=== PATIENT | male | born 1945 | race Caucasian/White ===

== ENCOUNTER → 2016-10-07 | Outpatient (CLI) | payer MEDICARE, BC ==
[~2016-10-07] MED LIST: ALDACTONE25 M1 PO; ASPI-COR81 M1 PO; LISINOPRIL10 MG PO; MEDROL DOSEPAK4 MG PO; OMEPRAZOLE D/R20 MG PO; PRAVASTATIN SOD10 MG PO; TOPROL XL100 MG PO; VIBRAMYCIN100 MG PO; WARFARIN SOD5 MG PO
[2016-10-07 11:05] LABS: POTASSIUM 4.4 mmol/L (3.5-5.1)
== END | disposition home or self-care (01) ==
LOC: LAB 09:48
PROVIDERS: Internal Medicine Cardiovascular Disease
DX: I42.9 Cardiomyopathy, unspecified (principal); I48.92 Unspecified atrial flutter; I51.9 Heart disease, unspecified; I27.2 Other secondary pulmonary hypertension

== ENCOUNTER → 2016-11-16 | Outpatient (CLI) | payer MEDICARE, BC ==
[2016-11-16 15:09] LABS: BUN 29 mg/dl (7-24); CARBON DIOXIDE 31 mmol/L (21-32); CHLORIDE 105 mmol/L (98-107); EST GLOM FILT AFRICAN AMERICAN > 60 ml/min; GLUCOSE 100 mg/dL (65-99); POTASSIUM 4.7 mmol/L (3.5-5.1); SODIUM 143 mmol/L (136-145)
== END | disposition home or self-care (01) ==
LOC: LAB 13:49
PROVIDERS: Internal Medicine Cardiovascular Disease
DX: I42.9 Cardiomyopathy, unspecified (principal)

== ENCOUNTER → 2017-01-13 | Outpatient (CLI) | payer MEDICARE, BC ==
[2017-01-13 09:18] LABS: BASO # 0.1 10*3/uL (0.0-0.1); BASO % 1.1 % (0.0-1.0); EOS # 0.4 10*3/uL (0.0-0.4); EOS % 4.7 % (1.0-4.0); HEMATOCRIT 52.3 % (42.0-52.0); HEMOGLOBIN 16.7 g/dl (14.0-18.0); LYMPH # 2.2 10*3/uL (1.3-4.4); LYMPH % 23.6 % (27.0-41.0); MEAN CELL VOLUME 93.7 fl (80.0-94.0); MEAN CORPUSCULAR HGB 29.9 pg (27.0-31.0); MEAN CORPUSCULAR HGB CONC 31.9 g/dl (33.0-37.0); MEAN PLATELET VOLUME 12.2 fl (9.6-12.3); MONO % 10.7 % (3.0-9.0); NEUT # 5.5 10*3/uL (2.3-7.9); NEUT % 59.5 % (47.0-73.0); PLATELET COUNT AUTOMATED 173 10*3/uL (130-400); RED BLOOD COUNT 5.58 10*6/uL (4.50-5.90); RED CELL DISTRI WIDTH 14.3 % (0-14.5); WHITE BLOOD COUNT 9.2 10*3/uL (4.8-10.8)
[2017-01-13 10:00] LABS: ALBUMIN 3.9 gm/dl (3.1-4.5); ALKALINE PHOSPHATASE 86 U/L (45-117); BILIRUBIN, DIRECT 0.3 mg/dL (0.0-0.2); BUN 31 mg/dl (7-24); CHLORIDE 102 mmol/L (98-107); CHOLESTEROL 163 mg/dL (<200); CREATININE 1.28 mg/dL (0.70-1.30); HDL CHOLESTEROL 44 mg/dl (40-60); LDL CHOLESTEROL 105 mg/dL (9-159); POTASSIUM 4.5 mmol/L (3.5-5.1); SGOT/AST 19 IU/L (3-35); SGPT/ALT 28 U/L (12-78); SODIUM 138 mmol/L (136-145); THYROXINE (T4) TOTAL 10.5 ug/dl (4.5-12.1); TOTAL PROTEIN 8.3 gm/dL (6.4-8.2); TRIGLYCERIDES 72 mg/dl (<150); VLDL CHOLESTEROL 14 mg/dL (6-40)
== END | disposition home or self-care (01) ==
LOC: LAB 08:19
PROVIDERS: Family Medicine
DX: Z12.5 Encounter for screening for malignant neoplasm of prostate (principal); I50.9 Heart failure, unspecified; R35.1 Nocturia; R60.0 Localized edema; R06.02 Shortness of breath; F17.200 Nicotine dependence, unspecified, uncomplicated; Z95.0 Presence of cardiac pacemaker

== ENCOUNTER → 2017-05-14 | Outpatient (CLI) | payer MEDICARE | END | disposition home or self-care (01) | LOC: RAD 13:52 | DX: M25.511 Pain in right shoulder (principal) ==

== ENCOUNTER 2017-07-05 19:56 | Inpatient (IN) | payer MEDICARE ==
[~2017-07-05] VITALS: Ht 175.2 cm; Wt 72.6 kg
[~2017-07-05 19:56] MED LIST changes: -BACTRIM 400-801 EACH PO; -DIGOXIN250 MCG PO; -ENTRESTO 97 MG1 EACH PO; -LASIX20 MG PO; -METOPROLOL SUC100 M1 PO; -VITAMIN D31000 UNIT PO; -XARE15TA PO
[2017-07-05 20:00] VITALS: BP 95/62
[2017-07-05 20:02] VITALS: BP 97/64
[2017-07-05 20:17] LABS: HEMATOCRIT 50.1 % (42.0-52.0); HEMOGLOBIN 15.9 g/dl (14.0-18.0); MEAN CELL VOLUME 91.8 fl (80.0-94.0); MEAN CORPUSCULAR HGB 29.1 pg (27.0-31.0); MEAN CORPUSCULAR HGB CONC 31.7 g/dl (33.0-37.0); MEAN PLATELET VOLUME 10.8 fl (9.6-12.3); PLATELET COUNT AUTOMATED 339 10*3/uL (130-400); RED BLOOD COUNT 5.46 10*6/uL (4.50-5.90); RED CELL DISTRI WIDTH 14.4 % (0-14.5); WHITE BLOOD COUNT 18.1 10*3/uL (4.8-10.8)
[2017-07-05 20:26] LABS: ACT PARTIAL THROMBO TIME 28.9 SECONDS (20.8-31.5); INTERNATIONAL NORM RATIO 1.2 (2.0-3.5)
[2017-07-05 20:29] VITALS: BP 90/58; BP 93/58
[2017-07-05 20:33] LABS: ALBUMIN 3.3 gm/dl (3.1-4.5); ALKALINE PHOSPHATASE 83 U/L (45-117); BUN 48 mg/dl (7-24); CHLORIDE 106 mmol/L (98-107); CREATININE 1.98 mg/dL (0.70-1.30); SGOT/AST 16 IU/L (3-35); SGPT/ALT 31 U/L (12-78); SODIUM 137 mmol/L (136-145); TOTAL PROTEIN 7.5 gm/dL (6.4-8.2)
[2017-07-05 20:39] LABS: POTASSIUM 6.5 mmol/L (3.5-5.1); TROPONIN I < 0.015 ng/ml (<0.045)
[2017-07-05 20:47] LABS: VACUOLATION OF NEUTROPHILS SLIGHT
[2017-07-05 20:51] LABS: TOTAL CELLS COUNTED 100 #CELLS
[2017-07-05 20:53] LABS: BASOPHILS 1 % (0-1)
[2017-07-05 20:54] LABS: PLATELET SUFFICIENCY NORMAL (NORMAL); TOXIC GRANULATION SLIGHT
[2017-07-05] MEDS ORDERED: ENTRESTO 97 MG1 EACH PO (21:46)
[2017-07-05] MEDS ORDERED: XARE15TA PO (21:47)
[2017-07-05] MEDS ORDERED: DIGOXIN250 MCG PO (21:49)
[2017-07-05] MEDS ORDERED: LASIX20 MG PO (21:50)
[2017-07-05 22:25] LABS: CREATININE 1.9 mg/dL (0.70-1.30)
[2017-07-05 22:26] LABS: POTASSIUM 6.5 mmol/L (3.5-5.1)
[2017-07-05] MEDS ORDERED: BACTRIM 400-801 EACH PO (22:31)
[2017-07-06] VITALS: BP 95/60
[2017-07-06 05:54] LABS: HEMATOCRIT 45.3 % (42.0-52.0); HEMOGLOBIN 14.2 g/dl (14.0-18.0); MEAN CELL VOLUME 91.5 fl (80.0-94.0); MEAN CORPUSCULAR HGB 28.7 pg (27.0-31.0); MEAN CORPUSCULAR HGB CONC 31.3 g/dl (33.0-37.0); MEAN PLATELET VOLUME 10.9 fl (9.6-12.3); PLATELET COUNT AUTOMATED 280 10*3/uL (130-400); RED BLOOD COUNT 4.95 10*6/uL (4.50-5.90); RED CELL DISTRI WIDTH 14.4 % (0-14.5); WHITE BLOOD COUNT 14.5 10*3/uL (4.8-10.8)
[2017-07-06 05:56] LABS: CREATININE 1.45 mg/dL (0.70-1.30); POTASSIUM 5.7 mmol/L (3.5-5.1)
[2017-07-06 06:00] LABS: ALBUMIN 2.9 gm/dl (3.1-4.5); CREATININE 1.44 mg/dL (0.70-1.30); PHOSPHOROUS 3.2 mg/dL (2.5-4.9); POTASSIUM 5.7 mmol/L (3.5-5.1); TOTAL PROTEIN 6.5 gm/dL (6.4-8.2)
[2017-07-06 06:06] LABS: THYROID STIM HORMONE (HS) 0.925 uIU/ml (0.358-4.75)
[2017-07-06 07:00] LABS: BASOPHILS 1 % (0-1); PLATELET SUFFICIENCY NORMAL (NORMAL); TOTAL CELLS COUNTED 100 #CELLS
[2017-07-06 07:25] LABS: VITAMIN D, 25-HYDROXY 20.7 ng/mL (30-100)
[2017-07-06 08:00] VITALS: BP 116/62
[2017-07-06 12:00] VITALS: BP 124/58
[2017-07-06 15:35] LABS: BUN 37 mg/dl (7-24); CHLORIDE 106 mmol/L (98-107); CREATININE 1.24 mg/dL (0.70-1.30); POTASSIUM 5.9 mmol/L (3.5-5.1); SODIUM 136 mmol/L (136-145)
[2017-07-06 16:00] VITALS: BP 118/62
[2017-07-06 20:00] VITALS: BP 104/47
[2017-07-07] VITALS: BP 103/51
[2017-07-07 07:23] LABS: HEMATOCRIT 49.4 % (42.0-52.0); HEMOGLOBIN 15.8 g/dl (14.0-18.0); MEAN CORPUSCULAR HGB 29.8 pg (27.0-31.0); MEAN PLATELET VOLUME 10.4 fl (9.6-12.3); PLATELET COUNT AUTOMATED 279 10*3/uL (130-400); RED BLOOD COUNT 5.31 10*6/uL (4.50-5.90); RED CELL DISTRI WIDTH 14.2 % (0-14.5); WHITE BLOOD COUNT 14.7 10*3/uL (4.8-10.8)
[2017-07-07 07:30] LABS: CHLORIDE 107 mmol/L (98-107); CREATININE 1.16 mg/dL (0.70-1.30); POTASSIUM 5.7 mmol/L (3.5-5.1); SODIUM 138 mmol/L (136-145)
[2017-07-07 07:32] LABS: BUN 25 mg/dl (7-24)
[2017-07-07 07:48] LABS: TOTAL CELLS COUNTED 100 #CELLS
[2017-07-07 07:49] LABS: PLATELET SUFFICIENCY NORMAL (NORMAL)
[2017-07-07 08:00] VITALS: BP 110/69
[2017-07-07 12:00] VITALS: BP 116/63
[2017-07-07 15:06] LABS: BUN 25 mg/dl (7-24); CHLORIDE 104 mmol/L (98-107); CREATININE 1.25 mg/dL (0.70-1.30); POTASSIUM 4.9 mmol/L (3.5-5.1); SODIUM 138 mmol/L (136-145)
[2017-07-07] MEDS ORDERED: VITAMIN D31000 UNIT PO (15:13)
[2017-07-07] MEDS ORDERED: METOPROLOL SUC100 M1 PO (15:13)
[2017-07-07 16:00] VITALS: BP 131/72
== END 2017-07-07 16:36 | disposition home or self-care (01) | DRG 683 ==
LOC: ED 19:56 → EDHOLD 20:21 → 4E 20:21
PROVIDERS: Internal Medicine; Internal Medicine Hospice and Palliative Medicine; Student in an Organized Health Care Education/Training Program
DX: N17.0 Acute kidney failure with tubular necrosis (principal); E44.0 Moderate protein-calorie malnutrition; E11.65 Type 2 diabetes mellitus with hyperglycemia; E83.41 Hypermagnesemia; E87.5 Hyperkalemia; I48.0 Paroxysmal atrial fibrillation; I50.32 Chronic diastolic (congestive) heart failure; E87.8 Other disorders of electrolyte and fluid balance, not elsewhere classified; E86.0 Dehydration; E78.5 Hyperlipidemia, unspecified; Z80.0 Family history of malignant neoplasm of digestive organs; J06.9 Acute upper respiratory infection, unspecified; I25.10 Atherosclerotic heart disease of native coronary artery without angina pectoris; J44.9 Chronic obstructive pulmonary disease, unspecified; F17.210 Nicotine dependence, cigarettes, uncomplicated; Z95.0 Presence of cardiac pacemaker; Z79.82 Long term (current) use of aspirin; Z79.899 Other long term (current) drug therapy; Z80.3 Family history of malignant neoplasm of breast; I25.2 Old myocardial infarction

== ENCOUNTER → 2017-07-05 | Outpatient (CLI) | payer MEDICARE ==
[~2017-07-05] MED LIST changes: +BACTRIM 400-801 EACH PO; +DIGOXIN250 MCG PO; +ENTRESTO 97 MG1 EACH PO; +LASIX20 MG PO; +METOPROLOL SUC100 M1 PO; +VITAMIN D31000 UNIT PO; +XARE15TA PO
[2017-07-05 15:13] LABS: HEMATOCRIT 53.3 % (42.0-52.0); HEMOGLOBIN 17.2 g/dl (14.0-18.0); MEAN CELL VOLUME 91.3 fl (80.0-94.0); MEAN CORPUSCULAR HGB 29.5 pg (27.0-31.0); MEAN CORPUSCULAR HGB CONC 32.3 g/dl (33.0-37.0); MEAN PLATELET VOLUME 10.6 fl (9.6-12.3); PLATELET COUNT AUTOMATED 302 10*3/uL (130-400); RED BLOOD COUNT 5.84 10*6/uL (4.50-5.90); RED CELL DISTRI WIDTH 14.4 % (0-14.5); WHITE BLOOD COUNT 17.7 10*3/uL (4.8-10.8)
[2017-07-05 15:31] LABS: ALBUMIN 3.6 gm/dl (3.1-4.5); BILIRUBIN, DIRECT 0.2 mg/dL (0.0-0.2); CREATININE 1.56 mg/dL (0.70-1.30); TOTAL PROTEIN 8.5 gm/dL (6.4-8.2)
[2017-07-05 15:50] LABS: BASOPHILS 1 % (0-1); PLATELET SUFFICIENCY NORMAL (NORMAL); TOTAL CELLS COUNTED 100 #CELLS
[2017-07-05 15:51] LABS: BURR CELLS FEW; TOXIC GRANULATION SLIGHT
[2017-07-05 16:04] LABS: POTASSIUM 6.5 mmol/L (3.5-5.1)
== END | disposition home or self-care (01) ==
LOC: LAB 14:37
PROVIDERS: Family Medicine
DX: M47.896 Other spondylosis, lumbar region (principal); M47.892 Other spondylosis, cervical region; M25.551 Pain in right hip; R20.0 Anesthesia of skin; M25.511 Pain in right shoulder; Z79.899 Other long term (current) drug therapy

== ENCOUNTER → 2017-07-09 | Outpatient (CLI) | payer MEDICARE ==
[~2017-07-09] MED LIST changes: +BACTRIM 400-801 EACH PO; +DIGOXIN250 MCG PO; +ENTRESTO 97 MG1 EACH PO; +LASIX20 MG PO; +METOPROLOL SUC100 M1 PO; +VITAMIN D31000 UNIT PO; +XARE15TA PO
[2017-07-09 11:15] LABS: CHLORIDE 105 mmol/L (98-107); CREATININE 1.31 mg/dL (0.70-1.30); POTASSIUM 4.3 mmol/L (3.5-5.1); SODIUM 140 mmol/L (136-145)
[2017-07-09 11:19] LABS: BUN 36 mg/dl (7-24)
== END | disposition home or self-care (01) ==
LOC: LAB 10:15
PROVIDERS: Internal Medicine Hospice and Palliative Medicine
DX: E87.5 Hyperkalemia (principal)

== ENCOUNTER → 2018-01-11 | Outpatient (CLI) | payer MEDICARE ==
[2018-01-11 09:30] LABS: ALBUMIN 3.7 gm/dl (3.1-4.5); ALKALINE PHOSPHATASE 132 U/L (45-117); BILIRUBIN, DIRECT 0.2 mg/dL (0.0-0.2); BUN 30 mg/dl (7-24); CHLORIDE 108 mmol/L (98-107); CHOLESTEROL 157 mg/dL (<200); CREATININE 1.18 mg/dL (0.70-1.30); HDL CHOLESTEROL 43 mg/dl (40-60); LDL CHOLESTEROL 100 mg/dL (9-159); POTASSIUM 4.9 mmol/L (3.5-5.1); SGOT/AST 20 IU/L (3-35); SGPT/ALT 44 U/L (12-78); SODIUM 142 mmol/L (136-145); TOTAL PROTEIN 8.2 gm/dL (6.4-8.2); TRIGLYCERIDES 72 mg/dl (<150); VLDL CHOLESTEROL 14 mg/dL (6-40)
[2018-01-11 09:37] LABS: BASO # 0.1 10*3/uL (0.0-0.1); EOS # 0.5 10*3/uL (0.0-0.4); EOS % 4.8 % (1.0-4.0); HEMATOCRIT 53.5 % (42.0-52.0); HEMOGLOBIN 16.4 g/dl (14.0-18.0); LYMPH # 2.4 10*3/uL (1.3-4.4); LYMPH % 24.7 % (27.0-41.0); MEAN CELL VOLUME 92.4 fl (80.0-94.0); MEAN CORPUSCULAR HGB 28.3 pg (27.0-31.0); MEAN CORPUSCULAR HGB CONC 30.7 g/dl (33.0-37.0); MEAN PLATELET VOLUME 12.4 fl (9.6-12.3); MONO # 1.2 10*3/uL (0.1-1.0); MONO % 12.4 % (3.0-9.0); NEUT # 5.5 10*3/uL (2.3-7.9); NEUT % 56.6 % (47.0-73.0); PLATELET COUNT AUTOMATED 166 10*3/uL (130-400); RED BLOOD COUNT 5.79 10*6/uL (4.50-5.90); WHITE BLOOD COUNT 9.7 10*3/uL (4.8-10.8)
== END | disposition home or self-care (01) ==
LOC: LAB 08:52
PROVIDERS: Family Medicine
DX: Z12.5 Encounter for screening for malignant neoplasm of prostate (principal); I48.91 Unspecified atrial fibrillation; N28.9 Disorder of kidney and ureter, unspecified; E78.5 Hyperlipidemia, unspecified

== ENCOUNTER → 2018-02-14 | Outpatient (CLI) | payer MEDICARE | END | disposition home or self-care (01) | LOC: LAB 09:37 | DX: R73.9 Hyperglycemia, unspecified (principal) ==

== ENCOUNTER 2018-05-24 10:08 | Inpatient (IN) | payer MEDICARE ==
[2018-05-24] VITALS (46 sets, daily range): BP systolic 71–155; BP diastolic 2–78
[~2018-05-24] VITALS: Ht 172.7 cm; Wt 74.6 kg
--- NOTE | ~2018-05-24 | PR ---
[place], [place] PROGRESS NOTE NAME: ASHA PALENCIA [facility] #: [id number] UNIT #: [id number] ROOM: 528 DOCTOR: BRENTON HUDSON MD BIRTHDATE: [birth year] DOS: 05/29/2018 CARDIOLOGY PROGRESS NOTE SUBJECTIVE: The patient was seen at his bedside in the Intensive Care Unit today with family in attendance. He is sitting up and remains on BiPAP. He says he is breathing more easily. He still has a cough. He denies fevers or chills. He denies any chest discomfort. PHYSICAL EXAMINATION: VITAL SIGNS: Today, his pulse is 68 and irregularly irregular, blood pressure is 115/61. He is afebrile. NECK: Supple. He has no jugular distention. Carotids are full. There are no bruits. He has no neck or supraclavicular masses and no thyromegaly. LUNGS: Respirations are unlabored. His chest has decreased breath sounds at the bases, but no wheezes. HEART: Has an irregularly irregular rhythm. There was no murmur or gallop. ABDOMEN: Benign. EXTREMITIES: Showed no edema. LABORATORY DATA: White count is 17,400, hemoglobin 13.9, platelet count 234,000. Sodium 146, potassium 4.8, chloride 110, CO2 of 31, BUN 45, creatinine 0.93. IMPRESSION: 1. History of dilated nonischemic cardiomyopathy, which improved dramatically with guideline-directed medical therapies. 2. Hospitalization with acute respiratory failure and shock due to influenza A infection. 3. Permanent atrial fibrillation. 4. Implantable cardioverter-defibrillator in place. 5. Type 2 diabetes mellitus. PLAN: We are continuing supportive care. Yesterday, he was placed back on oral metoprolol and Entresto and does seem to be tolerating this well. We will continue to follow him with his primary physicians and development editor. I thank the hospitalist for asking our advice regarding his care. [place], [place] PROGRESS NOTE NAME: ASHA PALENCIA [facility] #: [id number] UNIT #: [id number] ROOM: 528 DOCTOR: BRENTON HUDSON MD BIRTHDATE: [birth year] BRENTON HUDSON MD CM:PNTRANS [id number] BRENTON HUDSON MD 05/30/18 1319 interface
--- NOTE | ~2018-05-24 | PR ---
[place], [place] PROGRESS NOTE NAME: ASHA PALENCIA [facility] #: [id number] UNIT #: [id number] ROOM: [facility] DOCTOR: BRENTON HUDSON MD BIRTHDATE: [birth year] DOS: 05/26/2018 CARDIOLOGY PROGRESS NOTE SUBJECTIVE: The patient was seen at his bedside in the intensive care unit today, 05/26/2018, for followup of his history of nonischemic cardiomyopathy, permanent atrial fibrillation, and septic shock. He is a 72-year-old man who presented to the hospital on this occasion with respiratory failure and hypotension. He was found to have influenza A. We were asked to follow him, because of his atrial fibrillation and history of severe left ventricular dysfunction. Happily, his left ventricular function has improved over the years and currently his ejection fraction is about 45-50%. He shows no signs of heart failure. He remains on pressors, but these are being weaned. He remains intubated and on a ventilator. PHYSICAL EXAMINATION: VITAL SIGNS: Today, his pulse is 90 and irregularly irregular. Blood pressure is 102/58. He is afebrile. NECK: Supple. He has no jugular distention. Carotids are full. LUNGS: Respirations are per ventilator. He has decreased breath sounds at the bases. I did not hear wheezes. HEART: Has an irregularly irregular rhythm. There are no murmurs or gallops. ABDOMEN: Soft. EXTREMITIES: Showed no edema. Monitor shows continued atrial fibrillation. LABORATORY DATA: Hemoglobin is 13.3, white count 16,900, platelet count 186,000. Blood gas this morning, pH 7.351, pCO2 of 47.4, pO2 of 81.1, bicarbonate 25.6. Sodium today is 144, potassium 4.6, chloride 111, CO2 of 28, BUN 31, creatinine 0.9. IMPRESSION: 1. Influenza A with shock and acute respiratory failure. 2. Exacerbation of chronic obstructive pulmonary disease. 3. History of dilated nonischemic cardiomyopathy, recovered. 4. Atrial fibrillation with a controlled ventricular response. 5. History of ICD in place. 6. History of type 2 diabetes mellitus. PLAN: We will continue supportive care and observation with his other physicians; however, his main problems now are infectious and these are being treated by his other physicians with apparent good result. We thank the hospitalist physicians for asking our advice regarding his care. [place], [place] PROGRESS NOTE NAME: ASHA PALENCIA UNIT #: [id number] ROOM: [facility] DOCTOR: BECCA TORO,BRENTON BIRTHDATE: [birth year] BRENTON HUDSON MD CM:PNTRANS 8 BRENTON HUDSON MD 05/26/18 0849 interface
--- NOTE | ~2018-05-24 | CON ---
[place], [place] REPORT OF CONSULTATION NAME: ASHA PALENCIA [facility] #: [id number] UNIT #: [id number] ROOM: [facility] DOCTOR: REJI ALANIZ MD,KANDY BIRTHDATE: [birth year] DOS: 05/25/2018 PULMONARY CRITICAL CARE EVALUATION AND MANAGEMENT REASON FOR CONSULTATION: Assess the patient for acute respiratory failure management. HISTORY OF PRESENT ILLNESS: In this document, review of the medical record was done by the other physicians since the patient is noted at this time sedated on the mechanical ventilator and unable to provide any history. The history for the patient was recorded as a 72-year-old male who has been brought to the hospital by the EMS as the patient has been noted with symptoms of progressive shortness breath, which appeared to be quite severe. The symptoms started after the patient developed sore throat, cough for about a week. The patient had been prescribed some cough medication by the primary care physician. The symptoms were noted progressively worsening. The patient's pulse oxygen saturation checked at home by the spouse, noted pulse ox saturation as 85%. The patient was brought to the hospital, noted with progressive severe acute hypercapnic respiratory failure with hypoxia requiring intubation and mechanical ventilation. The patient was also noted with symptoms of lethargy and decreased responsiveness as well. He has been admitted to the hospital and the patient was intubated and started on mechanical ventilation as well. REVIEW OF SYSTEMS: Could not be completed since the patient is currently intubated, noted on mechanical ventilation. PAST MEDICAL HISTORY: 1. Atrial fibrillation. 2. Coronary artery disease. 3. Congestive heart failure with systolic dysfunction. 4. COPD. 5. Gastroesophageal reflux. 6. Pulmonary hypertension, details unknown. 7. Vitamin D deficiency. PAST SURGICAL HISTORY: 1. Coronary artery bypass grafting. 2. Right inguinal hernia repair. SOCIAL HISTORY: The patient is , was living at home prior to admission to the hospital. Noted with a history of alcohol use in the past, discontinued in 2008. Tobacco use was noted from younger age, a pack of cigarettes per day or more, and currently noted intermittent tobacco use. FAMILY HISTORY: Father at age 8484 years old with colon cancer. Mother at age 62 with complications of breast cancer. HOME MEDICATIONS: Listed on admission as ProAir HFA, aspirin, digoxin, Entresto, Advair 250/50, Lasix, metoprolol tartrate, pravastatin, and Xarelto. [place], [place] REPORT OF CONSULTATION [facility] [id number] UNIT #: [id number] ROOM: [facility] DOCTOR: REJI ALANIZ MD,KANDY BIRTHDATE: [birth year] DRUG ALLERGIES: No known drug allergies. MEDICATIONS: Which have been currently administered on this hospitalization noted use of Protonix, Lipitor, Solu-Medrol 60 mg q. eight hours, norepinephrine, vasopressin, IV vancomycin, cefepime, Zithromax, and Tamiflu. The patient is also receiving propofol for sedation. PHYSICAL EXAMINATION: GENERAL: The patient is a 72-year-old male who has been currently intubated on mechanical ventilator, noted partially with reduction in sedation. Height was recorded as 5 feet 8 inches, weight of 164 pounds, BMI 25. VITAL SIGNS: Which have been recorded showed the temperature was recorded as 100 degrees Fahrenheit, the highest temperature, rectal temperature, otherwise noted normal temperature. Respiratory rate recorded as 15-16 at this time on mechanical ventilator. Blood pressure noted yesterday as 71/34-100/50. Intake recorded as intake of 5133 mL, the output 1250 mL, positive 3.83 liters. Pulse oxygen saturation on 35% oxygen on mechanical ventilator is 95% saturation; previously on 10 liters high-flow nasal cannula, it was 88% saturation on admission. HEENT: The patient is currently intubated. Orogastric tube is in place. Head is atraumatic. NECK: Supple. CARDIOVASCULAR: S1 and S2 audible. LUNGS: Noted with decreased breath sounds in the lungs bilaterally. Expiratory wheezing. ABDOMEN: Flat, soft, nontender. Bowel sounds present. EXTREMITIES: Noted without any acute edema. MUSCULOSKELETAL: Without any acute deformities. CENTRAL NERVOUS SYSTEM: Cranial nerves 2 through 12 intact. LABORATORY DATA: Lactic acid on admission 2.2, follow-up 2.1 and then 1.9. CBC that was done on 05/24/2018 on admission with WBC count 21.2, hemoglobin and hematocrit normal, platelet count normal. CMP of 05/24/2018: BUN 54, creatinine 1.71, glucose 141, potassium 5.2, magnesium 2.5. PT, PTT on 05/24/2018 was noted as normal. BMP that was repeated as the patient was in Intensive Care Unit, BUN 55, creatinine 1.50, glucose of 213. CBC that was done this morning: WBC count is still elevated at 22.9, hemoglobin and hematocrit normal, platelet count normal. CMP this morning: BUN of 43, creatinine 1.20, glucose 210. Phosphorus was 1.7. Albumin 2.7. Endotracheal aspirate Gram stain: Many white blood cells, moderate epithelial cells, moderate Gram-positive cocci in pairs, chains and clusters, normal kane. Review of the arterial blood gas: First arterial blood gas on admission yesterday, pH was 7.10, pCO2 of 86, pO2 of 91. Arterial blood gas repeated on mechanical ventilation, pH was 7.12, pCO2 of 80, pO2 of 118 on assist control, volume control mechanical ventilation. Another arterial blood gas repeated after changes were made in the mechanical ventilator with pH of 7.26, pCO2 of 49, pO2 93, at that time the oxygen was decreased to 35% of oxygen. Arterial blood gas this morning, pH is 7.31, pCO2 of 46, pO2 of 69 on 35% oxygen, assist control mode, tidal volume 650 mL, rate of 14, PEEP of 7. The influenza A and B nasal washing was completed on this admission and was noted with positive influenza A [place], [place] REPORT OF CONSULTATION NAME: ASHA PALENCIA UNIT #: [id number] ROOM: [facility] DOCTOR: REJI ALANIZ MD,[facility] BIRTHDATE: [birth year] infection. REVIEW OF RADIOLOGY DATA: Which was done from the PACS images, chest x-ray that was completed this morning shows endotracheal tube noted in appropriate position, NG tube in the stomach. The patient was noted with infiltration in the right lung as well. The chest x-ray done on admission, the first chest x-ray, was noted without any acute pulmonary infiltration. IMPRESSION: 1. The patient who has initially started with influenza infection later on developed progressive severe acute hypercapnic hypoxemic respiratory failure. 2. Possibility of pneumonia versus edema of the lung noted on the right side as well. 3. Acute kidney injury secondary to current acute sepsis as well. 4. Hypotension secondary to sepsis, which would be considered as septic shock because of end-organ injury with acute kidney injury, changes in mental status. 5. Acute exacerbation of chronic obstructive pulmonary disease as well. 6. Steroid-induced hyperglycemia. 7. Hypophosphatemia. Possibility of refeeding syndrome should remain in consideration. 8. History of known atrial fibrillation. 9. History of congestive heart failure previously known with systolic dysfunction. There was no evidence of acute congestive heart failure at the present time. PLAN OF MANAGEMENT: Decrease Solu-Medrol dose to 40 mg every eight hours. Monitor culture results of sputum. Coverage for Staph aures infection with current influenza infection for the management of pneumonia. Bronchoscopy planned to be done in the next couple of days. Bronchodilators to be continued as previously. Nutrition support will be provided. Aggressive supplementation of the phosphorus. DVT prophylaxis in the form of Xarelto will be continued. Other additional treatment changes will be monitored and manage the patient accordingly. Medical management for hyperglycemia as well. Vasopressors yesterday were needed, Levophed and vasopressin. The vasopressin has been titrated off and the dose of the Levophed has been gradually decreased as well. Other supportive therapy plan of management. Ventilator bundle management. Additional change in treatment will be made for the patient based on progression of the illness. Total time in pulmonary critical care evaluation and management was 40 minutes. [place], [place] REPORT OF CONSULTATION NAME: ASHA PALENCIA [facility] UNIT #: [id number] ROOM: [facility] DOCTOR: KANDY FORD MD BIRTHDATE: [birth year] KANDY MENDOZA MD CM:CONSTR:REPORT OF CONSULTATION 1119 05/25/18 1400 interface
--- NOTE | ~2018-05-24 | PR ---
[place], [place] PROGRESS NOTE [facility]IA [facility] [id number] UN[facility] #: [id number] ROOM: [facility] DOCTOR: BRENTON HUDSON MD BIRTHDATE: [birth year] DOS: 05/28/2018 CARDIOLOGY PROGRESS NOTE SUBJECTIVE: The patient was seen today 05/28/2018 at his bedside in the Intensive Care Unit. Since I saw him a day ago, he has been extubated and is currently on BiPAP. He is very comfortable and is maintaining an adequate oxygenation, heart rate and blood pressure. We are resuming his previous medications that were only available by mouth and he does seem to be doing well with that. As of yet, he has not received his Entresto. He is breathing much more easily and is awake and alert. PHYSICAL EXAMINATION: VITAL SIGNS: His pulse is 100 and irregularly irregular, blood pressure is 137/70. He is afebrile. NECK: Supple. He has no jugular distention. Carotids are full. LUNGS: Respirations are unlabored. Chest has decreased breath sounds at the bases. HEART: Has an irregularly irregular rhythm without murmurs or gallops. ABDOMEN: Soft and normally active. EXTREMITIES: Showed no edema. LABORATORY DATA: Sodium is 146, potassium 4.7, chloride 112, CO2 30, BUN 36, creatinine 0.89. Hemoglobin is 13.2, white count 13,800, platelet count 230,000. IMPRESSION: 1. History of dilated nonischemic cardiomyopathy, which has improved dramatically with guideline directed medical therapies. 2. Hospitalization with acute respiratory failure and shock due to influenza A infection. 3. Permanent atrial fibrillation. 4. History of ICD in place. 5. Type 2 diabetes mellitus. PLAN: We will continue his supportive care and reintroduce his home medications. No other cardiac workup is planned at this time and we will follow him with his primary physicians. We thank the hospitalist physicians for asking our advice regarding his management. [place], [place] PROGRESS NOTE [facility]: [facility]SHA PALENCIA [facility]: [id number] UNIT #: [id number] ROOM: [facility] DOCTOR: BRENTON HUDSON MD BIRTHDATE: [birth year] BRENTON HUDSON MD CM:PNTRANS 1526 BRENTON HUDSON MD 05/29/1811 interface
--- NOTE | ~2018-05-24 | PR ---
[place], [place] PROGRESS NOTE NAME: ASHA PALENCIA [facility] #: [id number] UNIT #: [id number] ROOM: 528 DOCTOR: REJI ALANIZ MD,KANDY BIRTHDATE: [birth year] DOS: 06/01/2018 SUBJECTIVE: The patient was noted comfortable at this time without any acute distress. He has been sitting on the chair this morning. The oxygen supplementation continue with the nasal cannula. No symptoms of fever or chills or hemoptysis. OBJECTIVE: VITAL SIGNS: Normal temperature, respiratory rate 18, heart rate 72, blood pressure 119/56. Pulse oxygen saturation recorded on 2 liters of the patient as 99% saturation. HEENT: Examination shows head was atraumatic. Eyes nonicterus. NECK: Supple. CARDIOVASCULAR: S1, S2 is audible. LUNGS: The patient without any crackle, rhonchi or wheezing. Breaths are noted mildly diminished bilaterally. ABDOMEN: Soft, nontender. Bowel sounds present. EXTREMITIES: The patient was noted without any acute edema. IMPRESSION: 1. The patient with progressive and gradual resolution noted severe acute hypercapnic hypoxemic respiratory failure. 2. Improving acute exacerbation of chronic obstructive pulmonary disease as well. 3. Mild azotemia as well. PLAN OF MANAGEMENT: Discharge planning could be started for potential discharge in the morning. Oxygen assessment for the home need as well. Continue other therapy, plan of management, care plan of treatment. Usual therapies. Other additional treatment changes will be ordered based on the progression of his illness. KANDY MENDOZA MD CM:PNTRANS 1141 [id number] KANDY ALANIZ MD 06/01/18 1518 interface
--- NOTE | ~2018-05-24 | PR ---
[place], [place] PROGRESS NOTE NAME: ASHA PALENCIA [facility] #: [id number] UNIT #: [id number] ROOM: [facility] DOCTOR: REJI ALANIZ MD,KANDY BIRTHDATE: [birth year] DOS: 05/28/2018 PULMONARY PROGRESS NOTE SUBJECTIVE: The patient remains comfortable at this time without any acute distress. He has been successfully liberated from mechanical ventilator. The patient yesterday started on oral nutrition without any difficulty and not been noted any dysphagia. The patient has not been reported any symptoms of chest pain. Cough has been noted at times without any sputum expectoration. He denies symptoms of fever or chills. He denies symptoms of hemoptysis as well. The patient has not been noted with any symptoms of pain of the lower extremity. There was no edema of the lower extremities. He denies headache, diplopia, nausea, or vomiting. PAST MEDICAL, FAMILY, SOCIAL, AND SURGICAL HISTORY: Reviewed for recent assessment, remains unchanged. PHYSICAL EXAMINATION: GENERAL: The patient currently is lying in the bed, using the BiPAP at the present time with settings of 16/10, post liberation mechanical ventilator intermittently except meals. He does speak and able to communicate verbally. VITAL SIGNS: The vital signs of the patient showed normal temperature, respiratory rate of 19-22, heart of 108-91, and blood pressure of 107/63-137/70. HEENT: Examination shows head was atraumatic. Eyes: Nonicterus. NECK: Supple. CARDIOVASCULAR SYSTEM: S1, S2 audible. LUNGS: Kpob-nz-[id number] decreased breath sounds, scattered expiratory wheezing. No crackles. ABDOMEN: Soft. Bowel sounds are present. EXTREMITIES: The patient was noted without any clubbing or cyanosis. Mild peripheral edema. CENTRAL NERVOUS SYSTEM: No focal deficit. VISIBLE SKIN: Without any lesions. LABORATORY DATA: CBC of the patient today: WBC count is 13.8, hemoglobin is 13.2, hematocrit is normal, and platelet count is normal. BMP of the patient on this morning, BUN is 36, creatinine is normal, glucose is 133, and sodium is 146. DIAGNOSTIC DATA: Ultrasound of the abdomen was done for assessment of previous finding of cholelithiasis, possibility of acute cholecystitis noted, there is sludge and stones in the gallbladder with mild gallbladder wall thickening may reflect early cholecystitis. If the clinical suspicion of cholecystitis would be considered, additional testing was recommended such as HIDA scan. The bronchial washing was noted normal kane from yesterday. The Gram stain of the bronchial washing was noted with many white blood cells, few epithelial cells, and few gram-positive change in clusters. IMAGING DATA: The CT scan of the chest was also obtained yesterday for assessment of abnormal chest x-ray was personally reviewed as well prior to [place], [place] PROGRESS NOTE [facility]: [facility] #[facility] [id number] UNIT #: [id number] ROOM: [facility] DOCTOR: REJI ALANIZ MD,KANDY BIRTHDATE: [birth year] weaning from the mechanical ventilator. There was no evidence of any abnormal nodular patchy infiltration noted which is small in the lungs bilaterally and sttdl-xq-sahhdqfq infiltration noted in the right lower lobe and a small area of atelectasis in the left lower lobe. Changes of centrilobular emphysema was also noted. Mediastinal structures review was noted without any significant lymphadenopathy. IMPRESSION: 1. The patient has been currently admitted to the hospital, status post liberation from mechanical ventilator, acute on chronic hypercapnic and hypoxemic respiratory failure. 2. Acute exacerbation of chronic obstructive pulmonary disease. 3. Bilateral pneumonia as well. 4. Overall debility. 5. Cholelithiasis, rule out acute cholecystitis as well. Need further assessment. 6. Past history of nicotine use. PLAN OF MANAGEMENT: Monitor culture results. No change in antibiotic. Continue steroids. Continuation of the BiPAP, after completion of BiPAP couple of hours which was just started again, arterial blood gases will be done for this patient. Adjustment of the BiPAP setting will be done accordingly. De-escalate the antibiotics after the review of the culture results. Continue to complete the course of treatment for the influenza A infection as well for this patient. Other supportive therapy, plan of management, and care plan. Gradual reduction of steroids will be started, most likely from tomorrow. Continue nutritional support. Discontinue Barnett catheter. Discontinuation of the chlorhexidine as well. Supplementation of the phosphorus. Other additional treatment changes will be made based on the progression of the illness. KANDY MENDOZA MD CM:PNTRANS 1819 KANDY ALANIZ MD 05/29/18 0725 interface
--- NOTE | ~2018-05-24 | EKG ---
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
--- NOTE | ~2018-05-24 | PR ---
[place], [place] PROGRESS NOTE NAME: ASHA PALENCIA UNIT #: [id number] ROOM: 528 DOCTOR: KANDY FORD MD BIRTHDATE: [birth year] DOS: 05/31/2018 PULMONARY PROGRESS NOTE SUBJECTIVE: The patient is noted comfortable at this time, resting on the bed this morning, transferred from the ICU to a telemetry floor. He has not received any physical therapy in the last 24 hours. There were no symptoms of fever or chills or coughing. Using BiPAP as ordered, intermittent with use of oxygen. OBJECTIVE: VITAL SIGNS: Which were recorded this morning as the patient was sitting on the chair, normal temperature, respiratory rate 18, heart rate 67, blood pressure 132/72. The pulse oxygen saturation on 4 liters nasal cannula was 99% saturation. HEENT: No acute change. NECK: Supple. CARDIOVASCULAR: S1 and S2 audible. LUNGS: The patient was noted without any wheeze or crackles at the present time. Breaths are noted ughe-tb-epngibrxxj diminished bilaterally. ABDOMEN: Soft, nontender. Bowel sounds present. EXTREMITIES: No acute edema. IMPRESSION: 1. The patient with gradual but progressive resolution and improvement noted in acute hypercapnic and hypoxic respiratory failure and exacerbation of chronic obstructive pulmonary disease. 2. Resolving acute pneumonia and acute bronchitis. 3. Overall debility with muscle deconditioning secondary to acute severe exacerbation of chronic obstructive pulmonary disease and acute respiratory failure. PLAN OF TREATMENT: Continue to titrate oxygen supplementation to 92% or greater. The steroids will be continued. Possible consideration of discharge in the next couple of days. Assessment for home O2 tomorrow morning, but depends on the need of physical therapy. Other therapy and plan of management. Obtain another arterial blood gas to assess the continued improvement in the ventilatory status. [place], [place] PROGRESS NOTE NAME: ASHA PALENCIA UNIT #: [id number] ROOM: 528 DOCTOR: KANDY FORD MD BIRTHDATE: [birth year] KANDY MENDOZA MD CM:PNTRANS [phone] KANDY ALANIZ MD 05/31/18 8937 interface
--- NOTE | ~2018-05-24 | PR ---
[place], [place] PROGRESS NOTE NAME: ASHA PALENCIA [facility] #: [id number] UNIT #: [id number] ROOM: [facility] DOCTOR: REJI ALANIZ MD,KANDY BIRTHDATE: [birth year] DOS: 05/29/2018 INFECTIOUS PROGRESS NOTE SUBJECTIVE: The patient was noted comfortable at this time, resting on the bed, using the BiPAP intermittent break for at bedtime and in the daytime. He has been noted with a stable respiratory status. Denies symptoms of chest pain. Coughing has been noted intermittently at times without sputum expectoration or symptoms of fever or chills. Denies symptoms of nausea, vomiting or diarrhea. Denies symptoms of abdominal pain. Denies any edema or pain of the lower extremity. The operative noted to be fair. This afternoon as the patient was seen, he has been using the BiPAP, appeared to be comfortable on that. The pulse oxygen saturation recorded about 94%-95% saturation at the bedside. OBJECTIVE: VITAL SIGNS: Normal temperature, respiratory rate of 13-24, heart rate of 68-90, blood pressure 156-1111 61. Pulse oxygen saturation on 5 liters 92% BiPAP 40% as 95% saturation. HEENT: No acute change. NECK: Supple. CARDIOVASCULAR: S1, S2 is audible. LUNGS: The patient was noted without any crackles. Moderate decreased breath sounds with scattered expiratory wheezing. There were no crackles. ABDOMEN: Soft, nontender. Bowel sounds present. EXTREMITIES: Without any acute edema. VISIBLE SKIN: No lesions or rashes. MUSCULOSKELETAL: Without acute deformities. CENTRAL NERVOUS SYSTEM: Cranial nerves 2-12 intact. LABORATORY DATA: Arterial blood gas that was done this morning on 5 liter nasal cannula, pH of 7.31, pCO2 58.9, pO2 61.9. CBC of this morning, WBC count of 17.4, hemoglobin 13.9, platelet count normal. CMP of the patient this morning, glucose 148, BUN 45, creatinine was 0.33. Sodium 146. CO2 31. IMPRESSION: 1. The patient slow but gradual resolution and improvement in the acute hypercapnic hypoxemic respiratory failure. 2. Acute exacerbation of chronic obstructive pulmonary disease. 3. Metabolic alkalosis remained stable. 4. The patient with resolving hypercarbia gradually. 5. Atrial fibrillation as well with chronic anticoagulation. PLAN OF MANAGEMENT: The dose of Solu-Medrol has been changed to 40 mg b.i.d. Continuation of the BiPAP plan as previously. Bronchodilator will be continued. Additional treatment changes will be ordered based on the progression of the illness. Other therapy, plan and management. The patient will be done based on progression of the illness. [place], [place] PROGRESS NOTE [id number] UNIT #: [id number] ROOM: [facility] DOCTOR: REJI ALANIZ MD,KANDY BIRTHDATE: [birth year] KANDY MENDOZA MD CM:PNINA [id number] KANDY ALANIZ MD 05/29/18 1703 interface
--- NOTE | ~2018-05-24 | PROC NOTE ---
[place], [place] PROCEDURE NOTE NAME: [id number] UNIT #: [id number] ROOM: [facility] DOCTOR: REJI ALANIZ MD,KANDY BIRTHDATE: [birth year] DOS: 05/27/2018 PREOPERATIVE DIAGNOSES: Excessive secretion production with respiratory failure and chronic obstructive pulmonary disease exacerbation. POSTOPERATIVE DIAGNOSES: Removal of moderate to copious amount of thick mucus impaction of the severe tracheobronchitis finding. There were no endobronchial obstructive lesions. PROCEDURE DESCRIPTION: Informed consent obtained for the patient. The patient brought to the OR and placed in supine position. The patient had a general anesthesia administered for the procedure. The bronchoscope advanced to the endotracheal tube to the lower part of the trachea. The low body trachea noted significant damage change. The patient moderate amount of mucopurulent secretion mixture, which was suctioned at anahi level. Anahi noted sharp. Right upper, right middle, right lower, left upper, lingula, lower lobe bronchi were all noted. Moderate amount of mucopurulent secretion mixture with severe inflammatory finding for the patient or redness submucosal edema. Secretions suctioned out with the help of normal saline wash, sent for culture. No endobronchial obstructive. The finding was discussed with the patient and family members in detail. The patient will be started weaning. CT scan chest will be done prior to transfer to the Intensive Care Unit. KANDY MENDOZA MD CM:PROCNOTE:PROCEDURE NOTE [id number] KANDY ALANIZ MD
--- NOTE | ~2018-05-24 | PR ---
[place], [place] PROGRESS NOTE NAME: ASHA PALENCIA UNIT #: [id number] ROOM: [facility] DOCTOR: BRENTON HUDSON MD BIRTHDATE: [birth year] DOS: 05/27/2018 CARDIOLOGY PROGRESS NOTE SUBJECTIVE: The patient was seen at his bedside in the intensive care unit today, 05/27/2018, for followup of his atrial fibrillation and history of dilated cardiomyopathy. He is a 72-year-old man who had severe nonischemic cardiomyopathy, which was treated by heart failure specialists at the [facility] with an LVAD in 06/2008. With guideline directed medical therapies, his left ventricular function improved and the left ventricular assist device was removed in 02/2009. The patient has been doing reasonably well until the current admission when he developed acute respiratory failure. He was found to be positive for influenza A. He is being treated with broad-spectrum antibiotics as well as Tamiflu and is receiving supportive care. He does seem to be responding to therapies. At the time of his admission, he was septic and shocky. He is no longer on pressor agents and is maintaining a good blood pressure. PHYSICAL EXAMINATION: VITAL SIGNS: He is sedated and on a ventilator. Pulse is 100 and irregularly irregular. Blood pressure is 128/56. He is afebrile. NECK: Supple. He has no jugular distention. Carotids are full. LUNGS: Respirations are unlabored, but he is on a ventilator. He has decreased breath sounds bilaterally. HEART: Has an irregularly irregular rhythm without murmurs or gallops. ABDOMEN: Soft. EXTREMITIES: Showed no edema. IMPRESSIONS: 1. History of dilated, nonischemic cardiomyopathy. This has improved with guideline directed medical therapy. 2. Influenza A infection. 3. Respiratory failure secondary to influenza A. 4. Permanent atrial fibrillation. 5. History of ICD in situ. 6. History of type 2 diabetes mellitus. 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 At this point, he does appear to be hemodynamically stable. We thank the hospitalist physicians for asking our advice regarding the patient's care. [place], [place] PROGRESS NOTE NAME: ASHA PALENCIA UNIT #: [id number] ROOM: [facility] DOCTOR: BRENTON HUDSON MD BIRTHDATE: [birth year] BRENTON HUDSON MD CM:PNTRANS [phone] BRENTON HUDSON MD 05/28/18 0443 interface
--- NOTE | ~2018-05-24 | PR ---
[place], [place] PROGRESS NOTE NAME: ASHA PALENCIA [facility] #: [id number] UNIT #: [id number] ROOM: [facility] DOCTOR: KANDY FORD MD BIRTHDATE: [birth year] DOS: 05/27/2018 PULMONARY CRITICAL CARE EVALUATION AND MANAGEMENT SUBJECTIVE: The patient was seen on 05/27/2018. He remains on the mechanical ventilator. He has been made n.p.o. Bronchoscopy is planned to be done today in the OR settings. The patient has not been noted with any acute hemodynamic instability. Mental status of the patient has been reported normal with sedation vacation per nursing staff. The patient is following vocal commands appropriately. He has not been noted with any respiratory problems, continues on the same mechanical ventilator settings of yesterday without any changes in assist control, volume control mechanical ventilation. OBJECTIVE: VITAL SIGNS: Which were recorded showed the temperature noted as normal, respiratory rate recorded 16, heart rate 100, blood pressure 120/56 to 135/58. The pulse oxygen saturation was recorded as 96% saturation on 35% oxygen. HEENT: Shows head was atraumatic, eyes nonicterus. NECK: Supple. CARDIOVASCULAR: S1 and S2 were audible. LUNGS: The patient was noted with moderate decreased breath sounds with scattered wheezing. There were no crackles. ABDOMEN: Soft. Bowel sounds were present. EXTREMITIES: Without any acute edema. VISIBLE SKIN: No lesions or rashes. MUSCULOSKELETAL: The patient was without any acute major deformities. CENTRAL NERVOUS SYSTEM: Normal mental status noted with sedation vacation. LABORATORY AND DIAGNOSTIC DATA: Chest x-ray was noted with endotracheal tube about 6 cm above the courtney level. The basilar area of atelectasis, suspicion of subtle infiltration and/or mass lesions to be excluded in the right upper lobe. NG tube was noted in place. BMP this morning, BUN of 35, creatinine normal, glucose 152. Vancomycin level was 7.1. CBC: WBC 14.5, hemoglobin 12.8, hematocrit 41.8, and platelet count 197,000. IMPRESSION: 1. The patient with ongoing acute respiratory failure, still noted excessive secretion production. 2. Influenza A infection. 3. Rule out any mass lesion or infiltration in the right upper lobe. 4. Overall debility. 5. Past history of tobacco use. PLAN OF MANAGEMENT: Continue current mechanical ventilator setting. Proceed with fiberoptic bronchoscopy, feeding will be resumed after that. Weaning will be started after bronchoscopy, depends on the assessment of the bronchoscopy. Oxygen supplementation. Continue steroids. Continue antiviral treatment as well. CT scan of the chest will be obtained with IV contrast as well. Any additional treatment changes will be made based on the progression of the illness. [place], [place] PROGRESS NOTE NAME: ASHA PALENCIA UNIT #: [id number] ROOM: [facility] DOCTOR: REJI ALANIZ MD,KANDY BIRTHDATE: [birth year] Total time in pulmonary critical care evaluation and management for the patient was 35 minutes. KANDY MENDOZA MD CM:PNTRANS [phone] KANDY ALANIZ MD 05/28/18 0455 interface
--- NOTE | ~2018-05-24 | PR ---
[place], [place] PROGRESS NOTE NAME: ASHA PALENCIA [facility] #: [id number] UNIT #: [id number] ROOM: [facility] DOCTOR: REJI ALANIZ MD,KANDY BIRTHDATE: [birth year] DOS: 05/26/2018 SUBJECTIVE: The patient remains on mechanical ventilator, sedated, intravenous Diprivan has not been noted with any major hemodynamic instability. Vasopressors have been gradually weaned off for this patient as well. He has been continuing the feeding, which has been tolerated. The intermittent thick secretion, which has been suctioned out from the endotracheal tube was still noted. He was continued on bronchodilators. The patient remains on the ventilator bundle management. Mental status has been noted. The patient with sedation vacation. He was also noted afebrile. OBJECTIVE: GENERAL: The patient is currently intubated. The patient resting on the mechanical ventilated. Orogastric tube and endotracheal tube were both noted in place. NECK: Supple. Head was atraumatic. Eyes nonicterus. CARDIOVASCULAR: S1, S2 is audible. LUNGS: Noted with decreased breath sounds with mild to moderate expiratory wheezing, no crackles. ABDOMEN: Soft, nontender. Bowel sounds present. EXTREMITIES: No acute edema. MUSCULOSKELETAL: Without any acute deformity. VISIBLE SKIN: No lesions or rashes. CENTRAL NERVOUS SYSTEM: Appeared to be intact. The exam is limited. LABORATORY AND DIAGNOSTIC DATA: CMP this morning, glucose 165, BUN 31, creatinine was normal. Phosphorus was 2.1. Albumin 2.5. CBC this morning, WBC count 16.9, hemoglobin 13.3, platelet count was normal. Endotracheal aspirate culture was noted normal. Normal kane at the present time. The arterial blood gas this morning with 35% oxygen is control, volume control, mechanical ventilation, pH of 7.35, pCO2 of 47.4, pO2 of 81. There was no chest x-ray done this morning. IMPRESSION: 1. The patient who has been currently noted with acute severe hypoxic and hypercapnic respiratory failure. 2. Acute exacerbation of chronic obstructive pulmonary disease. 3. Acute pneumonia. 4. Mild azotemia secondary to Solu-Medrol. 5. The patient with a past history of nicotine use as well. 6. Hypophosphatemia still noted. PLAN OF MANAGEMENT: Supplementation ____ with the NG tube will be continued. Continue current dose of feeding. Continuation of DVT prophylaxis. Bronchoscopy was planned for the patient to be done tomorrow morning for this patient as well. The sedation to be continued to keep the patient comfortable for the patient as well. Titrate oxygen supplementation to maintain pulse ox saturation 92% or greater. Other plan of management. The patient care therapy and treatments. Usual treatment, all other plan of management as well. Additional treatment changes will be done based on the progression of the [place], [place] PROGRESS NOTE [id number] #: [id number] ROOM: [facility] DOCTOR: REJI ALANIZ MD,KANDY BIRTHDATE: [birth year] illness. The rest of mechanical ventilation, remains the same. Usual care. All other therapies. Other therapy, plan of management. Further change in medical management, continue to be done based on progression of the illness. Intravenous fluid has been ordered to be discontinued as not needed with current stable hemodynamic stability and good urinary output. Total time spent in pulmonary critical management for patient is 34 minutes. KANDY MENDOZA MD CM:PNTRANS [phone] KANDY ALANIZ MD 05/26/18 1504 interface
--- NOTE | ~2018-05-24 | PR ---
[place], [place] PROGRESS NOTE NAME: ASHA PALENCIA [facility] #: [id number] UNIT #: [id number] ROOM: 528 DOCTOR: KANDY FORD MD BIRTHDATE: [birth year] DOS: 06/02/2018 SUBJECTIVE: The patient was noted comfortable at this time, resting comfortably on the bed. Denies symptoms of chest pain, fever or chills. Denies symptoms of nausea or vomiting. He has been showing progressive resolution and improvement in the respiratory complaints. He has been assessed for the need of oxygen supplementation yesterday. He would be needing oxygen supplementation of 3 liters nasal cannula for the medical management of current respiratory failure prior to discharge. OBJECTIVE: VITAL SIGNS: For the patient recorded normal temperature, respiratory rate of 20, heart rate 60, blood pressure 160/50, pulse oxygen saturation recorded as 96% saturation on 2 liters nasal cannula. HEENT: Examination shows head was atraumatic. Eyes nonicterus. NECK: Supple. CARDIOVASCULAR: S1, S2 audible. LUNGS: The patient was noted without any wheeze or crackles at present time. ABDOMEN: Soft, nontender, bowel sounds present. EXTREMITIES: Without any acute edema. LABORATORY DATA: CBC: WBC count was elevated at 22.5 with normal hemoglobin, hematocrit and platelet count. IMPRESSION: 1. Leukocytosis, most likely steroid effect. There were no clinical signs of acute infection at this time. 2. Resolving severe acute hypercapnic hypoxic respiratory failure with exacerbation of chronic obstructive pulmonary disease. PLAN OF TREATMENT: Discharge the patient on oral antibiotic, ____, bronchodilators. The patient has been also assessed and recommended noninvasive ventilator to prevent acute exacerbation of chronic obstructive pulmonary disease with severe hypercarbia, which was noted on this admission and to reduce the hospitalization and improve the quality of life. [place], [place] PROGRESS NOTE NAME: ASHA PALENCIA UNIT #: [id number] ROOM: 528 DOCTOR: KANDY FORD MD BIRTHDATE: [birth year] KANDY MENDOZA MD CM:PNTRANS [phone] KANDY ALANIZ MD 06/02/18 1333 interface
--- NOTE | ~2018-05-24 | PR ---
[place], [place] PROGRESS NOTE NAME: ASHA PALENCIA [facility] #: [id number] UNIT #: [id number] ROOM: 528 DOCTOR: REJI ALANIZ MD,KANDY BIRTHDATE: [birth year] DOS: 05/30/2018 PULMONARY PROGRESS NOTE SUBJECTIVE: The patient was noted comfortable at this time, sitting on the chair without acute distress, using oxygen supplementation nasal cannula. BiPAP has been used by the patient intermittently during the day with 1 hour break after every 2 hours and continuous use at nighttime. He was still reporting symptoms of grwh-ac-tupaorwm cough without any sputum expectoration, shortness of breath still noted. Denies any symptoms of fever or chills or hemoptysis. Denies any pain of the lower extremity. Generalized weakness and fatigue was noted. OBJECTIVE: VITAL SIGNS: Normal temperature at this time, respiratory rate of 18-20, heart rate of 64-68, blood pressure 120/73-109/55. Intake of 990 mL, output 1125 mL. Negative for about 135 mL. The pulse oxygen saturation on the BiPAP is 93% saturation on nasal cannula and has 92% saturation on 4.5 L nasal cannula. HEENT: Examination shows head was atraumatic. Eyes nonicterus. NECK: Supple. CARDIOVASCULAR: S1, S2 audible. LUNGS: Noted moderate decrease in the lungs noted bilaterally. There were no wheeze or crackles. ABDOMEN: Soft, nontender. EXTREMITIES: With minimal edema. MUSCULOSKELETAL: Without acute deformities. Cranial nerves 2-12 intact. LABORATORY DATA: The culture of the acid fast specimen was pending. The staining for the patient noted as no isolation. Acid fast with arterial blood gas this morning, the patient BiPAP, pH of 7.34, pCO2 of 59, pO2 of 68. This is on 35% oxygen. The CBC this morning, WBC count 18.2, hemoglobin 13.4, platelet count was normal. The CMP this morning, BUN 45, creatinine normal, glucose 134, pCO2 of 34. Albumin of 2.4. IMPRESSION: 1. The patient who has been currently noted with severe piwex-jm-yvgmpqm hypercapnia, hypoxic respiratory failure. 2. Acute exacerbation of chronic obstructive pulmonary disease. 3. Leukocytosis. 4. Basilar area of pneumonia with atelectasis. 5. Severe debility ____ condition secondary to current acute illness. PLAN OF MANAGEMENT: Continuation of the Solu-Medrol the same dose 40 mg b.i.d., the dose will be decreased to 40 mg daily from tomorrow. Continue use of the BiPAP as ordered. Continuation of the oxygen supplementation, bronchodilators administration. Other additional treatment changes will be made based on progression of the illness. No new changes in the management needs to be done today. Physical therapy at the bedside. [place], [place] PROGRESS NOTE NAME: ASHA PALENCIA UNIT #: [id number] ROOM: 528 DOCTOR: KANDY FORD MD BIRTHDATE: [birth year] KANDY MENDOZA MD CM:VICKIE [id number] KANDY ALANIZ MD 05/31/18 0226 interface
[2018-05-24 10:39] LABS: HEMATOCRIT 57.5 % (42.0-52.0); HEMOGLOBIN 17.5 g/dl (14.0-18.0); MEAN CELL VOLUME 94.9 fl (80.0-94.0); MEAN CORPUSCULAR HGB 28.9 pg (27.0-31.0); MEAN CORPUSCULAR HGB CONC 30.4 g/dl (33.0-37.0); MEAN PLATELET VOLUME 12.3 fl (9.6-12.3); PLATELET COUNT AUTOMATED 217 10*3/uL (130-400); RED BLOOD COUNT 6.06 10*6/uL (4.50-5.90); RED CELL DISTRI WIDTH 14.2 % (0-14.5); WHITE BLOOD COUNT 21.3 10*3/uL (4.8-10.8)
[2018-05-24 10:54] LABS: ALBUMIN 3.8 gm/dl (3.1-4.5); ALKALINE PHOSPHATASE 115 U/L (45-117); BUN 54 mg/dl (7-24); CHLORIDE 105 mmol/L (98-107); CREATININE 1.71 mg/dL (0.70-1.30); LIPASE 30 U/L (73-393); POTASSIUM 5.2 mmol/L (3.5-5.1); SGOT/AST 19 IU/L (3-35); SGPT/ALT 20 U/L (12-78); SODIUM 140 mmol/L (136-145)
[2018-05-24 10:57] LABS: PLATELET SUFFICIENCY NORMAL (NORMAL); POLYCHROMASIA SLIGHT; TOTAL CELLS COUNTED 100 #CELLS
[2018-05-24 11:01] LABS: TROPONIN I < 0.015 ng/ml (<0.045)
[2018-05-24 11:26] LABS: ACT PARTIAL THROMBO TIME 24.6 SECONDS (20.8-31.5); INTERNATIONAL NORM RATIO 1.1 (2.0-3.5)
[2018-05-24 11:33] LABS: ABG HCO3 26.4 mmol/l (22-26); ABG O2 SATURATION 94.9 % (95-97); ARTERIAL BLOOD GAS PO2 91.2 mmHg (80-90)
[2018-05-24 11:44] LABS: ABG BASE EXCESS -6.7 mmol/L (-2.0-2.0); ARTERIAL BLOOD GAS PCO2 86.6 mmHg (35-45); ARTERIAL BLOOD GAS PH 7.107 (7.35-7.45)
[2018-05-24] MEDS ORDERED: TOPROL XL100 MG PO (12:56)
[2018-05-24] MEDS ORDERED: ADV 500/50 INH (12:57)
[2018-05-24] MEDS ORDERED: PROAIR HFA8.5 GM INH (12:57)
[2018-05-24] MEDS ORDERED: VIRTUSSIN AC L118 ML PO (13:00)
[2018-05-24 13:07] LABS: ABG HCO3 25.2 mmol/l (22-26); ABG O2 SATURATION 96.9 % (95-97)
[2018-05-24 13:14] LABS: ABG BASE EXCESS -5.8 mmol/L (-2.0-2.0)
[2018-05-24 13:15] LABS: ARTERIAL BLOOD GAS PCO2 80.2 mmHg (35-45); ARTERIAL BLOOD GAS PH 7.13 (7.35-7.45)
[2018-05-24 14:51] LABS: BILIRUBIN 2+ (NEGATIVE); BLOOD 2+ (NEGATIVE); CLARITY SL CLOUDY (CLEAR); COLOR YELLOW (YELLOW); GLUCOSE NEGATIVE (NEGATIVE); KETONE NEGATIVE (NEGATIVE); LEUKO ESTERASE NEGATIVE (NEGATIVE); NITRITE NEGATIVE (NEGATIVE); PH 5.5 (5.0-9.0); SPECIFIC GRAVITY >= 1.030 (1.005-1.030)
[2018-05-24 15:02] LABS: BACTERIA 2+; EPITHELIAL CELLS TNTC; MUCOUS TRACE; WBC 0-2 wbc/hpf (0-5)
[2018-05-24 16:16] LABS: CREATININE 1.5 mg/dL (0.70-1.30); POTASSIUM 4.8 mmol/L (3.5-5.1)
[2018-05-24 16:31] LABS: ABG HCO3 21.7 mmol/l (22-26); ABG O2 SATURATION 97.3 % (95-97); ARTERIAL BLOOD GAS PCO2 49.3 mmHg (35-45); ARTERIAL BLOOD GAS PH 7.268 (7.35-7.45); ARTERIAL BLOOD GAS PO2 93.6 mmHg (80-90)
[2018-05-25] VITALS (61 sets, daily range): BP systolic 86–134; BP diastolic 48–76
[2018-05-25 06:00] LABS: MEAN CELL VOLUME 92.4 fl (80.0-94.0); MEAN CORPUSCULAR HGB 28.4 pg (27.0-31.0); MEAN CORPUSCULAR HGB CONC 30.8 g/dl (33.0-37.0); MEAN PLATELET VOLUME 11.9 fl (9.6-12.3); PLATELET COUNT AUTOMATED 216 10*3/uL (130-400); RED BLOOD COUNT 5.03 10*6/uL (4.50-5.90); RED CELL DISTRI WIDTH 14.3 % (0-14.5); WHITE BLOOD COUNT 22.9 10*3/uL (4.8-10.8)
[2018-05-25 06:15] LABS: INTERNATIONAL NORM RATIO 1.1 (2.0-3.5)
[2018-05-25 06:16] LABS: HEMATOCRIT 46.5 % (42.0-52.0); HEMOGLOBIN 14.3 g/dl (14.0-18.0)
[2018-05-25 06:17] LABS: CHLORIDE 109 mmol/L (98-107); POTASSIUM 4.2 mmol/L (3.5-5.1); SODIUM 140 mmol/L (136-145)
[2018-05-25 06:26] LABS: ALBUMIN 2.7 gm/dl (3.1-4.5); ALKALINE PHOSPHATASE 86 U/L (45-117); CHOLESTEROL 105 mg/dL (<200); FREE T4 1.34 ng/dl (0.76-1.46); HDL CHOLESTEROL 33 mg/dl (40-60); LDL CHOLESTEROL 57 mg/dL (9-159); PHOSPHOROUS 1.7 mg/dL (2.5-4.9); SGOT/AST 16 IU/L (3-35); SGPT/ALT 12 U/L (12-78); THYROID STIM HORMONE (HS) 0.541 uIU/ml (0.358-4.75); TOTAL PROTEIN 6.8 gm/dL (6.4-8.2); TRIGLYCERIDES 76 mg/dl (<150); VLDL CHOLESTEROL 15 mg/dL (6-40)
[2018-05-25 06:34] LABS: BUN 43 mg/dl (7-24)
[2018-05-25 07:14] LABS: ABG BASE EXCESS -3.2 mmol/L (-2.0-2.0); ABG HCO3 22.6 mmol/l (22-26); ABG O2 SATURATION 93.3 % (95-97); ARTERIAL BLOOD GAS PCO2 46.1 mmHg (35-45); ARTERIAL BLOOD GAS PH 7.313 (7.35-7.45); ARTERIAL BLOOD GAS PO2 69.5 mmHg (80-90)
[2018-05-25 07:55] LABS: PLATELET SUFFICIENCY NORMAL (NORMAL); TOTAL CELLS COUNTED 100 #CELLS
[2018-05-25 08:04] LABS: VITAMIN D, 25-HYDROXY 17.2 ng/mL (30-100)
[2018-05-26] VITALS (20 sets, daily range): BP systolic 94–139; BP diastolic 48–69
[2018-05-26 04:51] LABS: BASO % 0.1 % (0.0-1.0); HEMATOCRIT 42.8 % (42.0-52.0); HEMOGLOBIN 13.3 g/dl (14.0-18.0); LYMPH # 0.5 10*3/uL (1.3-4.4); LYMPH % 2.9 % (27.0-41.0); MEAN CELL VOLUME 92.4 fl (80.0-94.0); MEAN CORPUSCULAR HGB 28.7 pg (27.0-31.0); MEAN CORPUSCULAR HGB CONC 31.1 g/dl (33.0-37.0); MEAN PLATELET VOLUME 11.8 fl (9.6-12.3); MONO # 1.4 10*3/uL (0.1-1.0); MONO % 8.5 % (3.0-9.0); NEUT # 14.8 10*3/uL (2.3-7.9); NEUT % 87.6 % (47.0-73.0); NUCLEATED RED BLOOD CELL 0.1 % (0.0-0.0); PLATELET COUNT AUTOMATED 186 10*3/uL (130-400); RED BLOOD COUNT 4.63 10*6/uL (4.50-5.90); RED CELL DISTRI WIDTH 14.6 % (0-14.5); WHITE BLOOD COUNT 16.9 10*3/uL (4.8-10.8)
[2018-05-26 05:07] LABS: ALBUMIN 2.5 gm/dl (3.1-4.5); ALKALINE PHOSPHATASE 80 U/L (45-117); CHLORIDE 111 mmol/L (98-107); PHOSPHOROUS 2.1 mg/dL (2.5-4.9); POTASSIUM 4.6 mmol/L (3.5-5.1); SGOT/AST 16 IU/L (3-35); SGPT/ALT 17 U/L (12-78); SODIUM 144 mmol/L (136-145)
[2018-05-26 05:15] LABS: BUN 31 mg/dl (7-24)
[2018-05-26 07:10] LABS: ABG BASE EXCESS 0.1 mmol/L (-2.0-2.0); ABG HCO3 25.6 mmol/l (22-26); ABG O2 SATURATION 95.7 % (95-97); ARTERIAL BLOOD GAS PCO2 47.4 mmHg (35-45); ARTERIAL BLOOD GAS PH 7.351 (7.35-7.45); ARTERIAL BLOOD GAS PO2 81.1 mmHg (80-90)
[2018-05-27] VITALS (14 sets, daily range): BP systolic 93–146; BP diastolic 50–70
[2018-05-27 05:13] LABS: BASO % 0.1 % (0.0-1.0); HEMATOCRIT 41.8 % (42.0-52.0); HEMOGLOBIN 12.8 g/dl (14.0-18.0); LYMPH # 0.7 10*3/uL (1.3-4.4); MEAN CELL VOLUME 93.7 fl (80.0-94.0); MEAN CORPUSCULAR HGB 28.7 pg (27.0-31.0); MEAN CORPUSCULAR HGB CONC 30.6 g/dl (33.0-37.0); MEAN PLATELET VOLUME 11.8 fl (9.6-12.3); MONO # 1.1 10*3/uL (0.1-1.0); MONO % 7.4 % (3.0-9.0); NEUT # 12.6 10*3/uL (2.3-7.9); NEUT % 86.5 % (47.0-73.0); PLATELET COUNT AUTOMATED 197 10*3/uL (130-400); RED BLOOD COUNT 4.46 10*6/uL (4.50-5.90); RED CELL DISTRI WIDTH 14.7 % (0-14.5); WHITE BLOOD COUNT 14.5 10*3/uL (4.8-10.8)
[2018-05-27 05:35] LABS: BUN 35 mg/dl (7-24); CHLORIDE 108 mmol/L (98-107); CREATININE 0.81 mg/dL (0.70-1.30); POTASSIUM 4.4 mmol/L (3.5-5.1); SODIUM 143 mmol/L (136-145)
[2018-05-27 05:37] LABS: VANCOMYCIN TROUGH 7.1 ug/mL (10-20)
[2018-05-27 16:43] LABS: ABG BASE EXCESS 1.4 mmol/L (-2.0-2.0); ABG O2 SATURATION 97.2 % (95-97); ARTERIAL BLOOD GAS PCO2 47.2 mmHg (35-45); ARTERIAL BLOOD GAS PH 7.371 (7.35-7.45); ARTERIAL BLOOD GAS PO2 90.2 mmHg (80-90)
[2018-05-28] VITALS: BP 110/58
[2018-05-28 02:00] VITALS: BP 122/55
[2018-05-28 06:19] LABS: BASO % 0.2 % (0.0-1.0); HEMATOCRIT 42.7 % (42.0-52.0); HEMOGLOBIN 13.2 g/dl (14.0-18.0); LYMPH # 0.9 10*3/uL (1.3-4.4); LYMPH % 6.8 % (27.0-41.0); MEAN CELL VOLUME 93.4 fl (80.0-94.0); MEAN CORPUSCULAR HGB 28.9 pg (27.0-31.0); MEAN CORPUSCULAR HGB CONC 30.9 g/dl (33.0-37.0); MEAN PLATELET VOLUME 11.6 fl (9.6-12.3); MONO # 0.8 10*3/uL (0.1-1.0); NEUT # 11.8 10*3/uL (2.3-7.9); NEUT % 85.5 % (47.0-73.0); PLATELET COUNT AUTOMATED 230 10*3/uL (130-400); RED BLOOD COUNT 4.57 10*6/uL (4.50-5.90); RED CELL DISTRI WIDTH 14.6 % (0-14.5); WHITE BLOOD COUNT 13.8 10*3/uL (4.8-10.8)
[2018-05-28 06:24] LABS: BUN 36 mg/dl (7-24); CHLORIDE 112 mmol/L (98-107); CREATININE 0.89 mg/dL (0.70-1.30); POTASSIUM 4.7 mmol/L (3.5-5.1); SODIUM 146 mmol/L (136-145)
[2018-05-28 06:26] LABS: VANCOMYCIN TROUGH 16.2 ug/mL (10-20)
[2018-05-28 08:00] VITALS: BP 107/63
[2018-05-28] MEDS ORDERED: TOPROL XL200 MG PO (10:02)
[2018-05-28 12:00] VITALS: BP 137/70
[2018-05-28 12:49] LABS: ABG BASE EXCESS -0.5 mmol/L (-2.0-2.0); ABG HCO3 26.6 mmol/l (22-26); ABG O2 SATURATION 92.7 % (95-97); ARTERIAL BLOOD GAS PCO2 56.8 mmHg (35-45); ARTERIAL BLOOD GAS PH 7.292 (7.35-7.45)
[2018-05-28 14:06] LABS: ACID FAST SPEC PROCESSING Concentration (.)
[2018-05-28 16:00] VITALS: BP 98/57
[2018-05-28 20:00] VITALS: BP 94/64
[2018-05-29] VITALS: BP 96/54
[2018-05-29 04:00] VITALS: BP 117/65
[2018-05-29 06:05] LABS: HEMATOCRIT 45.8 % (42.0-52.0); HEMOGLOBIN 13.9 g/dl (14.0-18.0); MEAN CELL VOLUME 94.4 fl (80.0-94.0); MEAN CORPUSCULAR HGB 28.7 pg (27.0-31.0); MEAN CORPUSCULAR HGB CONC 30.3 g/dl (33.0-37.0); MEAN PLATELET VOLUME 11.6 fl (9.6-12.3); NUCLEATED RED BLOOD CELL 0.1 % (0.0-0.0); PLATELET COUNT AUTOMATED 234 10*3/uL (130-400); RED BLOOD COUNT 4.85 10*6/uL (4.50-5.90); RED CELL DISTRI WIDTH 14.4 % (0-14.5); WHITE BLOOD COUNT 17.4 10*3/uL (4.8-10.8)
[2018-05-29 06:14] LABS: ALBUMIN 2.6 gm/dl (3.1-4.5); ALKALINE PHOSPHATASE 74 U/L (45-117); BUN 45 mg/dl (7-24); CHLORIDE 110 mmol/L (98-107); CREATININE 0.93 mg/dL (0.70-1.30); PHOSPHOROUS 3.9 mg/dL (2.5-4.9); POTASSIUM 4.8 mmol/L (3.5-5.1); SGOT/AST 26 IU/L (3-35); SGPT/ALT 54 U/L (12-78); SODIUM 146 mmol/L (136-145); TOTAL PROTEIN 6.6 gm/dL (6.4-8.2)
[2018-05-29 06:25] LABS: DIGOXIN 0.52 ng/ml (0.8-2.0)
[2018-05-29 07:03] LABS: PLATELET SUFFICIENCY NORMAL (NORMAL); TOTAL CELLS COUNTED 100 #CELLS
[2018-05-29 07:55] LABS: ABG BASE EXCESS 2.1 mmol/L (-2.0-2.0); ABG HCO3 29.6 mmol/l (22-26); ABG O2 SATURATION 92.5 % (95-97); ARTERIAL BLOOD GAS PCO2 58.9 mmHg (35-45); ARTERIAL BLOOD GAS PH 7.317 (7.35-7.45); ARTERIAL BLOOD GAS PO2 61.9 mmHg (80-90)
[2018-05-29 08:00] VITALS: BP 111/61
[2018-05-29 11:48] VITALS: BP 115/61
[2018-05-29 16:00] VITALS: BP 109/55
[2018-05-29 20:00] VITALS: BP 108/56
[2018-05-30] VITALS: BP 114/64
[2018-05-30 04:00] VITALS: BP 120/73
[2018-05-30 04:56] LABS: HEMATOCRIT 44.8 % (42.0-52.0); HEMOGLOBIN 13.4 g/dl (14.0-18.0); MEAN CELL VOLUME 94.7 fl (80.0-94.0); MEAN CORPUSCULAR HGB 28.3 pg (27.0-31.0); MEAN CORPUSCULAR HGB CONC 29.9 g/dl (33.0-37.0); MEAN PLATELET VOLUME 11.4 fl (9.6-12.3); NUCLEATED RED BLOOD CELL 0.2 % (0.0-0.0); PLATELET COUNT AUTOMATED 241 10*3/uL (130-400); RED BLOOD COUNT 4.73 10*6/uL (4.50-5.90); RED CELL DISTRI WIDTH 14.2 % (0-14.5); WHITE BLOOD COUNT 18.2 10*3/uL (4.8-10.8)
[2018-05-30 05:19] LABS: ALBUMIN 2.7 gm/dl (3.1-4.5); BUN 45 mg/dl (7-24); CHLORIDE 107 mmol/L (98-107); CREATININE 0.91 mg/dL (0.70-1.30); PHOSPHOROUS 2.8 mg/dL (2.5-4.9); POTASSIUM 4.9 mmol/L (3.5-5.1); SGOT/AST 24 IU/L (3-35); SGPT/ALT 54 U/L (12-78); SODIUM 143 mmol/L (136-145)
[2018-05-30 05:20] LABS: ALKALINE PHOSPHATASE 68 U/L (45-117); TOTAL PROTEIN 6.4 gm/dL (6.4-8.2)
[2018-05-30 06:16] LABS: ATYPICAL LYMPHS 2 % (0-0); PLATELET SUFFICIENCY NORMAL (NORMAL); TOTAL CELLS COUNTED 100 #CELLS
[2018-05-30 08:00] VITALS: BP 129/73
[2018-05-30 08:04] LABS: ABG BASE EXCESS 4.8 mmol/L (-2.0-2.0); ABG HCO3 31.9 mmol/l (22-26); ABG O2 SATURATION 94.9 % (95-97); ARTERIAL BLOOD GAS PCO2 59.1 mmHg (35-45); ARTERIAL BLOOD GAS PH 7.349 (7.35-7.45)
[2018-05-30 12:00] VITALS: BP 107/66
[2018-05-30 16:00] VITALS: BP 113/75
[2018-05-30 20:00] VITALS: BP 127/69
[2018-05-31] VITALS: BP 125/65
[2018-05-31 08:00] VITALS: BP 132/72
[2018-05-31 11:56] LABS: ABG HCO3 32.3 mmol/l (22-26); ABG O2 SATURATION 95.4 % (95-97); ARTERIAL BLOOD GAS PCO2 54.8 mmHg (35-45); ARTERIAL BLOOD GAS PH 7.386 (7.35-7.45)
[2018-05-31 12:00] VITALS: BP 116/59
[2018-05-31 16:00] VITALS: BP 117/53
[2018-05-31 20:00] VITALS: BP 113/67
[2018-06-01] VITALS: BP 97/43
[2018-06-01 06:48] LABS: BUN 36 mg/dl (7-24); CHLORIDE 105 mmol/L (98-107); CREATININE 0.83 mg/dL (0.70-1.30); POTASSIUM 5.4 mmol/L (3.5-5.1); SODIUM 141 mmol/L (136-145)
[2018-06-01 07:47] VITALS: BP 119/56
[2018-06-01 07:54] LABS: HEMATOCRIT 46.4 % (42.0-52.0); HEMOGLOBIN 14.7 g/dl (14.0-18.0); MEAN CELL VOLUME 91.9 fl (80.0-94.0); MEAN CORPUSCULAR HGB 29.1 pg (27.0-31.0); MEAN CORPUSCULAR HGB CONC 31.7 g/dl (33.0-37.0); MEAN PLATELET VOLUME 11.7 fl (9.6-12.3); PLATELET COUNT AUTOMATED 260 10*3/uL (130-400); RED BLOOD COUNT 5.05 10*6/uL (4.50-5.90); RED CELL DISTRI WIDTH 13.9 % (0-14.5); WHITE BLOOD COUNT 25.2 10*3/uL (4.8-10.8)
[2018-06-01 08:28] LABS: TOTAL CELLS COUNTED 100 #CELLS
[2018-06-01 08:29] LABS: PLATELET SUFFICIENCY NORMAL (NORMAL)
[2018-06-01 08:37] VITALS: BP 104/52
[2018-06-01 11:45] VITALS: BP 99/61
[2018-06-01 16:00] VITALS: BP 103/52
[2018-06-01 20:00] VITALS: BP 107/67
[2018-06-02] VITALS: BP 106/50
[2018-06-02 06:46] LABS: HEMATOCRIT 43.3 % (42.0-52.0); HEMOGLOBIN 13.8 g/dl (14.0-18.0); MEAN CORPUSCULAR HGB CONC 31.9 g/dl (33.0-37.0); MEAN PLATELET VOLUME 10.8 fl (9.6-12.3); PLATELET COUNT AUTOMATED 260 10*3/uL (130-400); RED BLOOD COUNT 4.76 10*6/uL (4.50-5.90); RED CELL DISTRI WIDTH 13.8 % (0-14.5); WHITE BLOOD COUNT 22.5 10*3/uL (4.8-10.8)
[2018-06-02 07:00] LABS: BUN 30 mg/dl (7-24); CHLORIDE 104 mmol/L (98-107); CREATININE 0.83 mg/dL (0.70-1.30); POTASSIUM 4.7 mmol/L (3.5-5.1); SODIUM 142 mmol/L (136-145)
[2018-06-02 07:49] LABS: ATYPICAL LYMPHS 1 % (0-0); PLATELET SUFFICIENCY NORMAL (NORMAL); TOTAL CELLS COUNTED 100 #CELLS
[2018-06-02] MEDS ORDERED: PREDNISONE10 MG PO (12:06)
[2018-07-07 10:08] LABS: ACID FAST CULTURE Negative (.)
== END 2018-06-02 13:10 | disposition home or self-care (01) | DRG 871 ==
LOC: ED 10:08 → ICCU 11:04 → EDHOLD 11:04 → ICCU 11:12 → 5E 05-30 10:33
PROVIDERS: Emergency Medicine; Internal Medicine; Internal Medicine Critical Care Medicine; ADMIT Internal Medicine
PROC: 5A1945Z Respiratory Ventilation, 24-96 Consecutive Hours (ICD-10-PCS; principal; 2018-05-24)
PROC: 0BH17EZ Insertion of Endotracheal Airway into Trachea, Via Natural or Artificial Opening (ICD-10-PCS; principal; 2018-05-24)
PROC: 02HV33Z Insertion of Infusion Device into Superior Vena Cava, Percutaneous Approach (ICD-10-PCS; principal; 2018-05-24)
PROC: B548ZZA Ultrasonography of Superior Vena Cava, Guidance (ICD-10-PCS; principal; 2018-05-24)
PROC: 0BC38ZZ Extirpation of Matter from Right Main Bronchus, Via Natural or Artificial Opening Endoscopic (ICD-10-PCS; 2018-05-27)
PROC: 0BC88ZZ Extirpation of Matter from Left Upper Lobe Bronchus, Via Natural or Artificial Opening Endoscopic (ICD-10-PCS; 2018-05-27)
PROC: 0BC98ZZ Extirpation of Matter from Lingula Bronchus, Via Natural or Artificial Opening Endoscopic (ICD-10-PCS; 2018-05-27)
PROC: 0BC68ZZ Extirpation of Matter from Right Lower Lobe Bronchus, Via Natural or Artificial Opening Endoscopic (ICD-10-PCS; 2018-05-27)
PROC: 0BC48ZZ Extirpation of Matter from Right Upper Lobe Bronchus, Via Natural or Artificial Opening Endoscopic (ICD-10-PCS; 2018-05-27)
PROC: 0BC78ZZ Extirpation of Matter from Left Main Bronchus, Via Natural or Artificial Opening Endoscopic (ICD-10-PCS; 2018-05-27)
PROC: 0BC58ZZ Extirpation of Matter from Right Middle Lobe Bronchus, Via Natural or Artificial Opening Endoscopic (ICD-10-PCS; 2018-05-27)
PROC: 0BCB8ZZ Extirpation of Matter from Left Lower Lobe Bronchus, Via Natural or Artificial Opening Endoscopic (ICD-10-PCS; 2018-05-27)
PROC: 5A09357 Assistance with Respiratory Ventilation, Less than 24 Consecutive Hours, Continuous Positive Airway Pressure (ICD-10-PCS; 2018-05-27)
PROC: 0BC18ZZ Extirpation of Matter from Trachea, Via Natural or Artificial Opening Endoscopic (ICD-10-PCS; 2018-05-27)
PROC: 5A09357 Assistance with Respiratory Ventilation, Less than 24 Consecutive Hours, Continuous Positive Airway Pressure (ICD-10-PCS; 2018-05-28)
PROC: 5A09357 Assistance with Respiratory Ventilation, Less than 24 Consecutive Hours, Continuous Positive Airway Pressure (ICD-10-PCS; 2018-05-29)
PROC: 5A09357 Assistance with Respiratory Ventilation, Less than 24 Consecutive Hours, Continuous Positive Airway Pressure (ICD-10-PCS; 2018-05-30)
PROC: 5A09357 Assistance with Respiratory Ventilation, Less than 24 Consecutive Hours, Continuous Positive Airway Pressure (ICD-10-PCS; 2018-05-31)
DX: A41.9 Sepsis, unspecified organism (principal); R65.21 Severe sepsis with septic shock; N17.0 Acute kidney failure with tubular necrosis; J96.01 Acute respiratory failure with hypoxia; J96.02 Acute respiratory failure with hypercapnia; E43 Unspecified severe protein-calorie malnutrition; J10.00 Influenza due to other identified influenza virus with unspecified type of pneumonia; J44.1 Chronic obstructive pulmonary disease with (acute) exacerbation; J44.0 Chronic obstructive pulmonary disease with (acute) lower respiratory infection; J98.11 Atelectasis; I42.0 Dilated cardiomyopathy; E87.3 Alkalosis; I50.22 Chronic systolic (congestive) heart failure; I08.3 Combined rheumatic disorders of mitral, aortic and tricuspid valves; J20.9 Acute bronchitis, unspecified; I48.2 Chronic atrial fibrillation; I27.20 Pulmonary hypertension, unspecified; E87.5 Hyperkalemia; E86.0 Dehydration; K21.9 Gastro-esophageal reflux disease without esophagitis; E11.65 Type 2 diabetes mellitus with hyperglycemia; E83.39 Other disorders of phosphorus metabolism; E83.41 Hypermagnesemia; I25.10 Atherosclerotic heart disease of native coronary artery without angina pectoris; I48.0 Paroxysmal atrial fibrillation; E78.5 Hyperlipidemia, unspecified; K80.20 Calculus of gallbladder without cholecystitis without obstruction; T38.0X5A Adverse effect of glucocorticoids and synthetic analogues, initial encounter; Y92.89 Other specified places as the place of occurrence of the external cause; Z95.0 Presence of cardiac pacemaker; I25.2 Old myocardial infarction; Z87.891 Personal history of nicotine dependence; Z80.3 Family history of malignant neoplasm of breast; Z80.0 Family history of malignant neoplasm of digestive organs; Z79.82 Long term (current) use of aspirin; Z79.899 Other long term (current) drug therapy; Z79.01 Long term (current) use of anticoagulants; Z95.1 Presence of aortocoronary bypass graft; Z68.25 Body mass index [BMI] 25.0-25.9, adult

== ENCOUNTER → 2018-07-07 | Outpatient (CLI) | payer MEDICARE ==
[~2018-07-07] MED LIST changes: +ADV 500/50 INH; +PREDNISONE10 MG PO; +PROAIR HFA8.5 GM INH; +TOPROL XL200 MG PO; +VIRTUSSIN AC L118 ML PO
[2018-07-07 09:52] LABS: BASO # 0.1 10*3/uL (0.0-0.1); EOS # 0.2 10*3/uL (0.0-0.4); EOS % 1.8 % (1.0-4.0); HEMATOCRIT 44.9 % (42.0-52.0); LYMPH # 2.3 10*3/uL (1.3-4.4); LYMPH % 23.9 % (27.0-41.0); MEAN CELL VOLUME 92.6 fl (80.0-94.0); MEAN CORPUSCULAR HGB 28.9 pg (27.0-31.0); MEAN CORPUSCULAR HGB CONC 31.2 g/dl (33.0-37.0); MEAN PLATELET VOLUME 11.3 fl (9.6-12.3); MONO # 1.3 10*3/uL (0.1-1.0); MONO % 13.4 % (3.0-9.0); NEUT # 5.5 10*3/uL (2.3-7.9); NEUT % 58.5 % (47.0-73.0); PLATELET COUNT AUTOMATED 339 10*3/uL (130-400); RED BLOOD COUNT 4.85 10*6/uL (4.50-5.90); RED CELL DISTRI WIDTH 14.2 % (0-14.5); WHITE BLOOD COUNT 9.4 10*3/uL (4.8-10.8)
[2018-07-07 10:27] LABS: ALBUMIN 3.4 gm/dl (3.1-4.5); ALKALINE PHOSPHATASE 109 U/L (45-117); BILIRUBIN, DIRECT 0.1 mg/dL (0.0-0.2); BUN 27 mg/dl (7-24); CHLORIDE 104 mmol/L (98-107); CREATININE 1.13 mg/dL (0.70-1.30); POTASSIUM 4.4 mmol/L (3.5-5.1); SGOT/AST 12 IU/L (3-35); SODIUM 141 mmol/L (136-145); TOTAL PROTEIN 7.7 gm/dL (6.4-8.2)
[2018-07-07 10:30] LABS: SGPT/ALT 18 U/L (12-78)
== END | disposition home or self-care (01) ==
LOC: LAB 09:23
PROVIDERS: Family Medicine
DX: R73.9 Hyperglycemia, unspecified (principal)

== ENCOUNTER → 2018-10-21 | Outpatient (CLI) | payer MEDICARE ==
[2018-10-21 09:53] LABS: BASO # 0.1 10*3/uL (0.0-0.1); EOS # 0.3 10*3/uL (0.0-0.4); EOS % 3.6 % (1.0-4.0); HEMATOCRIT 48.1 % (42.0-52.0); HEMOGLOBIN 14.9 g/dl (14.0-18.0); LYMPH % 22.1 % (27.0-41.0); MEAN CELL VOLUME 92.3 fl (80.0-94.0); MEAN CORPUSCULAR HGB 28.6 pg (27.0-31.0); MEAN PLATELET VOLUME 11.8 fl (9.6-12.3); MONO # 1.2 10*3/uL (0.1-1.0); MONO % 12.7 % (3.0-9.0); NEUT # 5.5 10*3/uL (2.3-7.9); NEUT % 60.2 % (47.0-73.0); PLATELET COUNT AUTOMATED 223 10*3/uL (130-400); RED BLOOD COUNT 5.21 10*6/uL (4.50-5.90); RED CELL DISTRI WIDTH 14.8 % (0-14.5); WHITE BLOOD COUNT 9.1 10*3/uL (4.8-10.8)
[2018-10-21 10:10] LABS: ALBUMIN 3.9 gm/dl (3.1-4.5); ALKALINE PHOSPHATASE 89 U/L (45-117); BILIRUBIN, DIRECT 0.2 mg/dL (0.0-0.2); BUN 22 mg/dl (7-24); CHLORIDE 106 mmol/L (98-107); CREATININE 1.19 mg/dL (0.70-1.30); POTASSIUM 4.6 mmol/L (3.5-5.1); SGOT/AST 16 IU/L (3-35); SGPT/ALT 20 U/L (12-78); SODIUM 142 mmol/L (136-145); TOTAL PROTEIN 7.6 gm/dL (6.4-8.2)
== END | disposition home or self-care (01) ==
LOC: LAB 09:37
PROVIDERS: Family Medicine
DX: E11.9 Type 2 diabetes mellitus without complications (principal)

== ENCOUNTER → 2019-02-07 | Outpatient (CLI) | payer MEDICARE ==
[2019-02-07 11:35] LABS: BASO # 0.1 10*3/uL (0.0-0.1); EOS # 0.4 10*3/uL (0.0-0.4); HEMATOCRIT 53.9 % (42.0-52.0); HEMOGLOBIN 16.9 g/dl (14.0-18.0); LYMPH # 2.4 10*3/uL (1.3-4.4); LYMPH % 24.3 % (27.0-41.0); MEAN CELL VOLUME 90.1 fl (80.0-94.0); MEAN CORPUSCULAR HGB 28.3 pg (27.0-31.0); MEAN CORPUSCULAR HGB CONC 31.4 g/dl (33.0-37.0); MEAN PLATELET VOLUME 11.9 fl (9.6-12.3); MONO # 1.1 10*3/uL (0.1-1.0); MONO % 10.9 % (3.0-9.0); NEUT # 5.8 10*3/uL (2.3-7.9); NEUT % 59.3 % (47.0-73.0); PLATELET COUNT AUTOMATED 235 10*3/uL (130-400); RED BLOOD COUNT 5.98 10*6/uL (4.50-5.90); RED CELL DISTRI WIDTH 15.3 % (0-14.5); WHITE BLOOD COUNT 9.8 10*3/uL (4.8-10.8)
[2019-02-07 12:01] LABS: BILIRUBIN, DIRECT 0.3 mg/dL (0.0-0.2); BUN 21 mg/dl (7-24); CHLORIDE 105 mmol/L (98-107); CHOLESTEROL 156 mg/dL (<200); CREATININE 1.25 mg/dL (0.70-1.30); HDL CHOLESTEROL 42 mg/dl (40-60); LDL CHOLESTEROL 94 mg/dL (9-159); SGOT/AST 11 IU/L (3-35); SGPT/ALT 21 U/L (12-78); SODIUM 140 mmol/L (136-145); THYROXINE (T4) TOTAL 11.4 ug/dl (4.5-12.1); TOTAL PROTEIN 8.3 gm/dL (6.4-8.2); TRIGLYCERIDES 99 mg/dl (<150); VLDL CHOLESTEROL 20 mg/dL (6-40)
[2019-02-07 12:07] LABS: ALKALINE PHOSPHATASE 91 U/L (45-117)
== END | disposition home or self-care (01) ==
LOC: LAB 10:58
PROVIDERS: Family Medicine
DX: Z12.5 Encounter for screening for malignant neoplasm of prostate (principal); I48.91 Unspecified atrial fibrillation; E11.9 Type 2 diabetes mellitus without complications; E78.5 Hyperlipidemia, unspecified; R63.4 Abnormal weight loss; R35.1 Nocturia; R06.02 Shortness of breath

== ENCOUNTER 2019-04-25 08:19 | Inpatient (IN) | payer MEDICARE ==
[~2019-04-25] VITALS: Ht 185.4 cm; Wt 62.7 kg
[2019-04-25] VITALS (35 sets, daily range): BP systolic 82–154; BP diastolic 32–78
--- NOTE | 2019-04-25 08:30 | NUR ---
PATIENT PLACED ON BI-PAP 07/12, BACK UP RATE OF 8, FIO2 60%, PULSE OX 95%.
[2019-04-25 08:36] LABS: ABG BASE EXCESS -3.4 mmol/L (-2.0-2.0)
[2019-04-25 08:42] LABS: ARTERIAL BLOOD GAS PH 7.147 (7.35-7.45)
--- NOTE | 2019-04-25 08:47 | NUR ---
PT AWAKE, FAMILY AT THE BEDSIDE, BI-PAP REMAINS, POX 98% 14/8 60%, FIO2 DECREASED TO 40% .
[2019-04-25 08:48] LABS: HEMATOCRIT 53.5 % (42.0-52.0); HEMOGLOBIN 16.2 g/dl (14.0-18.0); MEAN CELL VOLUME 93.9 fl (80.0-94.0); MEAN CORPUSCULAR HGB 28.4 pg (27.0-31.0); MEAN CORPUSCULAR HGB CONC 30.3 g/dl (33.0-37.0); MEAN PLATELET VOLUME 11.9 fl (9.6-12.3); PLATELET COUNT AUTOMATED 272 10*3/uL (130-400); RED CELL DISTRI WIDTH 14.3 % (0-14.5); WHITE BLOOD COUNT 18.2 10*3/uL (4.8-10.8)
[2019-04-25 09:02] LABS: TOTAL CELLS COUNTED 100 #CELLS
[2019-04-25 09:03] LABS: PLATELET SUFFICIENCY NORMAL (NORMAL)
[2019-04-25 09:06] LABS: CREATININE 1.48 mg/dL (0.70-1.30); POTASSIUM 5.2 mmol/L (3.5-5.1); TOTAL PROTEIN 8.8 gm/dL (6.4-8.2)
--- NOTE | 2019-04-25 10:15 | NUR ---
RESTING QUIETLY ON BI-PAP, POX 95%. WILL CONTINUE TO MONITOR.
--- NOTE | 2019-04-25 12:10 | NUR ---
A 73, admitted to ICCU, under the services of GABRIELA Anderson DO with a diagnosis of RESPIRATORY FAILURE. Chief complaint is SHORTNESS OF BREATH. Patient arrived via stretcher from ER. Monitor applied. Initial assessment completed. Vital signs taken and recorded. GABRIELA ANDERSON DO notified of admission to the unit. Orders received. See assessment for past medical history, medications and allergies. Patient and/or family oriented to unit. [facility]U visitation policy reviewed. Clothing/patient valuable form completed. MELISSA PEREZ
--- NOTE | 2019-04-25 12:33 | NUR ---
DR MENDOZA HERE, STATES TO INTUBATE PATIENT
[2019-04-25 12:41] LABS: ABG BASE EXCESS -1.6 mmol/L (-2.0-2.0)
--- NOTE | 2019-04-25 12:45 | NUR ---
Patient intubated with #7.5 endotracheal tube X 1 attempts. Patient sedated with 10ML DIPROVAN Respiratory therapy at bedside. Crash cart with emergency drugs available. Endotracheal tube inflated with 10 cc's. Lungs auscultated for equality of breath sounds. Tube secured with TUBE NOLASCO at 24cm's. Patient tolerated procedure . Portable chest X-ray obtained and reviewed for tube placement. TOM ESTEVES
[2019-04-25 12:52] LABS: ARTERIAL BLOOD GAS PH 7.131 (7.35-7.45)
--- NOTE | 2019-04-25 12:55 | NUR ---
16F NG tube inserted and secured without difficulty . Patient tolerated procedure well. Connected to LOW intermittent suction TOM ESTEVES
--- NOTE | 2019-04-25 13:33 | NUR ---
ANTON FLORES PLACED AT THE BEDSIDE BY DR ARBOLEDA.
--- NOTE | 2019-04-25 14:44 | NUR ---
VERSED GIVEN AT THIS TIME D/T CONTINUED AGITATION. RN WILL CONTINUE TO MONITOR
[2019-04-25 15:22] LABS: ABG BASE EXCESS -2.2 mmol/L (-2.0-2.0); ARTERIAL BLOOD GAS PH 7.208 (7.35-7.45)
[2019-04-25] MEDS ORDERED: METFORMIN HYDR500 MG PO (15:24)
[2019-04-25] MEDS ORDERED: TRELEGY ELLIPT1 EACH INH (15:25)
[2019-04-25 15:31] LABS: BILIRUBIN 1+ (NEGATIVE); BLOOD NEGATIVE (NEGATIVE); CLARITY SL CLOUDY (CLEAR); COLOR YELLOW (YELLOW); GLUCOSE NEGATIVE (NEGATIVE); KETONE NEGATIVE (NEGATIVE); LEUKO ESTERASE NEGATIVE (NEGATIVE); NITRITE NEGATIVE (NEGATIVE); PH 5.5 (5.0-9.0); SPECIFIC GRAVITY >= 1.030 (1.005-1.030)
--- NOTE | 2019-04-25 15:41 | NUR ---
DR CALDERON CALLED DR REJI SHARPE LEVAPHED AT 20MG AND WITH ABG RESULTS
--- NOTE | 2019-04-25 15:44 | NUR ---
MEDS RECONCILED WITH LIST FROM
[2019-04-25 15:49] LABS: WBC 0-2 wbc/hpf (0-5)
--- NOTE | 2019-04-25 15:55 | NUR ---
DR BURGOS UPDATED THAT LEVAPHED IS NOW AT 20 MCG
--- NOTE | 2019-04-25 16:00 | NUR ---
INTUBATED AND SEDATED, MOVES HEAD AT TIME, PULLS AT RESTRAINTS GENTLY, DOES NOT FOLLOW COMMANDS, NO SEDATION VACATION AT THIS TIME, LEVYANETED CARYL-HUMBERTO DOMINGUEZ AT 50, KARLA GAONA DRAINING REDDINH BROWN REFLUX WITH BLOOD CLOTS, FAMILY UPDATED
[2019-04-25 18:07] LABS: ABG BASE EXCESS 0.1 mmol/L (-2.0-2.0); ARTERIAL BLOOD GAS PH 7.306 (7.35-7.45)
--- NOTE | 2019-04-25 18:53 | NUR ---
DR MENDOZA CALLED WITH REPEAT ABGS
[2019-04-25 21:04] LABS: HEMATOCRIT 43.5 % (42.0-52.0); HEMOGLOBIN 13.5 g/dl (14.0-18.0); MEAN CELL VOLUME 94.4 fl (80.0-94.0); MEAN CORPUSCULAR HGB 29.3 pg (27.0-31.0); MEAN PLATELET VOLUME 11.9 fl (9.6-12.3); PLATELET COUNT AUTOMATED 208 10*3/uL (130-400); RED BLOOD COUNT 4.61 10*6/uL (4.50-5.90); RED CELL DISTRI WIDTH 14.3 % (0-14.5); WHITE BLOOD COUNT 16.6 10*3/uL (4.8-10.8)
[2019-04-25 21:16] LABS: CREATININE 1.69 mg/dL (0.70-1.30); POTASSIUM 4.3 mmol/L (3.5-5.1)
[2019-04-25 21:26] LABS: TOTAL CELLS COUNTED 100 #CELLS
[2019-04-25 21:27] LABS: PLATELET SUFFICIENCY NORMAL (NORMAL)
--- NOTE | 2019-04-25 22:38 | NUR ---
DR ELIZALDE NOTIFIED OF H&H 13.5 & 43.5. NEW ORDER TO CONSULT DR ARORA.
--- NOTE | 2019-04-25 22:40 | NUR ---
DR ARORA CALLED AND NO ANSWER. MESSAGE LEFT ON VOICE MAIL TO PLEASE RETURN CALL.
--- NOTE | 2019-04-25 22:45 | NUR ---
DR ARORA CALLED BACK AND ORDER GIVEN FOR PROTONIX 40MG IV BID.
[2019-04-26] VITALS (96 sets, daily range): BP systolic 11–156; BP diastolic 38–68
[2019-04-26 06:08] LABS: BASO # 0.1 10*3/uL (0.0-0.1); BASO % 0.3 % (0.0-1.0); EOS # 0.1 10*3/uL (0.0-0.4); EOS % 0.3 % (1.0-4.0); HEMATOCRIT 44.3 % (42.0-52.0); HEMOGLOBIN 13.8 g/dl (14.0-18.0); LYMPH # 0.6 10*3/uL (1.3-4.4); LYMPH % 3.4 % (27.0-41.0); MEAN CELL VOLUME 92.7 fl (80.0-94.0); MEAN CORPUSCULAR HGB 28.9 pg (27.0-31.0); MEAN CORPUSCULAR HGB CONC 31.2 g/dl (33.0-37.0); MEAN PLATELET VOLUME 12.3 fl (9.6-12.3); MONO # 1.1 10*3/uL (0.1-1.0); MONO % 6.4 % (3.0-9.0); NEUT # 15.7 10*3/uL (2.3-7.9); NEUT % 88.9 % (47.0-73.0); PLATELET COUNT AUTOMATED 216 10*3/uL (130-400); RED BLOOD COUNT 4.78 10*6/uL (4.50-5.90); RED CELL DISTRI WIDTH 14.4 % (0-14.5); WHITE BLOOD COUNT 17.6 10*3/uL (4.8-10.8)
[2019-04-26 06:11] LABS: ALBUMIN 3.1 gm/dl (3.1-4.5); CREATININE 1.49 mg/dL (0.70-1.30); PHOSPHOROUS 2.8 mg/dL (2.5-4.9); POTASSIUM 3.9 mmol/L (3.5-5.1); TOTAL PROTEIN 6.7 gm/dL (6.4-8.2)
[2019-04-26 06:20] LABS: ACT PARTIAL THROMBO TIME 29.9 SECONDS (20.0-32.1)
--- NOTE | 2019-04-26 06:50 | NUR ---
PATIENT GIVEN VERSED AT THIS TIME FOR RESTLESSNESS AND AGITATION. PATIENT SHORTLY AFTER BECOMES TACHYCARDIC AND CONTINUES TO BE RESTLESS AND PULSE OX BEGINS TO DECLINE TO 80'S ON PULSE OX. PATIENT TAKEN OFF VENT AND MANUALLY BAGGED TO IMPROVED PULSE OX. VENT HME SWITCH AND CORRECTED VENT ISSUE. PATIENT RETURNED ONTO VENTILATOR AT THIS TIME. LEVOPHED INCREASED TO 20 MCG.
--- NOTE | 2019-04-26 07:20 | NUR ---
RESIDENT NOTIFIED OF LOW BP MAP 50-55, DR PALMA CALLED IN AND KYARA SABILLON STARTED
[2019-04-26 07:26] LABS: ARTERIAL BLOOD GAS PH 7.229 (7.35-7.45)
[2019-04-26 07:28] LABS: ABG BASE EXCESS -11.9 mmol/L (-2.0-2.0)
--- NOTE | 2019-04-26 08:16 | NUR ---
DR MENDOZA CALLED ON RESULTS FOR PT. FIO2 DECREASED TO 25%. PTS PO2 IS 117. RN AWARE OF CHANGES
--- NOTE | 2019-04-26 09:03 | NUR ---
PER RESIDENT-DO NOT START VASOPRESSIN DRIP
--- NOTE | 2019-04-26 11:00 | NUR ---
PT BP STABLE ON LEVAPHED AND KYARA DRIPS, FREQ ORAL AND ETT SUCTIONING, OGT DRAINING REDDISH BROWN REFLUX, BUT OK TO START FEEDINGS PER REJI-WHO ALSO SPOKE WITH FAMILY
--- NOTE | 2019-04-26 12:54 | NUR ---
DR NEW IN TO SEE PT, OK GIVEN TO START TUBE FEEDS
--- NOTE | 2019-04-26 17:30 | NUR ---
PT BECAME ANXIOUS WITH INCREASED RESP RATE AND MOVING AND PULLING-VERSED GIVEN WITH RESULTING DROP IN BP AND LEVAPHED AND KYARA DRIPS TITRATED ACCORDINGLY
--- NOTE | 2019-04-26 18:26 | NUR ---
LEVAPHED AT 15 AND KYARA AT 50 MCG CURRENTLY WOITH MAP >65
--- NOTE | 2019-04-26 21:22 | NUR ---
2200 DOSE OF ROCEPHIN NOT FOUND ON UNIT, NEW DOSE IS NOT AVAILABLE FROM PHARMACY. MEDICATION WILL NOT BE ABLE TO BE GIVEN.
--- NOTE | 2019-04-26 22:05 | NUR ---
2200 ROCEPHIN WAS LOCATED, WAS MIXED UP WITH ANOTHER PATIENT AND ALSO OUT OF THE REFRIGERATOR. MEDICATION WAS WARM TO TOUCH. MEDICATION DISCARDED.
--- NOTE | 2019-04-26 23:11 | NUR ---
Shift chart check completed.24 HR chart check completed.
[2019-04-27] VITALS (96 sets, daily range): BP systolic 93–155; BP diastolic 42–65
--- NOTE | 2019-04-27 02:35 | NUR ---
PATIENT BATHED AT THIS TIME, TOLERATED WELL. PATIENT ABLE TO OPEN EYES BUT DOES NOT FOLLOW COMMANDS. ONCE BATH COMPLETED, TUBE FEED CONTINUED PER DRS ORDERS. IV KYARA,LEVOPHED AND DIPROVAN CONTINUE DR ORDERED. WITHIN SIGHT ON RN
[2019-04-27 04:37] LABS: HEMATOCRIT 44.9 % (42.0-52.0); HEMOGLOBIN 14.1 g/dl (14.0-18.0); MEAN CELL VOLUME 91.6 fl (80.0-94.0); MEAN CORPUSCULAR HGB 28.8 pg (27.0-31.0); MEAN CORPUSCULAR HGB CONC 31.4 g/dl (33.0-37.0); MEAN PLATELET VOLUME 11.9 fl (9.6-12.3); PLATELET COUNT AUTOMATED 209 10*3/uL (130-400); RED CELL DISTRI WIDTH 14.6 % (0-14.5); WHITE BLOOD COUNT 22.5 10*3/uL (4.8-10.8)
[2019-04-27 04:55] LABS: ALBUMIN 3.1 gm/dl (3.1-4.5); ALKALINE PHOSPHATASE 117 U/L (45-117); CHLORIDE 113 mmol/L (98-107); CREATININE 1.12 mg/dL (0.70-1.30); PHOSPHOROUS 1.4 mg/dL (2.5-4.9); POTASSIUM 3.8 mmol/L (3.5-5.1); SGOT/AST 13 IU/L (3-35); SGPT/ALT 25 U/L (12-78); SODIUM 144 mmol/L (136-145); TOTAL PROTEIN 6.8 gm/dL (6.4-8.2)
[2019-04-27 04:59] LABS: BUN 23 mg/dl (7-24)
--- NOTE | 2019-04-27 05:11 | NUR ---
Respirations easy and regular. Vital signs stable. No overt distress on25% oxygen via ventilator. iv neosynephrine, iv levophed and iv diprovan continue. TOM ESTEVES
[2019-04-27 05:13] LABS: TOTAL CELLS COUNTED 100 #CELLS
[2019-04-27 05:14] LABS: PLATELET SUFFICIENCY NORMAL (NORMAL); POLYCHROMASIA SLIGHT
--- NOTE | 2019-04-27 07:03 | NUR ---
abgs drawn at this time via right radial artery.
[2019-04-27 07:11] LABS: ARTERIAL BLOOD GAS PH 7.304 (7.35-7.45)
--- NOTE | 2019-04-27 09:30 | NUR ---
sedation restared, pt had fully awakened following commands, anxious, resp rate 36-42, pt was unable to calm self
--- NOTE | 2019-04-27 12:45 | NUR ---
UNABLE TO TALK WITH PT, PT IS CURRENTLY ON A VENT.
[2019-04-28] VITALS (89 sets, daily range): BP systolic 90–153; BP diastolic 46–61
--- NOTE | 2019-04-28 | NUR ---
PATIENT RESTING ON VENT, NO SIGNS OF DISTRESS. LEVOPHED TITRATED.
[2019-04-28 05:38] LABS: ALBUMIN 2.8 gm/dl (3.1-4.5); ALKALINE PHOSPHATASE 103 U/L (45-117); BUN 22 mg/dl (7-24); CHLORIDE 112 mmol/L (98-107); CREATININE 1.08 mg/dL (0.70-1.30); PHOSPHOROUS 2.3 mg/dL (2.5-4.9); POTASSIUM 4.6 mmol/L (3.5-5.1); SGOT/AST 18 IU/L (3-35); SGPT/ALT 28 U/L (12-78); SODIUM 147 mmol/L (136-145); TOTAL PROTEIN 6.5 gm/dL (6.4-8.2)
[2019-04-28 05:57] LABS: HEMATOCRIT 42.9 % (42.0-52.0); HEMOGLOBIN 13.3 g/dl (14.0-18.0); MEAN CELL VOLUME 92.3 fl (80.0-94.0); MEAN CORPUSCULAR HGB 28.6 pg (27.0-31.0); MEAN PLATELET VOLUME 11.9 fl (9.6-12.3); PLATELET COUNT AUTOMATED 202 10*3/uL (130-400); RED BLOOD COUNT 4.65 10*6/uL (4.50-5.90); RED CELL DISTRI WIDTH 15.2 % (0-14.5); WHITE BLOOD COUNT 18.8 10*3/uL (4.8-10.8)
[2019-04-28 07:01] LABS: TOTAL CELLS COUNTED 100 #CELLS
[2019-04-28 07:02] LABS: PLATELET SUFFICIENCY NORMAL (NORMAL); POLYCHROMASIA SLIGHT; TOXIC GRANULATION SLIGHT
[2019-04-28 07:51] LABS: ABG BASE EXCESS 3.2 mmol/L (-2.0-2.0); ARTERIAL BLOOD GAS PH 7.378 (7.35-7.45)
--- NOTE | 2019-04-28 10:00 | NUR ---
LEVOPHED GTT TITRATED OFF
--- NOTE | 2019-04-28 10:30 | NUR ---
TAKEN DOWN TO OR FOR BRONCH
--- NOTE | 2019-04-28 11:25 | NUR ---
DIPRIVAN GTT TURNED OFF. ONCE AWAKE WILL TRY C-PAP
--- NOTE | 2019-04-28 12:09 | NUR ---
EYES OPEN WHEN NAME IS CALLED. PLACED ON C-PAP 5/PS 10
--- NOTE | 2019-04-28 12:09 | NUR ---
PT. WAS PLACED ON CPAP ON 5 WITH PS OF 10, HEART RATE 102, SAT 91%. PT. DID NOT TOLERATE,PLACED ON PREVIOUS SETTING, PT WAS ON CPAP FOR [address] MENDOZA IS AWARE.
--- NOTE | 2019-04-28 12:13 | NUR ---
HEART RATE 110. PULSE OX 83%. DR. MENDOZA HERE AND PLACED BACK ON VENT
--- NOTE | 2019-04-28 13:17 | NUR ---
PT IS ON VENT. NO FAMILY PRESENT. WILL REVISIT.
--- NOTE | 2019-04-28 22:00 | NUR ---
KYARA TITRATED OFF.
--- NOTE | 2019-04-28 23:48 | NUR ---
24 HR chart check completed.
[2019-04-29] VITALS (7 sets, daily range): BP systolic 112–145; BP diastolic 50–62
[2019-04-29 05:27] LABS: HEMOGLOBIN 13.1 g/dl (14.0-18.0); MEAN CELL VOLUME 93.7 fl (80.0-94.0); MEAN CORPUSCULAR HGB 28.5 pg (27.0-31.0); MEAN CORPUSCULAR HGB CONC 30.5 g/dl (33.0-37.0); MEAN PLATELET VOLUME 11.3 fl (9.6-12.3); PLATELET COUNT AUTOMATED 191 10*3/uL (130-400); RED BLOOD COUNT 4.59 10*6/uL (4.50-5.90); RED CELL DISTRI WIDTH 15.4 % (0-14.5); WHITE BLOOD COUNT 14.6 10*3/uL (4.8-10.8)
[2019-04-29 05:45] LABS: ALBUMIN 2.7 gm/dl (3.1-4.5); BUN 31 mg/dl (7-24); CHLORIDE 109 mmol/L (98-107); CREATININE 0.94 mg/dL (0.70-1.30); PHOSPHOROUS 3.1 mg/dL (2.5-4.9); POTASSIUM 4.9 mmol/L (3.5-5.1); SGOT/AST 23 IU/L (3-35); SGPT/ALT 42 U/L (12-78); SODIUM 143 mmol/L (136-145)
[2019-04-29 05:47] LABS: ALKALINE PHOSPHATASE 109 U/L (45-117); TOTAL PROTEIN 6.6 gm/dL (6.4-8.2)
[2019-04-29 05:54] LABS: TOTAL CELLS COUNTED 100 #CELLS
[2019-04-29 05:55] LABS: BURR CELLS FEW
[2019-04-29 05:56] LABS: PLATELET SUFFICIENCY NORMAL (NORMAL)
[2019-04-29 08:18] LABS: ABG BASE EXCESS 4.2 mmol/L (-2.0-2.0); ARTERIAL BLOOD GAS PH 7.341 (7.35-7.45)
--- NOTE | 2019-04-29 11:00 | NUR ---
PT PLACED ON CPAP PS 10, PEEP [address] MENDOZA. PT TOLERATING WELL AT THIS TIME
[2019-04-29 13:23] LABS: ABG BASE EXCESS 2.5 mmol/L (-2.0-2.0); ARTERIAL BLOOD GAS PH 7.265 (7.35-7.45)
--- NOTE | 2019-04-29 13:44 | NUR ---
PT PLACED BACK ON AC PER DR MENDOZA,
[2019-04-29 16:04] LABS: ACID FAST SPEC PROCESSING Concentration (.)
[2019-04-30] VITALS (10 sets, daily range): BP systolic 106–147; BP diastolic 47–70
[2019-04-30 06:19] LABS: ALBUMIN 2.7 gm/dl (3.1-4.5); CHLORIDE 106 mmol/L (98-107); CREATININE 0.93 mg/dL (0.70-1.30); POTASSIUM 4.6 mmol/L (3.5-5.1); SGOT/AST 30 IU/L (3-35); SGPT/ALT 53 U/L (12-78); SODIUM 142 mmol/L (136-145); TOTAL PROTEIN 6.7 gm/dL (6.4-8.2)
[2019-04-30 06:21] LABS: ALKALINE PHOSPHATASE 107 U/L (45-117)
[2019-04-30 06:38] LABS: BUN 48 mg/dl (7-24)
[2019-04-30 07:27] LABS: ABG BASE EXCESS 7.7 mmol/L (-2.0-2.0); ARTERIAL BLOOD GAS PH 7.374 (7.35-7.45)
[2019-04-30 08:19] LABS: HEMATOCRIT 44.7 % (42.0-52.0); HEMOGLOBIN 13.6 g/dl (14.0-18.0); MEAN CELL VOLUME 94.3 fl (80.0-94.0); MEAN CORPUSCULAR HGB 28.7 pg (27.0-31.0); MEAN CORPUSCULAR HGB CONC 30.4 g/dl (33.0-37.0); MEAN PLATELET VOLUME 11.8 fl (9.6-12.3); NUCLEATED RED BLOOD CELL 0.2 % (0.0-0.0); PLATELET COUNT AUTOMATED 206 10*3/uL (130-400); RED BLOOD COUNT 4.74 10*6/uL (4.50-5.90); RED CELL DISTRI WIDTH 15.2 % (0-14.5); WHITE BLOOD COUNT 14.8 10*3/uL (4.8-10.8)
[2019-04-30 08:56] LABS: BASOPHILS 1 % (0-1); PLATELET SUFFICIENCY NORMAL (NORMAL); TOTAL CELLS COUNTED 100 #CELLS
--- NOTE | 2019-04-30 10:02 | NUR ---
PT PLACED ON CPAP PER DR MENDOZA
--- NOTE | 2019-04-30 11:09 | NUR ---
Shift chart check completed.
[2019-04-30 12:05] LABS: ABG BASE EXCESS 6.6 mmol/L (-2.0-2.0); ARTERIAL BLOOD GAS PH 7.35 (7.35-7.45)
--- NOTE | 2019-04-30 12:15 | NUR ---
DR MENDOZA NOTIFIED OF ABG RESULTS. NO NEW ORDERS.
--- NOTE | 2019-04-30 13:13 | NUR ---
PT WAS EXTUBATED TO BIPAP 18,8,40% PER DR MENDOZA
--- NOTE | 2019-04-30 13:17 | NUR ---
AT 1314 PT EXTUBATED AND PLACED ON BIPAP 18/10, FIO2-40%. RESTRAINTS REMOVED.
[2019-04-30 15:24] LABS: ARTERIAL BLOOD GAS PH 7.35 (7.35-7.45)
--- NOTE | 2019-04-30 15:44 | NUR ---
RESTING QUIETLY, REPOSITIONED FOR COMFORT.
--- NOTE | 2019-04-30 17:26 | NUR ---
TOOK PT'S BIPAP OFF, PT VERY LETHARGIC, WEAK COUGH EFFORT. SUCTIONED HIS MOUTH AND OROPHARYNX, POOR GAG EFFORT. PULSE OX DROPPED TO 87% ON NASAL CANNULA 4L. NOT COMFORTABLE ATTEMPTING ICE CHIPS AT THIS TIME. ORAL CARE GIVEN AND REPLACED ON BIPAP MASK. REPOSITIONED.
--- NOTE | 2019-04-30 22:00 | NUR ---
PT POX POGRESSIVELY GOING DOWN, ABG'S DRAWN AND DR MENDOZA NOTIFIED. NEW ORDER FOR LASIX 40MG IV X1 NOW. ALSO ORDERED THAT IF PT GETS WORSE TO REINTUBATE, ONLY IF PT GETS WORSE.
--- NOTE | 2019-04-30 22:08 | NUR ---
O2 INREASED TO 80% DUE TO LOW SPO2. SATS INCREASED TO 91%-92%. WILL CONTINUE TO MONITOR
[2019-04-30 22:15] LABS: ABG BASE EXCESS 7.4 mmol/L (-2.0-2.0); ARTERIAL BLOOD GAS PH 7.35 (7.35-7.45)
[2019-05-01 04:00] VITALS: BP 140/67
[2019-05-01 05:44] LABS: ALBUMIN 3.1 gm/dl (3.1-4.5); BUN 48 mg/dl (7-24); CHLORIDE 99 mmol/L (98-107); CREATININE 0.99 mg/dL (0.70-1.30); PHOSPHOROUS 3.9 mg/dL (2.5-4.9); POTASSIUM 4.5 mmol/L (3.5-5.1); SGOT/AST 37 IU/L (3-35); SGPT/ALT 64 U/L (12-78); SODIUM 141 mmol/L (136-145)
[2019-05-01 05:46] LABS: ALKALINE PHOSPHATASE 125 U/L (45-117); TOTAL PROTEIN 7.9 gm/dL (6.4-8.2)
[2019-05-01 05:59] LABS: HEMATOCRIT 48.1 % (42.0-52.0); HEMOGLOBIN 14.8 g/dl (14.0-18.0); MEAN CELL VOLUME 92.5 fl (80.0-94.0); MEAN CORPUSCULAR HGB 28.5 pg (27.0-31.0); MEAN CORPUSCULAR HGB CONC 30.8 g/dl (33.0-37.0); MEAN PLATELET VOLUME 11.4 fl (9.6-12.3); PLATELET COUNT AUTOMATED 229 10*3/uL (130-400); RED CELL DISTRI WIDTH 14.3 % (0-14.5); WHITE BLOOD COUNT 18.2 10*3/uL (4.8-10.8)
--- NOTE | 2019-05-01 07:08 | NUR ---
ASHA PALENCIA [id number] Please refer to the physician's history and physical for past medical history, comorbid conditions, and allergies. Diagnosis: RESPIRATORY FAILURE Rickye Score: 13,HIGH RISK WOUND DESCRIPTIONS: Wound Number: 1 Location of the wound: Right posterior arm Type of wound: skin tear Thickness: Partial Size: 1.7cm x 2.0cm x 0.1cm Tunneling: none Undermining: none Sinus Tract: none Presence of Exudate: Serosanguineous Amount: Light Color: Red Odor: None Periwound Skin Appearance: Normal Wound edges: approximated Pain (associated with wound): none at time of assessment How does patient state this happened? pt unable to state how this happened Wound Number: 2 Location of the wound: right anterior arm Type of wound: skin tear Thickness: Partial Size: 1.1cm x 0.3cm x 0.1cm Tunneling: none Undermining: none Sinus Tract: none Presence of Exudate: Serosanguineous Amount: Light Color: Red Odor: None Periwound Skin Appearance: Normal Wound edges: approximated Pain (associated with wound): none at time of assessment How does patient state this happened? pt unable to state how this happened Surface the patient is resting on: XPRT SKIN PREVENTION RECOMMENDATION: 1. Pressure redistribution support surface as appropriate 2. Elevate heels 3. Remove boots/TEDS every shift and reapply 4. Head of bed 30 degrees as tolerated 5. Assess nutrition and hydration 6. Manage moisture 7. Avoid the use of containment devices while in bed 8. Use absorptive products on surfaces limit layers of linens on bed 9. Turn and reposition every 1-2 hours in bed and every 1 hour in chair as tolerated 10. Weight shifts every 15 minutes while up in chair 11. Offloading with pillows or device to keep heels elevated off bed 12. Monitor skin at least every shift 13. Inspect under medical devices twice a day WOUND TREATMENT RECOMMENDATIONS: D/C skin tear guidelines: Skin tear guidelines: Cleanse right posterior arm, right anterior arm with nss and apply sureprep around the wound hydrogel versatel to wound bed cover with non-adhenent and lightly wrap with rolled gauze. Heel rasier pro boots to bilateral feet while bed.
--- NOTE | 2019-05-01 07:09 | NUR ---
Shift chart check completed.24 HR chart check completed.
[2019-05-01 07:23] LABS: PLATELET SUFFICIENCY NORMAL (NORMAL); TOTAL CELLS COUNTED 100 #CELLS
[2019-05-01 07:24] LABS: POLYCHROMASIA SLIGHT
[2019-05-01 08:00] VITALS: BP 110/60; BP 148/63
--- NOTE | 2019-05-01 08:11 | NUR ---
ON ASSESSMENT PATIENT IS MORE AWAKE THAN LAST EVENING. HE'S FOLLOWING COMMANDS, SQUEEZING MY HANDS ON COMMAND, WIGGLING HIS TOES. HE REMAINS ON BIPAP, 18/10, FIO2 65%. DR MENDOZA CALLED IN TO CHECK ON PT. ORDERED STAT CXR AND THIS HAS BEEN DONE. SEE ALL APPROPRIATE INTERVENTIONS. GAONA PATENT YELLOW URINE. ARTERIAL LINE INTACT RT RADIAL. MONITOR ZEROED.
[2019-05-01 09:28] LABS: ABG BASE EXCESS 8.7 mmol/L (-2.0-2.0); ARTERIAL BLOOD GAS PH 7.322 (7.35-7.45)
--- NOTE | 2019-05-01 09:32 | NUR ---
DR MENDOZA HAS VISITED. TALKED WITH PT'S . PT WAS TAKEN OFF BIPAP, PLACED ON NASAL CANNULA 6L/MIN. ORAL CARE WAS GIVEN. PT HAVING GASPING RESPIRATIONS. STAYED OFF BIPAP FOR 20 MINUTES, LONG ENOUGH TO PLACE A FEEDING TUBE IN HIS RT NARE. ABG'S WERE DONE FROM ARTERIAL LINE. REMAINS AT BEDSIDE.
--- NOTE | 2019-05-01 10:34 | NUR ---
Dr. Loera notified of wound care recommendations.
--- NOTE | 2019-05-01 13:40 | NUR ---
PT RESTING QUIETLY, BIPAP IN PLACE. RIJ MLC CHANGED. REPOSITIONED.
[2019-05-01 14:00] VITALS: BP 112/60
--- NOTE | 2019-05-01 15:17 | NUR ---
Parking Lot Chauffeur in to talk to patient. Patient states lives at HOME with . There are NO steps in the home. Physician: QUAN Pharmacy: [facility] Home health services: NONE Patient's level of ADLs: INDEPENDENT Patient has working utilities: YES DME: BIPAP AND O2. [employer] IS [employer] Follow-up physician's appointment after d/c: WILL BE MADE BY HOSPITALIST NURSE DIRECTOR ON DISCHARGE Does patient want to access PORTAL?: NO Discharge plan PT LIVES AT HOME WITH HIS . PER AT BEDSIDE PT WAS INDEPENDENT IN HIS CARE PRIOR TO COMING TO HOSPITAL. STATES SHE IS NOT SURE WHAT PT NEEDS ARE AT THIS TIME. WANTS TO WAIT TO SEE HOW HE PROGRESSES. WILL CONTINUE TO FOLLOW. . WALDO BELLA
[2019-05-01 16:00] VITALS: BP 120/57
--- NOTE | 2019-05-01 17:00 | NUR ---
PATIENT TUBE FEEDINGS INCREASED TO 50CC/HR. PATIENT APPEARS TO BE TOLERATING WELL. NO S/S OF DISTRESS. NO ABDOMINAL DISTENTION OR TENDERNESS.
[2019-05-01 20:00] VITALS: BP 137/62
--- NOTE | 2019-05-01 21:19 | NUR ---
24 HR chart check completed.
[2019-05-02] VITALS: BP 121/53
--- NOTE | 2019-05-02 | NUR ---
PATIENT RESTING ON BIPAP, NO SIGNS OF DISTRESS. VITAL SIGNS STABLE. WILL CONTINUE TO MONITOR.
[2019-05-02 04:00] VITALS: BP 111/46
[2019-05-02 06:12] LABS: ALBUMIN 2.9 gm/dl (3.1-4.5); ALKALINE PHOSPHATASE 133 U/L (45-117); CHLORIDE 101 mmol/L (98-107); CREATININE 0.92 mg/dL (0.70-1.30); POTASSIUM 5.4 mmol/L (3.5-5.1); SGOT/AST 31 IU/L (3-35); SGPT/ALT 66 U/L (12-78); SODIUM 142 mmol/L (136-145); TOTAL PROTEIN 7.8 gm/dL (6.4-8.2)
[2019-05-02 06:32] LABS: BUN 71 mg/dl (7-24)
[2019-05-02 07:04] LABS: HEMATOCRIT 49.2 % (42.0-52.0); HEMOGLOBIN 14.8 g/dl (14.0-18.0); MEAN CORPUSCULAR HGB 28.6 pg (27.0-31.0); MEAN CORPUSCULAR HGB CONC 30.1 g/dl (33.0-37.0); MEAN PLATELET VOLUME 11.8 fl (9.6-12.3); PLATELET COUNT AUTOMATED 253 10*3/uL (130-400); RED BLOOD COUNT 5.17 10*6/uL (4.50-5.90); RED CELL DISTRI WIDTH 14.2 % (0-14.5); WHITE BLOOD COUNT 17.9 10*3/uL (4.8-10.8)
[2019-05-02 07:07] LABS: MEAN CELL VOLUME 95.2 fl (80.0-94.0)
[2019-05-02 07:29] LABS: ARTERIAL BLOOD GAS PH 7.293 (7.35-7.45)
[2019-05-02 08:00] VITALS: BP 131/60
[2019-05-02 08:29] LABS: PLATELET SUFFICIENCY NORMAL (NORMAL); TOTAL CELLS COUNTED 100 #CELLS
[2019-05-02 08:30] LABS: POLYCHROMASIA SLIGHT
[2019-05-02 12:00] VITALS: BP 125/58
[2019-05-02 12:18] LABS: ABG BASE EXCESS 10.9 mmol/L (-2.0-2.0); ARTERIAL BLOOD GAS PH 7.335 (7.35-7.45)
[2019-05-02 16:00] VITALS: BP 131/53
--- NOTE | 2019-05-02 16:00 | NUR ---
Pt taken off BiPap to do some mouth care. Gave pt a 5 minute break. Pt tolerated well with eyes open. Minimal oral secretions. Pt placed back on BiPap 20/10 and 50%. Alarms on and audible.
--- NOTE | 2019-05-02 20:00 | NUR ---
Pt given some oral mouth care without the BiPap. Tolerated well. Placed back on the BiPap. 20/10 and an FIo2 50%. Alarms on and audible.
[2019-05-02 20:01] VITALS: BP 128/54
--- NOTE | 2019-05-02 20:30 | NUR ---
PATIENT RESTING ON BIPAP, DOES OPEN EYES FOR A SHORT TIME WHEN TALKING TO HIM. FAINT HAND LIBRARY CIRCULATION ASSISTANT. VITAL SIGNS STABLE. WILL CONTINUE TO MONITOR.
--- NOTE | 2019-05-02 23:20 | NUR ---
PATIENT TAKEN OFF BIPAP TO MOISTEN MOUTH, PLACED ON 6L NC. PATIENT HAS EYES OPEN, SLIGHT NODS YES AND NO. PATIENT SLOWLY STARTED TO GUPPY BREATH, AND PULSE OX BEGAN TO DROP TO 90% WITHIN A COUPLE OF MINS. PATIENT PLACED BACK ON BIPAP.
--- NOTE | 2019-05-02 23:30 | NUR ---
Pt given a break off the BiPap. Placed on 6L NC. Mouth swabbed. Pt lasted about 10 minutes before he started guppy breathing and dipping into the high 80's SPO2. Pt placed back on BiPap 20/10 and FiO2 50%. Alarms on and audible.
[2019-05-03] VITALS: BP 131/55
--- NOTE | 2019-05-03 01:04 | NUR ---
24 HR chart check completed.
[2019-05-03 04:00] VITALS: BP 110/45
[2019-05-03 05:54] LABS: ALBUMIN 2.7 gm/dl (3.1-4.5); ALKALINE PHOSPHATASE 129 U/L (45-117); BUN 71 mg/dl (7-24); CHLORIDE 103 mmol/L (98-107); CREATININE 0.91 mg/dL (0.70-1.30); POTASSIUM 4.9 mmol/L (3.5-5.1); SGOT/AST 31 IU/L (3-35); SGPT/ALT 61 U/L (12-78); SODIUM 145 mmol/L (136-145); TOTAL PROTEIN 7.3 gm/dL (6.4-8.2)
[2019-05-03 06:49] LABS: ABG BASE EXCESS 11.4 mmol/L (-2.0-2.0); ARTERIAL BLOOD GAS PH 7.339 (7.35-7.45)
[2019-05-03 07:14] LABS: HEMATOCRIT 47.6 % (42.0-52.0); HEMOGLOBIN 13.9 g/dl (14.0-18.0); MEAN CELL VOLUME 97.9 fl (80.0-94.0); MEAN CORPUSCULAR HGB 28.6 pg (27.0-31.0); MEAN CORPUSCULAR HGB CONC 29.2 g/dl (33.0-37.0); NUCLEATED RED BLOOD CELL 0.1 % (0.0-0.0); PLATELET COUNT AUTOMATED 249 10*3/uL (130-400); RED BLOOD COUNT 4.86 10*6/uL (4.50-5.90); WHITE BLOOD COUNT 21.1 10*3/uL (4.8-10.8)
[2019-05-03 08:00] VITALS: BP 126/54
[2019-05-03 08:35] LABS: TOTAL CELLS COUNTED 100 #CELLS
[2019-05-03 08:36] LABS: PLATELET SUFFICIENCY NORMAL (NORMAL)
--- NOTE | 2019-05-03 09:37 | NUR ---
PT MEDICATED WITH VISTARIL FOR C/O ANXIETY AND ROBAXIN FOR MUSCLE ACHES.
[2019-05-03 10:12] LABS: ABG BASE EXCESS 13.9 mmol/L (-2.0-2.0); ARTERIAL BLOOD GAS PH 7.349 (7.35-7.45)
[2019-05-03 12:00] VITALS: BP 133/63
[2019-05-03 14:50] LABS: ABG BASE EXCESS 14.6 mmol/L (-2.0-2.0); ARTERIAL BLOOD GAS PH 7.388 (7.35-7.45)
--- NOTE | 2019-05-03 15:14 | NUR ---
ACID PAINTER IN TO TALK WITH PT. PT ON BIPAP AND IS NOT PRESENT AT THIS TIME. WILL CONTINUE TO FOLLOW.
[2019-05-03 16:00] VITALS: BP 127/57
--- NOTE | 2019-05-03 16:10 | NUR ---
Taken off bi-pap. Placed on venturi mask 10 liters oxygen. Mouth care given. Suctioned with [place] for large thick cream/bloody secretions.
--- NOTE | 2019-05-03 17:50 | NUR ---
Complains of shortness of breath. Pulse ox 82% on 10 liters venturi mask. Placed back on Bi-pap 25/ and pulse ox up to 94%
--- NOTE | 2019-05-03 19:34 | NUR ---
24 HR chart check completed.
[2019-05-03 20:00] VITALS: BP 131/51
--- NOTE | 2019-05-03 20:18 | NUR ---
PT RESTING ON BED WITH EASY RESPIRATIONS AT THIS TIME. BIPAP IN PLACE. PT TOLERATING WELL AT THIS TIME. ART LINE ZERO SUCCESSFUL ADEQUATE WAVE FORM AND READINGS. NG TUBE ASSESSED WITH AIR BOLUS NOTED FOR PLACEMENT AND 30 ML RESIDUAL. 200 ML FREE WATER GIVEN. GAONA CATHETER IN PLACE AND PATENT. PT POSITIONED PER TURN SCHEDULE AND FOR COMFORT. NO ACUTE DISTRESS AT THIS TIME.
[2019-05-04] VITALS: BP 122/57
--- NOTE | 2019-05-04 00:09 | NUR ---
REPOSITIONED ON LEFT SIDE. HOB ELEVATED. SIDE RAILS UP X'S 2. NPO. ORAL CARE DONE. TUBE FEEDINGS INTACT VIA NGT. TOLERATING FAIR. BIPAP INTACT. PULSE OX 94%. ART LINE INTACT. FLUSHES WELL WITH GOOD WAVEFORM AND DYNAMIC RESPONSE. GAONA PATENT AND DRAINING CLEAR YELLOW URINE. RIJ MCL INTACT.
--- NOTE | 2019-05-04 02:26 | NUR ---
0200 COMPLETE BED BATH GIVEN AND LINENS CHANGED. REPOSITIONED ON R SIDE. ORAL CARE DONE AND MOUTH SUCTIONED FOR SCANT SPUTUM.
[2019-05-04 04:00] VITALS: BP 135/53
[2019-05-04 05:05] LABS: HEMATOCRIT 48.6 % (42.0-52.0); HEMOGLOBIN 14.2 g/dl (14.0-18.0); MEAN CELL VOLUME 96.6 fl (80.0-94.0); MEAN CORPUSCULAR HGB 28.2 pg (27.0-31.0); MEAN CORPUSCULAR HGB CONC 29.2 g/dl (33.0-37.0); MEAN PLATELET VOLUME 11.5 fl (9.6-12.3); PLATELET COUNT AUTOMATED 254 10*3/uL (130-400); RED BLOOD COUNT 5.03 10*6/uL (4.50-5.90); WHITE BLOOD COUNT 20.4 10*3/uL (4.8-10.8)
[2019-05-04 05:23] LABS: ALBUMIN 2.8 gm/dl (3.1-4.5); ALKALINE PHOSPHATASE 123 U/L (45-117); BUN 66 mg/dl (7-24); CHLORIDE 102 mmol/L (98-107); CREATININE 0.75 mg/dL (0.70-1.30); PHOSPHOROUS 2.6 mg/dL (2.5-4.9); POTASSIUM 4.7 mmol/L (3.5-5.1); SGOT/AST 34 IU/L (3-35); SGPT/ALT 58 U/L (12-78); SODIUM 144 mmol/L (136-145); TOTAL PROTEIN 7.5 gm/dL (6.4-8.2)
--- NOTE | 2019-05-04 06:07 | NUR ---
REPOSITIONED Q2H. FREE H20 Q4H VIA NGT. TUBE FEEDINGS CONT. ART LINE INTACT. BIPAP INTACT. REMOVED FOR PRN ORAL CARE. GAONA PATENT. CONDITION GUARDED.
[2019-05-04 06:38] LABS: ABG BASE EXCESS 14.5 mmol/L (-2.0-2.0); ARTERIAL BLOOD GAS PH 7.367 (7.35-7.45)
--- NOTE | 2019-05-04 07:17 | NUR ---
Shift chart check completed.24 HR chart check completed.
[2019-05-04 07:23] LABS: ATYPICAL LYMPHS 1 % (0-0); PLATELET SUFFICIENCY NORMAL (NORMAL); TOTAL CELLS COUNTED 100 #CELLS
[2019-05-04 08:00] VITALS: BP 130/50
[2019-05-04 10:18] LABS: BILIRUBIN NEGATIVE (NEGATIVE); BLOOD TRACE-INTACT (NEGATIVE); CLARITY SL CLOUDY (CLEAR); COLOR YELLOW (YELLOW); GLUCOSE NEGATIVE (NEGATIVE); KETONE NEGATIVE (NEGATIVE); LEUKO ESTERASE NEGATIVE (NEGATIVE); NITRITE NEGATIVE (NEGATIVE); PH 7.5 (5.0-9.0); UROBILINOGEN 0.2 E.U./dl (0.2-1.0)
[2019-05-04 10:34] LABS: BACTERIA TRACE
--- NOTE | 2019-05-04 10:42 | NUR ---
ARTERIAL LINE D/C PER ORDER. DIGITAL PRESSURE X 5 MINUTES AND PRESSURE DRESSING APPLIED. ATTEMPTED REMOVAL OF BIPAP BY RESPIRATORY. WITHIN MINUTES HE WAS "GUPPY" BREATHING AND NODDED HE WAS HAVING A HARD TIME BREATHING. THEREFORE BIPAP REAPPLIED. DR MENDOZA AWARE. PERIPHERAL STICK BLOOD CULTURES X 2 SITES HAVE BEEN DRAWN. URINE SENT FOR UA/REFLEX TO CULTURE. SPECIMEN DID NOT REFLEX TO CULTURE. REPOSITIONED. PASSIVE ROM TO EXTREMITIES. FAMILY IN AND UPDATED ON PLAN OF CARE.
[2019-05-04 12:00] VITALS: BP 130/65
--- NOTE | 2019-05-04 12:50 | NUR ---
SPOKE WITH PT ABOUT LTAC AND THAT [facility]CO WAS LOOKING AT PT. IS IN AGREEMENT AND SAYS WHATEVER IS BEST FOR HIM SHE IS AGREEABLE TO. WILL CONTINUE TO FOLLOW.
--- NOTE | 2019-05-04 15:35 | NUR ---
UNSUCCESSFUL ATTEMPT AT MIDLINE. REPOSITIONED FOR COMFORT.
[2019-05-04 16:00] VITALS: BP 135/69
--- NOTE | 2019-05-04 17:42 | NUR ---
DR MAGAÑA PLACED 20GUAGE 10CM POWERGLIDE RT UPPER ARM WITH ULTRASOUND FOR VEIN LOCATION. MLC REMOVED INTACT FROM RIJ. DIGITAL PRESSURE X 5 MINUTES AND DRESSING APPLIED.
--- NOTE | 2019-05-04 18:21 | NUR ---
ELIAS, THE LIASON FROM [facility] HAS BEEN IN AND TALKED WITH PT'S FAMILY.
[2019-05-04 20:00] VITALS: BP 126/61
--- NOTE | 2019-05-04 20:14 | NUR ---
1930 RESTING IN BED ON RIGHT SIDE. HOB ELEVATED. SIDE RAILS UP X'S 2. PT EYES OPEN. FOLLOWS COMMANDS. REMAINS NON-VERBAL AT PRESENT. BIPAP INTACT. PULSE OX 97% ON 4O% FIO2. MIDLINE INTACT RA AND HEP LOCKED. DRSG INTACT TO OLD RIJ SITE AND OLD RR ART LINE SITE. NO DRNG NOTED. GAONA PATENT AND DRAINING CLEAR YELLOW URINE. REMAINS WEAK. NGT INTACT WITH TF MAINTAINED. NO DISTRESS NOTED.
[2019-05-05] VITALS: BP 121/74
--- NOTE | 2019-05-05 00:18 | NUR ---
REMAINS SLEEPING. MOVES EXTREMITIES PER SELF. BIPAP INTACT. PULSE OX 96%
--- NOTE | 2019-05-05 01:42 | NUR ---
0130 COMPLETE BED BATH GIVEN AND LINENS CHANGED. INCONTINENT OF SMALL AMOUNT LIQUID STOOL. REPOSITIONED.
[2019-05-05 04:00] VITALS: BP 132/66
--- NOTE | 2019-05-05 04:13 | NUR ---
RESTING IN BED WITH EYES CLOSED. APPEARS TO BE SLEEPING.
[2019-05-05 05:15] LABS: HEMATOCRIT 48.5 % (42.0-52.0); HEMOGLOBIN 14.6 g/dl (14.0-18.0); MEAN CELL VOLUME 95.7 fl (80.0-94.0); MEAN CORPUSCULAR HGB 28.8 pg (27.0-31.0); MEAN CORPUSCULAR HGB CONC 30.1 g/dl (33.0-37.0); MEAN PLATELET VOLUME 11.5 fl (9.6-12.3); PLATELET COUNT AUTOMATED 234 10*3/uL (130-400); RED BLOOD COUNT 5.07 10*6/uL (4.50-5.90); RED CELL DISTRI WIDTH 13.7 % (0-14.5); WHITE BLOOD COUNT 16.2 10*3/uL (4.8-10.8)
[2019-05-05 05:36] LABS: ALBUMIN 2.8 gm/dl (3.1-4.5); ALKALINE PHOSPHATASE 115 U/L (45-117); CHLORIDE 101 mmol/L (98-107); CREATININE 0.78 mg/dL (0.70-1.30); POTASSIUM 4.8 mmol/L (3.5-5.1); SGOT/AST 36 IU/L (3-35); SGPT/ALT 66 U/L (12-78); SODIUM 142 mmol/L (136-145); TOTAL PROTEIN 7.3 gm/dL (6.4-8.2)
[2019-05-05 05:37] LABS: BUN 52 mg/dl (7-24)
--- NOTE | 2019-05-05 06:07 | NUR ---
REMAINS SLEEPING WITHOUT DISTRESS. TF CONT. GAONA PATENT. BIPAP INTACT. PULSE OX 95%. CONDITION GUARDED.
[2019-05-05 06:34] LABS: PLATELET SUFFICIENCY NORMAL (NORMAL); TOTAL CELLS COUNTED 100 #CELLS
[2019-05-05 08:00] VITALS: BP 125/62
--- NOTE | 2019-05-05 09:20 | NUR ---
Patient NIV mask changed to a small full face shield due to severe reddening of the bridge of the nose. Patient is tolerating well.
[2019-05-05 10:05] LABS: ABG BASE EXCESS 13.9 mmol/L (-2.0-2.0); ARTERIAL BLOOD GAS PH 7.421 (7.35-7.45)
--- NOTE | 2019-05-05 10:53 | NUR ---
Placed patient on comfort-malgorzata HFNC at 50L and 35% O2. Patient stable at SPO2: 95% with a RR of 19 and HR of 62.
[2019-05-05 12:00] VITALS: BP 127/70
--- NOTE | 2019-05-05 12:19 | NUR ---
Patient NT suctioned for large amount of thick cream colored secretions. Patient tolerated procedure well and is still on the HFNC at 50% and 50L with an SPO2 of 94%, RR of 22, and a HR of 61
[2019-05-05 16:00] VITALS: BP 133/77
[2019-05-05 20:00] VITALS: BP 121/72
--- NOTE | 2019-05-05 21:35 | NUR ---
SPOKE WITH DAUGHTER, EXPLAINED NO CHANGE IN CONDITION. REMAINS ON BIPAP
[2019-05-06] VITALS: BP 115/68
[2019-05-06 03:56] VITALS: BP 104/62
--- NOTE | 2019-05-06 04:03 | NUR ---
PATIENT BED CHANGED AT THIS TIME, PATIENT ALSO CLEANED UP. BATH WAS ATTEMPTED BUT STOPPED DUE TO PATIENT DESATURATNG. CONTINUES TO WEAR THE BIPAP.
[2019-05-06 06:15] LABS: HEMATOCRIT 50.2 % (42.0-52.0); HEMOGLOBIN 15.5 g/dl (14.0-18.0); MEAN CELL VOLUME 92.8 fl (80.0-94.0); MEAN CORPUSCULAR HGB 28.7 pg (27.0-31.0); MEAN CORPUSCULAR HGB CONC 30.9 g/dl (33.0-37.0); MEAN PLATELET VOLUME 12.3 fl (9.6-12.3); PLATELET COUNT AUTOMATED 266 10*3/uL (130-400); RED BLOOD COUNT 5.41 10*6/uL (4.50-5.90); RED CELL DISTRI WIDTH 13.6 % (0-14.5); WHITE BLOOD COUNT 26.5 10*3/uL (4.8-10.8)
[2019-05-06 06:29] LABS: ALKALINE PHOSPHATASE 125 U/L (45-117); BUN 47 mg/dl (7-24); CHLORIDE 102 mmol/L (98-107); CREATININE 0.76 mg/dL (0.70-1.30); POTASSIUM 4.7 mmol/L (3.5-5.1); SGOT/AST 32 IU/L (3-35); SGPT/ALT 71 U/L (12-78); SODIUM 138 mmol/L (136-145); TOTAL PROTEIN 7.8 gm/dL (6.4-8.2)
[2019-05-06 07:25] LABS: PLATELET SUFFICIENCY NORMAL (NORMAL); TOTAL CELLS COUNTED 100 #CELLS
[2019-05-06 07:37] LABS: ABG BASE EXCESS 3.3 mmol/L (-2.0-2.0); ARTERIAL BLOOD GAS PH 7.379 (7.35-7.45)
[2019-05-06 08:00] VITALS: BP 111/66
--- NOTE | 2019-05-06 08:30 | NUR ---
COMPLETE BED AND BATH DONE. TAKEN OFF BI-PAP AND PLACED ON OPTI-FLOW 50% OXYGEN. LUNGS CLEAR BILATERALLY. NO EDEMA NOTED. ACCUCATH INTACT TO UPPER RIGHT ARM AND FLUSHES EASILY. GAONA DRAINING DARK ENDY URINE. ORAL CARE PROVIDED. SUCTIONED BACK OF THROAT FOR LARGE AMOUNT THICK CLEAR SECRETIONS
[2019-05-06 12:00] VITALS: BP 108/66
--- NOTE | 2019-05-06 15:30 | NUR ---
BRIGHT RED BLOOD NOTED IN GAONA. SMALL AMOUNT BURGENDY COLORED BLOOD NOTED IN BOWEL MOVEMENT. DR. IGNACIO NOTIFIED. DENAE PLACED ON HOLD.
[2019-05-06 16:00] VITALS: BP 110/63
[2019-05-06 16:20] LABS: HEMATOCRIT 51.7 % (42.0-52.0); HEMOGLOBIN 15.8 g/dl (14.0-18.0); MEAN CELL VOLUME 94.2 fl (80.0-94.0); MEAN CORPUSCULAR HGB 28.8 pg (27.0-31.0); MEAN CORPUSCULAR HGB CONC 30.6 g/dl (33.0-37.0); MEAN PLATELET VOLUME 11.6 fl (9.6-12.3); PLATELET COUNT AUTOMATED 273 10*3/uL (130-400); RED BLOOD COUNT 5.49 10*6/uL (4.50-5.90); RED CELL DISTRI WIDTH 13.6 % (0-14.5); WHITE BLOOD COUNT 26.1 10*3/uL (4.8-10.8)
[2019-05-06 16:42] LABS: TOTAL CELLS COUNTED 100 #CELLS
[2019-05-06 16:43] LABS: PLATELET SUFFICIENCY NORMAL (NORMAL)
[2019-05-06 19:51] VITALS: BP 96/54
[2019-05-07] VITALS: BP 123/64
[2019-05-07 04:00] VITALS: BP 97/60
[2019-05-07 05:29] LABS: ALKALINE PHOSPHATASE 123 U/L (45-117); BUN 56 mg/dl (7-24); CHLORIDE 104 mmol/L (98-107); CREATININE 0.83 mg/dL (0.70-1.30); POTASSIUM 4.5 mmol/L (3.5-5.1); SGOT/AST 27 IU/L (3-35); SGPT/ALT 65 U/L (12-78); SODIUM 137 mmol/L (136-145); TOTAL PROTEIN 7.6 gm/dL (6.4-8.2)
[2019-05-07 06:12] LABS: HEMATOCRIT 50.4 % (42.0-52.0); HEMOGLOBIN 15.6 g/dl (14.0-18.0); MEAN CELL VOLUME 91.8 fl (80.0-94.0); MEAN CORPUSCULAR HGB 28.4 pg (27.0-31.0); MEAN PLATELET VOLUME 12.5 fl (9.6-12.3); PLATELET COUNT AUTOMATED 286 10*3/uL (130-400); RED BLOOD COUNT 5.49 10*6/uL (4.50-5.90); RED CELL DISTRI WIDTH 13.7 % (0-14.5); WHITE BLOOD COUNT 22.8 10*3/uL (4.8-10.8)
[2019-05-07 06:40] LABS: TOTAL CELLS COUNTED 100 #CELLS
[2019-05-07 06:41] LABS: BURR CELLS FEW; PLATELET SUFFICIENCY NORMAL (NORMAL); POLYCHROMASIA SLIGHT; TOXIC GRANULATION SLIGHT
[2019-05-07 07:24] LABS: ABG BASE EXCESS 0.6 mmol/L (-2.0-2.0); ARTERIAL BLOOD GAS PH 7.414 (7.35-7.45)
[2019-05-07 08:00] VITALS: BP 99/63
--- NOTE | 2019-05-07 10:51 | NUR ---
ORALLY SUCTIONED FOR YELLOW/CREAM COLORED CONTENTS. THIS APPEARS TO BE THE COLOR OF THE TUBE FEEDINGS. TUBE FEEDS HELD AND STAT CXR ORDERED
--- NOTE | 2019-05-07 13:27 | NUR ---
PT. ON HIGH FLOW NASAL CANNULA AT 12 LITERS, SAT 92, HEART RATE 60 , RATE 22.
[2019-05-07 16:00] VITALS: BP 99/62
[2019-05-07 20:00] VITALS: BP 106/56
[2019-05-08] VITALS (7 sets, daily range): BP systolic 88–110; BP diastolic 47–53
[2019-05-08 07:24] LABS: HEMATOCRIT 45.9 % (42.0-52.0); HEMOGLOBIN 14.5 g/dl (14.0-18.0); MEAN CELL VOLUME 91.6 fl (80.0-94.0); MEAN CORPUSCULAR HGB 28.9 pg (27.0-31.0); MEAN CORPUSCULAR HGB CONC 31.6 g/dl (33.0-37.0); MEAN PLATELET VOLUME 12.1 fl (9.6-12.3); PLATELET COUNT AUTOMATED 256 10*3/uL (130-400); RED BLOOD COUNT 5.01 10*6/uL (4.50-5.90); RED CELL DISTRI WIDTH 13.9 % (0-14.5); WHITE BLOOD COUNT 18.6 10*3/uL (4.8-10.8)
--- NOTE | 2019-05-08 07:30 | NUR ---
ASHA PALENCIA [id number] Please refer to the physician's history and physical for past medical history, comorbid conditions, and allergies. Diagnosis: RESPIRATORY FAILURE Rickey Score: 14,MODERATE RISK WOUND DESCRIPTIONS: Wound Number: 1 Location of the wound: Right posterior arm Type of wound: skin tear Thickness: Partial Size: 1cm x 0.5cm x <0.1cm Tunneling: none Undermining: none Sinus Tract: none Presence of Exudate: Serosanguineous Amount: Light Color: Red Odor: None Periwound Skin Appearance: Normal Wound edges: approximated Pain (associated with wound): none at time of assessment Wound Number: 2 Location of the wound: right anterior arm Type of wound: skin tear Thickness: Partial Size: 0.9cm x 0.3cm x 0.1cm Tunneling: none Undermining: none Sinus Tract: none Presence of Exudate: Serosanguineous Amount: Light Color: Red Odor: None Periwound Skin Appearance: Normal Wound edges: approximated Pain (associated with wound): none at time of assessment Surface the patient is resting on: XPRT SKIN PREVENTION RECOMMENDATION: 1. Pressure redistribution support surface as appropriate 2. Elevate heels 3. Remove boots/TEDS every shift and reapply 4. Head of bed 30 degrees as tolerated 5. Assess nutrition and hydration 6. Manage moisture 7. Avoid the use of containment devices while in bed 8. Use absorptive products on surfaces limit layers of linens on bed 9. Turn and reposition every 1-2 hours in bed and every 1 hour in chair as tolerated 10. Weight shifts every 15 minutes while up in chair 11. Offloading with pillows or device to keep heels elevated off bed 12. Monitor skin at least every shift 13. Inspect under medical devices twice a day WOUND TREATMENT RECOMMENDATIONS: CONTINUE CURRENT ORDERS.
[2019-05-08 07:45] LABS: BASOPHILS 1 % (0-1); PLATELET SUFFICIENCY NORMAL (NORMAL); TOTAL CELLS COUNTED 100 #CELLS; TOXIC GRANULATION SLIGHT
--- NOTE | 2019-05-08 08:00 | NUR ---
PT SLEEPING. PT AWAKENS WITH STIMULI. RESP. EASY. VSS. LUNG BARLOW DIM. PT REMAINS ON BIPAP 40% POX 99%. OGT PATENT AND TUBE FEEDING INFUSING AT 50CC/HR. ABD SOFT WITH ACTIVE BOWEL SOUNDS. GAONA PATENT FOR CLEAR YELLOW URINE. NO PERIPHERAL EDEMA NOTED. DRESSINGS TO ARM INTACT. DR PALMA IN TO SEE PT EARLIER.
[2019-05-08 08:01] LABS: BUN 58 mg/dl (7-24); CHLORIDE 109 mmol/L (98-107); CREATININE 0.86 mg/dL (0.70-1.30); POTASSIUM 4.1 mmol/L (3.5-5.1); SODIUM 140 mmol/L (136-145)
--- NOTE | 2019-05-08 09:31 | NUR ---
Called to patients room regarding questions about precert for [employer]. They are stating their mother called insurance and they are saying its approved but they are waiting for medical documents. Sent message to Madhu maldonado [facility] explaining situation and asked for her to check on this so I can let the patients son know what is going on. will follow
--- NOTE | 2019-05-08 10:00 | NUR ---
Occupational Therapy evaluation completed in ICCU with full eval to follow. Precautions include ICCU,NG tube,5 LPM high flow O2,bipap,dyer,poor activity tolerance,midline, max +2 bed-rolling,poor BUE strength, high complexity level 50584. Recommend OT per POC and LTACH upon d/c. Thank you. Oralia Wilson OTR/l
--- NOTE | 2019-05-08 14:22 | NUR ---
SPEECH PATHOLOGY Clinical swallowing evaluation completed to assess candidacy for oral feeding. Patient is currently fed via NG tube. Medical history includes respiratory failure, acute pneumonia with acute tracheobronchitis, prior intubation, metabolic encephalopathy, COPD, CAD, DM, A-fib, CHF. Patient has been displaying decreased need for BiPap and oral suctioning. He was alert and cooperative for evaluation with family members present. No prior history of dysphagia was reported. Patient was wearing O2 via NC at 4L. Congested cough was displayed, as well as weak vocal quality. Patient was edentulous and displayed weak lingual and buccal skills. He was assessed with applesauce and both nectar and honey thick liquids. He displayed a weak swallow overall with decreased laryngeal elevation and need for multiple swallows per bite/sip. Immediate cough was displayed with nectar liquid. Delayed cough was displayed with applesauce and honey thick liquid. Overall he displays s/s aspiration therefore continued NPO is recommended. Follow up therapy will be conducted focusing on strengthening exercises and continued feeding trials as appropriate to work toward safe resumption of po feeding. Results and judah. were shared with family and physician and they verbalized understanding. Refer to report in [employer] for further information. Thank you for this referral. TAMMIE LE MSCCC-BISTRO SERVER
--- NOTE | 2019-05-08 14:41 | NUR ---
PHYSICAL THERAPY Bertha completed recomend LTACH at discharge pt high level of complexity. PT to work on strengthening, bed mobility, transfers, standing/OOB to chair acitivity with progression to ambulation as appropriate. Luana García PT
--- NOTE | 2019-05-08 20:17 | NUR ---
PT. RESTING IN BED. HEP LOCK IN RIGHT UPPER ARM NOTED. LUNGS DIMINISHED BILAT, PULSE OX 96% ON 4L NC. ABDOMEN SOFT, NONDISTENDED AND NORMO. NO PERIPHERAL EDEMA NOTED. NG RIGHT RARE NOTED, TF CONTIUES AT 40CC/HR. GAONA DRAINING A CLEAR YELLOW URINE RESP. EASY AND REG, NO DISTRESS. RIGHT ARM SKIN TEAR DRSG INTACT.
[2019-05-09] VITALS (7 sets, daily range): BP systolic 90–130; BP diastolic 42–58
--- NOTE | 2019-05-09 01:31 | NUR ---
PT. REPOSITIONED MULTIPLE TIMES. EACH TIME PATIENT ENDS UP BACK ON BACK. HEELS ELEV ON PILLOW PATIENT IS REFUSING HEEL PROTECTOR BOOTIES AT PRESENT. RENAE MARQUEZ RN
--- NOTE | 2019-05-09 04:38 | NUR ---
Upon discharge recommend patient to follow up for wound care in outpatient setting continue current wound care orders at discharging facility.
[2019-05-09 04:54] LABS: HEMATOCRIT 45.7 % (42.0-52.0); HEMOGLOBIN 14.5 g/dl (14.0-18.0); MEAN CELL VOLUME 91.4 fl (80.0-94.0); MEAN CORPUSCULAR HGB CONC 31.7 g/dl (33.0-37.0); MEAN PLATELET VOLUME 12.7 fl (9.6-12.3); PLATELET COUNT AUTOMATED 245 10*3/uL (130-400); WHITE BLOOD COUNT 20.5 10*3/uL (4.8-10.8)
[2019-05-09 05:08] LABS: BUN 56 mg/dl (7-24); CHLORIDE 111 mmol/L (98-107); CREATININE 0.72 mg/dL (0.70-1.30); POTASSIUM 4.2 mmol/L (3.5-5.1); SODIUM 141 mmol/L (136-145)
[2019-05-09 05:21] LABS: TOTAL CELLS COUNTED 100 #CELLS
[2019-05-09 05:22] LABS: PLATELET SUFFICIENCY NORMAL (NORMAL)
--- NOTE | 2019-05-09 07:26 | NUR ---
PT NOT ON BIPAP AT THIS TIME
--- NOTE | 2019-05-09 07:38 | NUR ---
Shift chart check completed.24 HR chart check completed.
--- NOTE | 2019-05-09 09:00 | NUR ---
OT NOTE Pt was seen this A.M. 1:1 for 16 minute OT session. Upon arrival pt was sitting upright in the recliner. Pt identified by name and and had no complaints at this time. Pt presented to therapy with continuous 3L-O2 via NC and NG tube in place which he remained on throughout the entire session. Pt's resting Spo2 was 95% and heart rate 66 bpm. Pt completed ADL grooming task of washing his face and hands with Daniel and required several rest breaks throughout for pacing himself. Throughout pt's SpO2 remained 94-95% and heart rate elevated to 70 bpm. Pt was able to tolerate sitting upright in the recliner for all 16 minutes of treatment and was left sitting upright with call light in hand and ICCU nurse notified. Pt's SpO2 was left at 94% and heart rate 61 bpm. Continue with rec D/C plan to LTACH. MARGARITA Avila/Greg
--- NOTE | 2019-05-09 09:21 | NUR ---
PHYSICAL THERAPY TREATMENT TIME: 08:45 AM - 09:00 AM 15 MINUTES TOTAL Patient presented to therapy in sitting position in bedside chair with report of feeling better. Patient is on 3 liters of O2. Patient's RN KADE transferred patient into bedside chair from sitting with good tolerance reported from RN KADE. Patient's VITALS were recorded as O2 = 95% - 97% , pulse= 61- 62, resp = 19,21,33 and B/P= 101/50. Patient gives informed consent for [facility]. Patient was identified by name and on wristband. Patient performed sitting bilateral LE ther ex x 15 reps in all planes of movement for strengthening the bilateral LEs in order to improve patient's functional mobility. Patient sat in chair for 15 minutes and did not have any decresed O2 sats and pulse remained within normal limits. Patient was 1: 1 with this WASTE MACHINE OPERATOR for 15 minutes total for therapeutic exercises. Patient was left in bedside chair with 3 liters of spO2, call light within reach and NG TUBE IN PLACE. Patient's vital all WNLs. Patient was 1:1 with this WASTE MACHINE OPERATOR for 15 minutes total. LUCIO FERNÁNDEZ WASTE MACHINE OPERATOR
--- NOTE | 2019-05-09 09:59 | NUR ---
SPEECH PATHOLOGY Patient was seen for treatment this am. Patient was alert, sitting upright in cole chair visiting with his spouse. Generalized weakness remains as well as SOB. Clinician was informed that physician has ordered a clear liquid diet for patient today. Patient participated in therapy today targeting pharyngeal exercises and trials with thin liquid. He performed exercises with cue and model. Frequent rest breaks were required due to weakness. Patient displayed slow, weak movements. Sips of water were taken by cup. Coughing post swallow was observed following each sip. Reduced laryngeal elevation was displayed. Recommend patient undergo a MBS to determine safest, most appropriate diet. Patient, family and nurse were informed of recommendations and verbalized understanding. Continue therapy plan. TAMMIE LE MSCCC-SILVERWARE CLEANER
--- NOTE | 2019-05-09 11:07 | NUR ---
In to see patient, at bedside. Discussed [facility] being denied by insurance and Dr. Pickard recommending some therapy at skilled facility. Given the choice of what is available in the local area and patient are ok with [facility]. Faxing referral for a benefits check.
--- NOTE | 2019-05-09 11:12 | NUR ---
ON ASSESSMENT THIS AM PT WAS ABLE TO TELL ME HE WAS IN [facility] AND REMEMBERS ME TAKING CARE OF HIM ON PREVIOUS HOSPITALIZATIONS. HE WAS ASSISTED TO GET OUT OF BED TO CHAIR. HE STOOD SURPRISINGLY WELL AND TURNED TO SIT IN THE CHAIR. HE'S BEEN ON BSC FOR LIQUID BROWN BM. DR MENDOZA HAS VISITED. HE OBSERVED HIM TAKE A DRINK OF WATER AND OKAYED A CLEAR LIQUID DIET. HOWEVER SPEECH THERAPY HAS BEEN IN AND REQUESTS A MODIFIED BARIUM SWALLOW. DR TRUONG HAS ORDERED THIS. TUBE FEEDINGS CONTINUE AT 40HR WTIH FREE WATER 200ML Q4HRS. SEE ALL APPROPRIATE INTERVENTIONS. AT THE BEDSIDE.
--- NOTE | 2019-05-09 12:37 | NUR ---
PATIENT UP TO BSC AND CALLED NURSE IN THAT HIS NOSE WAS DRIPPING. TUBE FEEDING DRIPPING FROM NOSE. FEEDING STOPPED AND PLACEMENT CHECKED SHOWING TUBE WAS OUT OF POSITION. TUBE REMOVED. PER DR JAIMES HOLD REINSERTION UNTIL AFTER SWALLOWING STUDY COMPLETED.
--- NOTE | 2019-05-09 13:29 | NUR ---
SPEECH PATHOLOGY Modified barium swallow completed as per orders to determine most appropriate diet consistency. Patient has a significant medical history for respiratory failure, tracheobronchitis, pneumonia, COPD, recent extubation. Patient is NPO and was being fed by NG. His tube was recently dislodged just prior to this exam therefore it was not present at the time of this study. Patient has shown increased alertness, decreased need for suctioning and BiPap and has been asking to eat. He was assessed with puree, soft solid, honey thick and nectar thick liquid. Results revealed a moderate-severe oropharyngeal dysphagia. Bolus formation, transfer and mastication were reduced for soft solid. Patient displayed poor tongue to posterior pharyngeal wall contact across consistencies which resulted in pooling in the valleculae. He was not able to clear the residue and it build up and was also observed to fill the pyriforms, and began to overflow into the airway. His swallow was weak and delayed overall and with reduced laryngeal elevation and epiglottic function. Transient upper airway penetration occurred with first presentation given of applesauce. This did not occur on second trial however build up of residue in the pharynx began which patient could not clear. He is not safe to resume oral intake at this time therefore continued NPO is recommended. Recommend he continue with strengthening exercises as well as trials with oral feeding as tolerated. Results and judah. were shared with patient and his nurse who was present and she verbalized understanding. Dictated report to follow. Thank you for this referral. TAMMIE LE MSCCC-SPANISH INSTRUCTOR
--- NOTE | 2019-05-09 13:34 | NUR ---
Ananda [facility] is out of network and patient doesn't have any out of network benefits. The only snf in network (locally) is [facility]. Contacted facility and faxed referral for review. Will discuss this change with patient/.
--- NOTE | 2019-05-09 13:47 | NUR ---
UPON MY RETURN FROM LUNCH WAS INFORMED THAT NGT HAD COME OUT. PT HAS BEEN ACCOMPANIED TO RADIOLOGY FOR MBS. PER SPEECH RECOMMENDATIONS PT TO REMAIN NPO. UPON RETURN FROM RADIOLOGY A 10 LUXEMBOURGISH FEEDING TUBE PLACED. STAT CXR DONE.
--- NOTE | 2019-05-09 14:20 | NUR ---
DR MENDOZA UPDATED ON MBS RESULTS, THAT I PLACED ANOTHER FEEDING TUBE AND VERIFIED THE TUBE FEEDING RATE. WILL INCREASE TO 60ML/HR.
--- NOTE | 2019-05-09 15:11 | NUR ---
NGT ADVANCED PER RECOMMENDATIONS OF CXR.
--- NOTE | 2019-05-09 16:57 | NUR ---
DR JAIMES TALKED WITH PT'S ABOUT A PEG TUBE AND /PT SAID "OK". DR JAIMES HAS TALKED WITH DR ARORA. REVIEWED HIS MEDS. HOLDING APIXABAN AFTER TONIGHTS DOSE. PLAN FOR PEG TUBE PLACEMENT WEDNESDAY.
--- NOTE | 2019-05-09 17:36 | NUR ---
GAONA CATHETER REMOVED PER ORDER.
--- NOTE | 2019-05-09 20:15 | NUR ---
PT. RESTING IN BED. HEP LOCK IN RIGHT UPPER ARM INTACT. LUNGS DIMINISHED BILAT, PULSE OX 98% ON 3L NC. ABDOMEN SOFT, NONDISTENDED AND NORMO. NO PERIPHERAL EDEMA NOTED. RENAE MARQUEZ RN
--- NOTE | 2019-05-09 21:43 | NUR ---
PT. GIVEN TYLENOL ORDERED FOR GENERALIZED ACHES AND PAINS. RENAE MARQUEZ RN
--- NOTE | 2019-05-09 22:58 | NUR ---
PT. STATES TYLENOL EFFECTIVE FOR GENERALIZED DISCOMFORT. RENAE MARQUEZ RN
[2019-05-10] VITALS (7 sets, daily range): BP systolic 91–140; BP diastolic 40–82
--- NOTE | 2019-05-10 00:33 | NUR ---
PATIENT WAS TAKEN OFF THE FIREMANS MASK AND REPLACED WITH FULL FACE MASK. PATIENT HAD STATED THAT HE SUFFICATING WITH THE OTHER MASK.
--- NOTE | 2019-05-10 01:49 | NUR ---
PT. CONFUSED, WANTS TO CALL IN CASE SHE'S OUT "RUNNING AROUND". REFUSING TO WEAR BIPAP AT PRESENT. BIPAP REMOVED. PT. ON 3L NC. PULSE OX 95%. RENAE MARQUEZ RN
[2019-05-10 06:08] LABS: CHLORIDE 110 mmol/L (98-107); CREATININE 0.74 mg/dL (0.70-1.30); POTASSIUM 4.3 mmol/L (3.5-5.1); SODIUM 138 mmol/L (136-145)
[2019-05-10 06:12] LABS: BUN 43 mg/dl (7-24)
[2019-05-10 06:24] LABS: HEMATOCRIT 45.4 % (42.0-52.0); HEMOGLOBIN 14.3 g/dl (14.0-18.0); MEAN CELL VOLUME 89.7 fl (80.0-94.0); MEAN CORPUSCULAR HGB 28.3 pg (27.0-31.0); MEAN CORPUSCULAR HGB CONC 31.5 g/dl (33.0-37.0); MEAN PLATELET VOLUME 13.4 fl (9.6-12.3); PLATELET COUNT AUTOMATED 224 10*3/uL (130-400); RED BLOOD COUNT 5.06 10*6/uL (4.50-5.90); RED CELL DISTRI WIDTH 13.9 % (0-14.5); WHITE BLOOD COUNT 16.8 10*3/uL (4.8-10.8)
--- NOTE | 2019-05-10 06:57 | NUR ---
PT. INCONTINENT FOR LARGE AMT OF URINE
[2019-05-10 07:11] LABS: PLATELET SUFFICIENCY NORMAL (NORMAL); TOTAL CELLS COUNTED 100 #CELLS
[2019-05-10 07:12] LABS: POLYCHROMASIA SLIGHT
--- NOTE | 2019-05-10 07:55 | NUR ---
PHYSICAL THERAPY UPDATE POC/Goals STG 3-5 day: Supine to sit and sit to supine Mod assist x 2, sitting EOB 5 minutes cga x 2, STS Mod assist x 2 with FWW, Standing 2 minutes Min assist x 2, Bed to Chair transfers with FWW Min to Mod assist x 2 LTG 7-10 days: supine to sit and sit to supine Min assist x 2, Sitting EOB 10 minutes supervision, STS and bed to chair min assist x 2 w FWW, Amb with FWW min to mod assist x 2 25 ft. Monitor oxgyen levels t/o and confer with nsg/respiratory to adjsut accordingly Luana García PT
--- NOTE | 2019-05-10 08:04 | NUR ---
OT NOTE Update POC secondary to patient progression- Dressing: Mod A upper body dressing and Mod A lower body dressing with AE as needed Grooming: Supervision grooming Toileting: Mod A toileting hygiene and clothing management to the BSC Transfers/Mobility: Mod Ax2 bed mobility, Mod Ax2 chair transfers with WW, Mod Ax2 toilet transfers with WW, Mod Ax2 mobility with ww Balance: Fair- dynamic standing balance Increase activity tolerance to 5 minutes of activity in stance with no more than 3 rest breaks to increase independence with ADLs 100% safety with ADLs, mobility, and transfers UE ROM: B/L UE 3+/5 active and active assisted with good tolerance and within pain limits Missy Vargas, OTR/L
--- NOTE | 2019-05-10 09:32 | NUR ---
Patient and understanding that [facility] is the only local facility within [facility] for [employer]. The referral was placed but patient cannot go to a assisted facility while on an NG tube. Dr. Jackson stated patient will be getting a peg tube placement on Wednesday05/12/19. I asked [place] if we could get precert on Wednesday to cover over the weekend for a possible discharge. [facility] stating they are unable to start any precert until after the patient has the peg tube in place and patient is tolerating his feedings. Notified Dr. Jackson patient will require a precert that will most likely not be able to be started until at least 05/14/19.
--- NOTE | 2019-05-10 09:52 | NUR ---
Nutritional Support Services Note: Pt is NPO at this time with NGT feedings of Pulmocare at 60cc/hr. He will be receiving a peg tube on Wednesday05/12/19. Ht.6' Wt.141# IBW 178# He is approx 37# under IBW range. He requires approx. 2000cal daily. TF at 60cc/hr will provide pt with 1440cc/2160cal daily. TF will be appropriate at 60cc per hour. Will follow as needed. Kimberly Dunn Rdn Ld
--- NOTE | 2019-05-10 11:20 | NUR ---
OT NOTE Attempted to see pt this A.m. for OT session and upon arrival pt was working with speech therapy. Will check back at a later time and continue with POC as able. MNAJIT Avila
--- NOTE | 2019-05-10 11:37 | NUR ---
SPEECH PATHOLOGY Patient was seen for treatment this am. He was alert and cooperative, sitting upright in bed visiting with spouse. Treatment targeted oral and pharyngeal exercises to target improving strength and ROM, and trials with water. Patient performed exercises with maximum cue, model and rest breaks. Sips of water were given by spoon. Patient was cued to use hard swallow. He swallowed each sip with a weak, mildly delayed swallow. When cued to take subsequent swallows, each swallow became more delayed. Coughing post swallow was observed. Patient's was educated on results and judah. from yesterday's MBS and verbalized understanding. A written copy of exercises was left for additional practice with spouse. Continue plan daily to improve swallowing abilities for safe resumption of po intake. TAMMIE LE MSCCC-CLINICAL AIDE
--- NOTE | 2019-05-10 12:35 | NUR ---
RETURNED FROM LUNCH TO FIND THAT THE PATIENT DOBBHOFF TUBE WAS DISLODGED WHEN TRANSFERRING FROM BED TO CHAIR. TUBE WAS REINSERTED IN THE RIGHT NARE @65 CM. POSITION WILL BE CONFIRMED WITH CXR.
--- NOTE | 2019-05-10 13:40 | NUR ---
DR. ARORA BACK TO SEE PATIENT AND DISCUSS PLAN OF CARE. ORDERS RECEIVED FOR PEG TUBE PLACEMENT ON WEDNESDAY.
--- NOTE | 2019-05-10 14:19 | NUR ---
SPEECH PATHOLOGY Patient was seen for second treatment session this date. Patient was alert, sitting upright in cole chair this afternoon. He performed effortful swallows while taking small sips of water by spoon. Patient was able to initially swallow with mild delay and decreased strength. Subsequent swallows were moderate-severely delayed. Coughing post swallow was displayed 50% of the time. Patient was noted to be able to cough out mucous during the session, which he had previously been unable to do. Continued NPO is recommended at this time however due to progress, recommend a follow up MBS in a couple days to reassess and determine if he is able to tolerate po feeding. Continue therapy plan tomorrow. TAMMIE LE MSCCC-MANAGER STUDY
--- NOTE | 2019-05-10 14:30 | NUR ---
OT NOTE Pt was seen this P.M. 1:1 for 15 minute OT session. Upon arrival pt was sitting upright in the recliner. Pt identified by name and and had no complaints at this time. Pt presented to therapy with continuous 3L-O2 via NC which he remained on throughout the entire session. Pt's resting SpO2 was 92% and resting heart rate was 71 bpm. Pt completed multiple sit to stand transfers from chair level with Daniel. Challenged pt's static standing tolerance needed for increased I in self care tasks and functional transfers, pt was able to tolerate aprox 60 seconds at a time before sitting due to fatigue. Pt then completed standing pivot from the recliner to the bedside commode with Daniel NON PROFIT FINANCIAL CONTROLLER due to pt being unsteady. Pt then transferreed back to the recliner with Daniel NON PROFIT FINANCIAL CONTROLLER. Throughout all activity pt's SpO2 and heart rate remained within functional limits. Pt was left sitting upright in the recliner with call light in hand, tray table in place, and family at bedside. Continue with rec D/C plan to [facility]. MARGARITA Avila/Greg
--- NOTE | 2019-05-10 14:48 | NUR ---
PHYSICAL THERAPY TREATMENT TIME: 2:10 PM - 2:30 PM 20 MINUTES TOTAL PATIENT PRESENTED TO THERAPY IN SITTING IN BEDSIDE CHAIR AND VISITOR IN ROOM WITHH PATIENT. PATIENT IS ON 3 LITERS OF spO2 via nasal canula. PATIENT GIVES INFORMED CONSENT FOR TREATMENT. PATIENT WAS IDENTIFIED BY NAME AND ON WRISTBAND. PATIENT PERFORMED SIT TO STAND FROM BEDSIDE CHAIR WITH MIN A X 1. PATIENT STOOD IN FRONT OF BEDSIDE CHAIR FOR 1 MINUTE X 3 WITH CGA X 1 TO SBA. PATIENT TRANSFERRED OT BEDSIDE COMMODE WITH CGA X 1 AND MIN A X 1 TO SIT TO STAND FROM BEDSIDE COMMODE. PATIENT TRANSFERRED BACK INTO BEDSIDE CHAIR WITH CGA X 1. PATIENT WAS LEFT IN BEDSIDE CHAIR WIT HCALL LIGHT WITHIN REACH, CONNECTED TO WALL OUTLET WIT H3 LITERS OF SPO2 VIA NASAL CANULA AND VISTOR IN ROOM WITH PATIENT. PATIENT'S VITALS RECORDED 02= 94%, PULSE= 93, RESP.= 38 AND B/P 91/40. PATIENT WAS 1:1 WITH THIS SHAPE HAND for 20 MINUTES TOTAL. LUCIO FERNÁNDEZ SHAPE HAND
--- NOTE | 2019-05-10 19:05 | NUR ---
Shift chart check completed.24 HR chart check completed.
--- NOTE | 2019-05-10 20:16 | NUR ---
ON ASSESSMENT PATIENT RESTING EASILY IN BED, WATCHING TV. PULMOCARE TUBE FEEDINGS CONTINUE AT 60/HR. MIDLINE INTACT RT UPPER ARM. TUBIGRIP APPLIED OVER DRESSING RT ARM SKIN TEARS. TEDS IN PLACE. SCD'S. BED IN LOW POSITION WITH WHEELS LOCKED. SEE ALL APPROPRIATE INTERVENTIONS.
--- NOTE | 2019-05-10 21:30 | NUR ---
COMPLETE BED BATH GIVEN. DTI FOUND ON LEFT HEEL. MEASUREMENTS AND PHOTO DONE. DR BURGOS NOTIFIED AND ORDERS RECEIVED, AND DRESSING APPLIED. HEEL RAISER BOOTS PLACED ON PT (THEY HAD BEEN IN ROOM AND HE HAD BEEN REFUSING THEM). EXPLANATIONS TO WHY HE NEEDED TO WEAR THEM AND HE AGREES.
--- NOTE | 2019-05-10 22:46 | NUR ---
PT APPEARS TO BE SLEEPING SOUNDLY.
[2019-05-11] VITALS: BP 101/72
--- NOTE | 2019-05-11 00:09 | NUR ---
PT AWAKE, ATTEMPTING TO GET OUT OF BED. HE TORE THE HEEL RAISERS OFF AND GOT AGITATED WHEN I TRIED TO PUT THEM BACK ON. CURTAIN OPENED TO THE ROOM SO I CAN SEE HIM AT ALL TIMES.
--- NOTE | 2019-05-11 00:48 | NUR ---
PT HAS PLACED PT ON BIPAP.
--- NOTE | 2019-05-11 01:54 | NUR ---
BIPAP INTACT, PT NOT SLEEPING.
--- NOTE | 2019-05-11 02:46 | NUR ---
PT LEAVING THE BIPAP ON, SLEEPING VERY LITTLE.
[2019-05-11 04:00] VITALS: BP 134/70
--- NOTE | 2019-05-11 04:15 | NUR ---
PT OCCASIONALLY SITS UP, PULLS AT THE BIPAP MASK, WANTS TO KNOW "WHAT'S MARCY DOING?" ATTEMPT TO REORIENT FREQUENTLY.
--- NOTE | 2019-05-11 05:11 | NUR ---
ASHA PALENCIA [id number] Please refer to the physician's history and physical for past medical history, comorbid conditions, and allergies. Diagnosis: RESPIRATORY FAILURE Rickey Score: 16,AT RISK WOUND DESCRIPTIONS: Wound Number: 3 Location of the wound: left heel Type of wound: Deep tissue pressure injury Size: 2.5cm x 1.5cm x <0.1cm Tunneling: none Undermining: none Sinus Tract: none Presence of Exudate: none Amount: None Color: dark red, purple Odor: None Periwound Skin Appearance: Normal Wound edges: approximated Pain (associated with wound): none at time of assessment How does patient state this happened? pt unable to state how this happen Surface the patient is resting on: Position Pro SKIN PREVENTION RECOMMENDATION: 1. Pressure redistribution support surface as appropriate 2. Elevate heels 3. Remove boots/TEDS every shift and reapply 4. Head of bed 30 degrees as tolerated 5. Assess nutrition and hydration 6. Manage moisture 7. Avoid the use of containment devices while in bed 8. Use absorptive products on surfaces limit layers of linens on bed 9. Turn and reposition every 1-2 hours in bed and every 1 hour in chair as tolerated 10. Weight shifts every 15 minutes while up in chair 11. Offloading with pillows or device to keep heels elevated off bed 12. Monitor skin at least every shift 13. Inspect under medical devices twice a day WOUND TREATMENT RECOMMENDATIONS: Clarify DTI guidelines: Apply sureprep to left heel and allow time to dry cover with optifoam gentle. Continue heel raiser pro boots to bilateral feet while in bed
--- NOTE | 2019-05-11 06:09 | NUR ---
OFF BIPAP PER HIS REQUEST. WHEN ASKED IF HE KNOWS WHERE HE IS HE SAYS "YOU TELL ME".
[2019-05-11 07:20] LABS: HEMOGLOBIN 14.6 g/dl (14.0-18.0); MEAN CELL VOLUME 91.6 fl (80.0-94.0); MEAN CORPUSCULAR HGB 29.1 pg (27.0-31.0); MEAN CORPUSCULAR HGB CONC 31.7 g/dl (33.0-37.0); MEAN PLATELET VOLUME 13.2 fl (9.6-12.3); PLATELET COUNT AUTOMATED 282 10*3/uL (130-400); RED BLOOD COUNT 5.02 10*6/uL (4.50-5.90); RED CELL DISTRI WIDTH 14.1 % (0-14.5); WHITE BLOOD COUNT 16.9 10*3/uL (4.8-10.8)
[2019-05-11 07:38] LABS: TOTAL CELLS COUNTED 100 #CELLS
[2019-05-11 07:39] LABS: PLATELET SUFFICIENCY NORMAL (NORMAL)
[2019-05-11 07:45] VITALS: BP 123/53
[2019-05-11 08:01] LABS: BUN 43 mg/dl (7-24); CHLORIDE 106 mmol/L (98-107); SODIUM 142 mmol/L (136-145)
[2019-05-11 08:02] LABS: CREATININE 0.84 mg/dL (0.70-1.30)
--- NOTE | 2019-05-11 08:17 | NUR ---
PHYSICAL THERAPY Screen received pt has already been evaluated and is on caseload, thank you Luana García PT
--- NOTE | 2019-05-11 09:00 | NUR ---
DR MENDOZA IN TO SEE PT.
--- NOTE | 2019-05-11 09:13 | NUR ---
Dr. Mathias notified of wound care recommendations.
--- NOTE | 2019-05-11 09:42 | NUR ---
PT RESTING. NO ACUTE DISTRESS NOTED.
--- NOTE | 2019-05-11 10:32 | NUR ---
SPEECH THERAPIST IN TO WROK WITH PT. PT FOR MODIFIED BARIUM SWALLOW TEST THIS AFTERNOON.
--- NOTE | 2019-05-11 10:52 | NUR ---
SPEECH PATHOLOGY Patient was seen for dysphagia treatment this am. Patient was sitting upright in bedside chair visiting with spouse. He was alert and with stronger, more audible voicing. No congestion was noted. Patient reported that he was able to cough out some mucous just prior to clinician arrival. Patient performed oral and pharyngeal exericses with a model. Improved overall strength and ROM were displayed. Patient reported that he had been practicing the exercises independently this morning. Trial with applesauce was then conducted. Patient took small bites and displayed reduced elevation and need for multiple swallows per bite, but post swallow there was no cough, throat clearing or wet vocal quality. He shows excellent progress overall. Repeat MBS is scheduled for this pm to determine if he is now able to tolerate po feeding. If not, he is scheduled for placement of PEG tube tomorrow. TAMMIE LE MSCCC-MEAT WRAPPER
--- NOTE | 2019-05-11 11:20 | NUR ---
Nutritional Support Services Note: Pt to receive MBS test to assess for safe swallowing. Will follow. Kimberly Dunn Rdn Ld
[2019-05-11 12:00] VITALS: BP 118/52
--- NOTE | 2019-05-11 14:00 | NUR ---
PT TO MODIFIED BARIUM SWALLOW VIA WC.
--- NOTE | 2019-05-11 14:22 | NUR ---
OT NOTE Attempted to see pt this P.M. for OT session and upon arrival pt was out of the room for a modified barium swallow. Will check back at a later time/date and continue with POC as able. MARGARITA Avila/Greg
--- NOTE | 2019-05-11 14:48 | NUR ---
MBS, speech therapy and PT/OT notes faxed to [facility] showing patient no longer requires a peg tube placement. Asked to start precert priscilla today. Waiting on auth
--- NOTE | 2019-05-11 15:00 | NUR ---
SPEECH PATHOLOGY Modified barium swallow completed to determine if patient can safely tolerate po feedings for resumption of diet. Patient was alert and able to follow all commands. He was assessed with puree, nectar thick and thin liquid. Results revealed mild-moderate oropharyngeal dysphagia. His swallow was mildly weak and delayed overall. No aspiration occurred with any consistency. Pooling in valleculae occurred across consistencies. Subsequent swallows were helpful in reducing but not fully eliminating the residue. Penetration during the swallow occurred with thin liquid due to reduced laryngeal elevation and epiglottic function. These results are a significant improvement from his prior study two days ago. It is recommended that patient begin a pureed diet and nectar thick liquid with use of safe swallow precautions such as upright seating for meals, small bites and sips, eating slowly, taking 2-3 swallows with EVERY bite and sip and alternating consistencies. Continued dysphagia therapy is recommended for exercises, education and adherence to safety precautions. Results and judah. were shared with patient, spouse and physician and they verbalized understanding. A written copy of safe swallow precautions was provided and reviewed with patient and spouse. Dictated report to follow. Thank you for this referral. TAMMIE LE MSCCC-CHIP SILO TENDER
[2019-05-11 16:00] VITALS: BP 119/55
--- NOTE | 2019-05-11 16:03 | NUR ---
PHYSICAL THERAPY TREATMENT TIME: 05/11/2019 3:45 PM - 4:05 PM 20 MINUTES TOTAL Patient presneted to therapy insuchestnut with head of bed elevated and be dalarm activated. Patient is on 4 liters of spO2 VIA NASAL CANULA. Patient gives informed consent for treatent. Patient was identified by name and on wristband. Patient transferred supine to sitting at EOB with SBA. Patient has NG TUBE in place. Patient sat on EOB with SBA. Patient sit to stand transfer with MIN A X 1 with verbal cues for pushing off EOB. Patient stood with SUCTION WORKER FOR 2 MINUTES before needing to sit on EOB. Patient performed 30 second sit to stand test from EOB and was recorded as 6 sit to stands in 30 seconds. Patient was CGA X 1 while performing 30 second STS test. Patient sat on EOB and performed therapeutic exercises 2 x 10 reps each in all planes of motion for strengthening the LEs in order to improve patient's functional mobility. Patient performed LAQs, marches, heel/toes raises and hip abduction in sitting. Patient's O2 SATs stayed WNL. Patient's O2 SAT at end of session was recorded as 99% and pulse at 66. Patient transferred back to supine in bed with MIN A X 1. Patient was left with head of bed elevated, call light within reach and bed alarm activated. Patient was 1:1 with this ENGINE WATCHMAN for 20 minutes total. LUCIO FERNÁNDEZ ENGINE WATCHMAN
--- NOTE | 2019-05-11 17:00 | NUR ---
NG TUBE REMOVED. TOLERATED WELL
--- NOTE | 2019-05-11 17:17 | NUR ---
MESSAGE LEFT FOR DR. ARORA REGARDING THAT PATIENT PASSED HIS SWALLOWING EVAL AND THAT THERE IS NO NEED FOR PEG TUBE PLACMENET
--- NOTE | 2019-05-11 19:00 | NUR ---
Patient resting quietly with no c/o discomfort. Respirations easy and regular. Vital signs stable. No overt distress. HELLEN BRIGHT
[2019-05-11 20:00] VITALS: BP 115/57
[2019-05-12] VITALS: BP 121/69
--- NOTE | 2019-05-12 04:00 | NUR ---
PATIENT SLEEPING, EYES CLOSED. NO DISTRESS. CALL LIGHT WITHIN REACH
[2019-05-12 06:51] LABS: BASO % 0.2 % (0.0-1.0); EOS # 0.1 10*3/uL (0.0-0.4); HEMATOCRIT 48.5 % (42.0-52.0); HEMOGLOBIN 15.2 g/dl (14.0-18.0); LYMPH # 1.7 10*3/uL (1.3-4.4); LYMPH % 13.2 % (27.0-41.0); MEAN CELL VOLUME 90.8 fl (80.0-94.0); MEAN CORPUSCULAR HGB 28.5 pg (27.0-31.0); MEAN CORPUSCULAR HGB CONC 31.3 g/dl (33.0-37.0); MEAN PLATELET VOLUME 12.7 fl (9.6-12.3); MONO # 1.3 10*3/uL (0.1-1.0); MONO % 10.5 % (3.0-9.0); NEUT # 9.2 10*3/uL (2.3-7.9); PLATELET COUNT AUTOMATED 297 10*3/uL (130-400); RED BLOOD COUNT 5.34 10*6/uL (4.50-5.90); RED CELL DISTRI WIDTH 14.2 % (0-14.5); WHITE BLOOD COUNT 12.5 10*3/uL (4.8-10.8)
[2019-05-12 07:15] LABS: CHLORIDE 106 mmol/L (98-107); CREATININE 0.77 mg/dL (0.70-1.30); POTASSIUM 3.7 mmol/L (3.5-5.1); SODIUM 141 mmol/L (136-145)
[2019-05-12 07:25] LABS: DIGOXIN 1.42 ng/ml (0.8-2.0)
[2019-05-12 07:32] LABS: BUN 33 mg/dl (7-24)
[2019-05-12 08:00] VITALS: BP 118/72
--- NOTE | 2019-05-12 08:22 | NUR ---
Occupational therapy orders received and patient is already on caseload. Thank you. Missy Vargas, OTR/L
--- NOTE | 2019-05-12 09:06 | NUR ---
PHYSICAL THERAPY TREATMENT TIME: 8:45 AM 9:07 AM 22 MINUTES TOTAL Patient presented to therapy in supine in bed with head of bed elevated and 3 liters of spO2 via nasal canula. Patient reports feeling much better overall. Patient gives informed consent for treatment. Patient was identified by name and on wristband. Patient transferred supine to sitting on EOB with SBA. Patient sat on EOB SBA. Patient transferred sit to stand from EOB with CGA X 1. Patient stood for 1 minute with CGA X 1 without LOB or SOB. Patient ambulated into restroom and transferred onto commode with CGA X 1 with verbal cues for using rail on L side and slowing descent onto commode. Patient ambulated with Wh Walker and CGA X 1 for 60 ' x 1 with no LOB or SOB and mild loss of balance and impulsiveness that creates a a fall risk. Patient performed TUG TEST in 32 seconds with use of UEs to stand from LOW CHAIR. Patient required CGA X 1 during TUG TEST. Patient SIT to stand out of low chair again with CGA X 1. Patient ambulated with CGA X 1 for another 30' x 1 to bedside chair where sat in chair with CGA X 1 AND VERBAL CUES FOR PUTTING HANDS BACK ON ARMRESTS OF CHAIR. Patient was left in bedside chair with 3 liters of spO2 CONNECTED to WALL OUTLET, call light within reach and chair alarm tested and attached to patient. Patient resting O2 SAT was 97% and pulse 62 and POST therapy session O2 SAT was recorded as 93% and pulse at 59. Patient was 1:1 with this VEGETABLE HARVEST WORKER for 22 minutes total. LUCIO FERNÁNDEZ VEGETABLE HARVEST WORKER
--- NOTE | 2019-05-12 09:07 | NUR ---
OT NOTE Pt was seen this A.M. 1:1 for 17 minute OT session. Upon arrival pt was supine in bed. Pt identified by name and and had no complaints at this time. Pt presented to therapy with continuous 3L-O2 via NC which he remained on throughout the entire session. Pt's resting SpO2 was 97%. Pt transferred supine to sit EOB with SBA. While sitting EOB pt donned socks with CGA for safety. Sit to stand completed from bed level with CGA and use of w/w followed by functional mobility into the bathroom with CGA and use of w/w. Throughout pt required occasional verbal prompts for walker safety and slowing down due to being impulsive, pt had poor carry over. Pt transferred on to standard commode with Daniel due to poor safety with alignment of commode. Clothing management completed CGA and transferred off standard commode with CGA. Pt then stood sink side while washing his hands with CGA due to bouts of unsteady stance while standing without UE support. Throughout activity pt's SpO2 dropped to 93%. Functional mobility completed back to the recliner where he was left sitting upright with call light in hand, tray table in place, and body alarm activated for safety. Continue with POC as able. MARGARITA Avila/Greg
--- NOTE | 2019-05-12 09:28 | NUR ---
PT ATE PUREED PANCAKES AND A COUPLE BITES OF PUDDING FOR BREAKFAST. PT TOLERATED WELL. SPEECH IN TO SEE PATIENT DURING BREAKFAST.
--- NOTE | 2019-05-12 09:35 | NUR ---
SPEECH THERAPY Patient seen for dysphagia treatment this morning at breakfast. Patient was pleasant, alert, and conversive throughout treatment. Upon clinicain arrival, patient was consuming unthickened liquids. Education on results and recommendations of most recent MBS provided, including recommended diet and compensatory/safe swallowing strategies. Patient consuming pureed breakfast options with nectar-thick liquids. He reported that he is not a "big eater", and consumed only a few small bites and sips of liquid. Clinicain cuing patient during meal to utilize strategies including taking multiple (2-3) swallows per bite and alternating between solids and liquids to help reduce pharyngeal residues. Patient was receptive with cues to utilize strategies. Reflexive cough on nectar-like liquid was observed on one trial. Patient cued to decrease sip size, and perform hard, effortful swallow. No additional signs/symptoms of penetration/aspiration were observed throughout meal. Following treatment, patient able to recall strategies that were recommended to him. Recommended patient to continue performing swallowing exercises that were given to him, but to avoide exercises prior to PO intake. Recommend continued daily treatment to improve strength and function of oropharyngeal swallow with adherence to safe swallowing strategies. Saadia Reynolds MA CCC-INTERIOR DESIGN PROFESSOR
--- NOTE | 2019-05-12 09:46 | NUR ---
updated clinicals, pt/ot notes, nursing notes on tolerating diet all faxed to [facility] to continue precert. waiting on auth.
--- NOTE | 2019-05-12 10:41 | NUR ---
Received call from Dr. Joyner. He states patient should be able to go home over the weekend with home health services. [employer] in to see patient. Discussed discharge planning with patient and family who are at the bedside. They are agreeable to home with home health care services. When provided with a list of agencies they chose [facility] as they have had them in the past. town planner and hospitalist nurse director notified.
[2019-05-12 12:00] VITALS: BP 111/56
--- NOTE | 2019-05-12 12:56 | NUR ---
patient asking for [facility] home health upon discharge. Received order and faxed referral.
--- NOTE | 2019-05-12 14:00 | NUR ---
OT NOTE Pt was seen this P.M. 1:1 for second OT session consisting of 15 minutes. Upon arrival pt was sitting upright in the recliner. Pt identified by name and and had no complaints at this time. Pt presented to therapy with continuous 3L-O2 via NC which he remained on throughout the entire session. Pt completed sit to stand transfer from chair level with CGA and use of w/w for UE suppoort. Pt completed functional mobility around the room with CGA and use of w/w. Challenged pt's dynamic standing balance needed for increased I and enhanced safety, while weight shifting, crossing midline, and reaching overall planes. Pt was able to maintain G- standing balance throughout. Pt was left sitting upright in the recliner with call light in hand, tray table in place, and body alarm activated for safety. Continue with rec D/C plan to [facility]. MARGARITA Avila/Greg
[2019-05-12] MEDS ORDERED: LOPRESSOR25 MG PO (14:11)
[2019-05-12] MEDS ORDERED: PROTONIX40 MG PO (14:11)
[2019-05-12] MEDS ORDERED: XARE20MG PO (14:11)
[2019-05-12] MEDS ORDERED: PREDNISONE10 MG PO (14:11)
--- NOTE | 2019-05-12 14:12 | NUR ---
PHYSICAL THERAPY TREATMENT TIME: 1:58 PM - 2:15 PM 17 MINUTES TOTAL Patient sit to stand from bedside chair with CGA X 1 to SBA. Patient ambulated 60' x 3 with CGA X 1 with 3 liters of spO2 and no LOB, SOB or other difficulty. Patient's O2 SATs stayed at 97% post ambulation and pulse at 83. Patient transferred into bedside chair with MIN A X 1. Patient was left in bedside chair with call light within reach, chair alarm tested and attached to patient, and spO2 CONNECTED to wall outlet with 3 liters of spO2. Patient was 1:1 with this REHABILITATION NURSE for 17 minutes total. LUCIO FERNÁNDEZ REHABILITATION NURSE
--- NOTE | 2019-05-12 15:00 | NUR ---
PHYSICAL THERAPY CO-SIGN I approve of the Physical Therapy notes written above. Luana García PT
--- NOTE | 2019-05-12 15:02 | NUR ---
OCCUPATIONAL THERAPY CO-SIGN I approve of the Occupational Therapy notes written above. Missy Vargas, OTR/L
--- NOTE | 2019-05-12 15:42 | NUR ---
PT DISCHARGED AT THIS TIME. IV REMOVED AND PRESSURE DRESSING APPLIED. VERBALIZED UNDERSTANDING OF DISCHARGE INSTRUCTIONS. DISCHARGE PHOTOS TAKEN.
== END 2019-05-12 15:42 | disposition home health service (06) | DRG 870 ==
LOC: ED 08:19 → EDHOLD 10:19 → ICCU 10:19 → 5E 05-11 14:32
PROVIDERS: Emergency Medicine; Family Medicine; Internal Medicine; Internal Medicine Critical Care Medicine; ADMIT Internal Medicine
PROC: B548ZZA Ultrasonography of Superior Vena Cava, Guidance (ICD-10-PCS; principal; 2019-04-25)
PROC: 02HV33Z Insertion of Infusion Device into Superior Vena Cava, Percutaneous Approach (ICD-10-PCS; principal; 2019-04-25)
PROC: 4A133J1 Monitoring of Arterial Pulse, Peripheral, Percutaneous Approach (ICD-10-PCS; principal; 2019-04-25)
PROC: 5A1955Z Respiratory Ventilation, Greater than 96 Consecutive Hours (ICD-10-PCS; principal; 2019-04-25)
PROC: 03HY32Z Insertion of Monitoring Device into Upper Artery, Percutaneous Approach (ICD-10-PCS; principal; 2019-04-25)
PROC: 5A09357 Assistance with Respiratory Ventilation, Less than 24 Consecutive Hours, Continuous Positive Airway Pressure (ICD-10-PCS; principal; 2019-04-25)
PROC: 4A133B1 Monitoring of Arterial Pressure, Peripheral, Percutaneous Approach (ICD-10-PCS; principal; 2019-04-25)
PROC: 0BH18EZ Insertion of Endotracheal Airway into Trachea, Via Natural or Artificial Opening Endoscopic (ICD-10-PCS; principal; 2019-04-25)
PROC: 0B9B8ZZ Drainage of Left Lower Lobe Bronchus, Via Natural or Artificial Opening Endoscopic (ICD-10-PCS; 2019-04-28)
PROC: 0B968ZZ Drainage of Right Lower Lobe Bronchus, Via Natural or Artificial Opening Endoscopic (ICD-10-PCS; 2019-04-28)
PROC: 0B958ZZ Drainage of Right Middle Lobe Bronchus, Via Natural or Artificial Opening Endoscopic (ICD-10-PCS; 2019-04-28)
PROC: 0B998ZZ Drainage of Lingula Bronchus, Via Natural or Artificial Opening Endoscopic (ICD-10-PCS; 2019-04-28)
PROC: 0B948ZZ Drainage of Right Upper Lobe Bronchus, Via Natural or Artificial Opening Endoscopic (ICD-10-PCS; 2019-04-28)
PROC: 0B928ZZ Drainage of Carina, Via Natural or Artificial Opening Endoscopic (ICD-10-PCS; 2019-04-28)
PROC: 5A09557 Assistance with Respiratory Ventilation, Greater than 96 Consecutive Hours, Continuous Positive Airway Pressure (ICD-10-PCS; 2019-04-30)
PROC: 5A09357 Assistance with Respiratory Ventilation, Less than 24 Consecutive Hours, Continuous Positive Airway Pressure (ICD-10-PCS; 2019-05-04)
PROC: 5A09357 Assistance with Respiratory Ventilation, Less than 24 Consecutive Hours, Continuous Positive Airway Pressure (ICD-10-PCS; 2019-05-05)
PROC: 5A09357 Assistance with Respiratory Ventilation, Less than 24 Consecutive Hours, Continuous Positive Airway Pressure (ICD-10-PCS; 2019-05-06)
PROC: 5A09357 Assistance with Respiratory Ventilation, Less than 24 Consecutive Hours, Continuous Positive Airway Pressure (ICD-10-PCS; 2019-05-07)
PROC: 5A09357 Assistance with Respiratory Ventilation, Less than 24 Consecutive Hours, Continuous Positive Airway Pressure (ICD-10-PCS; 2019-05-08)
PROC: BD1BYZZ Fluoroscopy of Mouth/Oropharynx using Other Contrast (ICD-10-PCS; 2019-05-09)
PROC: 5A09357 Assistance with Respiratory Ventilation, Less than 24 Consecutive Hours, Continuous Positive Airway Pressure (ICD-10-PCS; 2019-05-11)
PROC: BD1BYZZ Fluoroscopy of Mouth/Oropharynx using Other Contrast (ICD-10-PCS; 2019-05-11)
PROC: 5A09357 Assistance with Respiratory Ventilation, Less than 24 Consecutive Hours, Continuous Positive Airway Pressure (ICD-10-PCS; 2019-05-12)
DX: A41.89 Other specified sepsis (principal); N17.0 Acute kidney failure with tubular necrosis; R65.21 Severe sepsis with septic shock; J13 Pneumonia due to Streptococcus pneumoniae; J96.22 Acute and chronic respiratory failure with hypercapnia; J96.21 Acute and chronic respiratory failure with hypoxia; E43 Unspecified severe protein-calorie malnutrition; J44.1 Chronic obstructive pulmonary disease with (acute) exacerbation; E87.0 Hyperosmolality and hypernatremia; J44.0 Chronic obstructive pulmonary disease with (acute) lower respiratory infection; E87.3 Alkalosis; I48.21 Permanent atrial fibrillation; I42.9 Cardiomyopathy, unspecified; T17.890A Other foreign object in other parts of respiratory tract causing asphyxiation, initial encounter; E86.1 Hypovolemia; E87.5 Hyperkalemia; J20.9 Acute bronchitis, unspecified; E11.65 Type 2 diabetes mellitus with hyperglycemia; I50.9 Heart failure, unspecified; I25.10 Atherosclerotic heart disease of native coronary artery without angina pectoris; I48.91 Unspecified atrial fibrillation; K21.9 Gastro-esophageal reflux disease without esophagitis; E87.8 Other disorders of electrolyte and fluid balance, not elsewhere classified; R13.12 Dysphagia, oropharyngeal phase; F41.1 Generalized anxiety disorder; E83.39 Other disorders of phosphorus metabolism; E83.41 Hypermagnesemia; R31.9 Hematuria, unspecified; X58.XXXA Exposure to other specified factors, initial encounter; I25.2 Old myocardial infarction; Z95.810 Presence of automatic (implantable) cardiac defibrillator; Z87.891 Personal history of nicotine dependence; Z79.899 Other long term (current) drug therapy; Z79.82 Long term (current) use of aspirin; Z80.3 Family history of malignant neoplasm of breast; Z80.0 Family history of malignant neoplasm of digestive organs; Z79.01 Long term (current) use of anticoagulants; Z68.20 Body mass index [BMI] 20.0-20.9, adult; Y93.89 Activity, other specified

== ENCOUNTER → 2020-05-19 | Outpatient (CLI) | payer MEDICARE ==
[~2020-05-19] MED LIST changes: +LOPRESSOR25 MG PO; +METFORMIN HYDR500 MG PO; +PROTONIX40 MG PO; +TRELEGY ELLIPT1 EACH INH; +XARE20MG PO
[2020-05-19 08:54] LABS: CHOLESTEROL 166 mg/dL (<200); HDL CHOLESTEROL 43 mg/dl (40-60); LDL CHOLESTEROL 100 mg/dL (9-159); TRIGLYCERIDES 113 mg/dl (<150); VLDL CHOLESTEROL 23 mg/dL (6-40)
== END | disposition home or self-care (01) ==
LOC: LAB 00:01
PROVIDERS: ATTEND Family Medicine
DX: E78.5 Hyperlipidemia, unspecified (principal)

== ENCOUNTER → 2020-10-08 | Outpatient (CLI) | payer MEDICARE ==
[2020-10-08 10:09] LABS: BASO # 0.1 10*3/uL (0.0-0.1); EOS # 0.4 10*3/uL (0.0-0.4); EOS % 4.5 % (1.0-4.0); HEMATOCRIT 52.8 % (42.0-52.0); LYMPH # 2.1 10*3/uL (1.3-4.4); LYMPH % 23.5 % (27.0-41.0); MEAN CELL VOLUME 93.5 fl (80.0-94.0); MEAN CORPUSCULAR HGB 28.8 pg (27.0-31.0); MEAN CORPUSCULAR HGB CONC 30.9 g/dl (33.0-37.0); MEAN PLATELET VOLUME 12.2 fl (9.6-12.3); MONO # 1.1 10*3/uL (0.1-1.0); MONO % 12.3 % (3.0-9.0); NEUT # 5.2 10*3/uL (2.3-7.9); NEUT % 58.3 % (47.0-73.0); PLATELET COUNT AUTOMATED 197 10*3/uL (130-400); RED BLOOD COUNT 5.65 10*6/uL (4.50-5.90); RED CELL DISTRI WIDTH 14.6 % (0-14.5)
[2020-10-08 10:44] LABS: ALBUMIN 4.2 gm/dl (3.1-4.5); BILIRUBIN, DIRECT 0.3 mg/dL (0.0-0.2); CREATININE 1.64 mg/dL (0.70-1.30); POTASSIUM 4.9 mmol/L (3.5-5.1); THYROXINE (T4) TOTAL 9.4 ug/dl (4.5-12.1); TOTAL PROTEIN 8.5 gm/dL (6.4-8.2)
[2020-10-08 10:51] LABS: THYROID STIM HORMONE (HS) 1.7 uIU/ml (0.358-4.75)
== END | disposition home or self-care (01) ==
LOC: LAB 09:23
PROVIDERS: ATTEND Family Medicine
DX: Z12.5 Encounter for screening for malignant neoplasm of prostate (principal); J44.9 Chronic obstructive pulmonary disease, unspecified; I42.9 Cardiomyopathy, unspecified; Z79.899 Other long term (current) drug therapy

== ENCOUNTER → 2020-10-23 | Outpatient (CLI) | payer MEDICARE | END | disposition home or self-care (01) | LOC: RAD 09:04 | PROVIDERS: ATTEND Family Medicine | DX: M25.751 Osteophyte, right hip (principal); I87.8 Other specified disorders of veins; M25.551 Pain in right hip ==

== ENCOUNTER 2020-12-11 09:46 | Inpatient (IN) | payer MEDICARE ==
[~2020-12-11] VITALS: Ht 173 cm; Wt 68.9 kg
[2020-12-11 09:53] VITALS: BP 115/71
[2020-12-11] MEDS ORDERED: AMLODIPINE BESYL5 MG PO (09:59)
[2020-12-11] MEDS ORDERED: QUINAPRIL40 MG PO (09:59)
[2020-12-11] MEDS ORDERED: LIPITOR40 MG PO (09:59)
[2020-12-11] MEDS ORDERED: IMDUR SA30 MG PO (10:00)
[2020-12-11] MEDS ORDERED: SYMB160 INH (10:00)
[2020-12-11] MEDS ORDERED: OXYGEN NAS (10:00)
[2020-12-11] MEDS ORDERED: ZETIA10 MG PO (10:01)
[2020-12-11 10:32] LABS: BASO # 0.1 10*3/uL (0.0-0.1); BASO % 0.6 % (0.0-1.0); EOS # 0.1 10*3/uL (0.0-0.4); EOS % 0.7 % (1.0-4.0); HEMATOCRIT 50.7 % (42.0-52.0); LYMPH # 1.4 10*3/uL (1.3-4.4); LYMPH % 11.5 % (27.0-41.0); MEAN CELL VOLUME 93.7 fl (80.0-94.0); MEAN CORPUSCULAR HGB 28.8 pg (27.0-31.0); MEAN CORPUSCULAR HGB CONC 30.8 g/dl (33.0-37.0); MONO # 1.2 10*3/uL (0.1-1.0); MONO % 10.1 % (3.0-9.0); NEUT % 76.7 % (47.0-73.0); PLATELET COUNT AUTOMATED 147 10*3/uL (130-400); RED BLOOD COUNT 5.41 10*6/uL (4.50-5.90); RED CELL DISTRI WIDTH 14.4 % (0-14.5); WHITE BLOOD COUNT 11.8 10*3/uL (4.8-10.8)
[2020-12-11 10:38] LABS: ABG BASE EXCESS 0.6 mmol/L (-2.0-2.0); ARTERIAL BLOOD GAS PH 7.243 (7.35-7.45); ARTERIAL BLOOD GAS PO2 312.8 (80-90)
[2020-12-11 10:48] LABS: ALKALINE PHOSPHATASE 103 U/L (45-117); BUN 40 mg/dl (7-24); CHLORIDE 103 mmol/L (98-107); CREATININE 1.32 mg/dL (0.70-1.30); POTASSIUM 4.8 mmol/L (3.5-5.1); SGOT/AST 12 IU/L (3-35); SGPT/ALT 21 U/L (12-78); SODIUM 139 mmol/L (136-145); TOTAL PROTEIN 8.2 gm/dL (6.4-8.2)
[2020-12-11 10:51] LABS: TROPONIN I < 0.015 ng/ml (<0.045)
[2020-12-11 13:32] VITALS: BP 97/51
[2020-12-11 14:30] VITALS: BP 112/56
[2020-12-11 16:00] VITALS: BP 94/45; BP 94/55
[2020-12-11 17:20] LABS: ABG BASE EXCESS 0.8 mmol/L (-2.0-2.0); ARTERIAL BLOOD GAS PH 7.304 (7.35-7.45); ARTERIAL BLOOD GAS PO2 117.6 (80-90)
[2020-12-11 20:00] VITALS: BP 93/51
[2020-12-12] VITALS (9 sets, daily range): BP systolic 81–118; BP diastolic 41–62
[2020-12-12 06:22] LABS: BASO % 0.2 % (0.0-1.0); HEMATOCRIT 45.9 % (42.0-52.0); LYMPH # 0.8 10*3/uL (1.3-4.4); LYMPH % 7.4 % (27.0-41.0); MEAN CELL VOLUME 93.3 fl (80.0-94.0); MEAN CORPUSCULAR HGB 28.5 pg (27.0-31.0); MEAN CORPUSCULAR HGB CONC 30.5 g/dl (33.0-37.0); MEAN PLATELET VOLUME 12.2 fl (9.6-12.3); MONO # 0.3 10*3/uL (0.1-1.0); MONO % 2.5 % (3.0-9.0); NEUT # 9.8 10*3/uL (2.3-7.9); NEUT % 89.4 % (47.0-73.0); PLATELET COUNT AUTOMATED 147 10*3/uL (130-400); RED BLOOD COUNT 4.92 10*6/uL (4.50-5.90); RED CELL DISTRI WIDTH 14.6 % (0-14.5); WHITE BLOOD COUNT 10.9 10*3/uL (4.8-10.8)
[2020-12-12 06:31] LABS: ALBUMIN 3.2 gm/dl (3.1-4.5); ALKALINE PHOSPHATASE 87 U/L (45-117); CHLORIDE 106 mmol/L (98-107); CREATININE 1.26 mg/dL (0.70-1.30); POTASSIUM 4.6 mmol/L (3.5-5.1); SGOT/AST 14 IU/L (3-35); SGPT/ALT 16 U/L (12-78); SODIUM 139 mmol/L (136-145); TOTAL PROTEIN 7.3 gm/dL (6.4-8.2)
[2020-12-12 06:42] LABS: BUN 53 mg/dl (7-24)
[2020-12-12 07:30] LABS: ABG BASE EXCESS 2.4 mmol/L (-2.0-2.0); ARTERIAL BLOOD GAS PH 7.358 (7.35-7.45); ARTERIAL BLOOD GAS PO2 73.4 (80-90)
[2020-12-13] VITALS: BP 80/44
[2020-12-13] MEDS ORDERED: PRAVASTATIN SOD10 MG PO (00:10)
[2020-12-13] MEDS ORDERED: METOPROLOL SUC200 M1 PO (00:10)
[2020-12-13] MEDS ORDERED: XARELTO15 M1 PO (00:10)
[2020-12-13] MEDS ORDERED: METFORMIN HYDR500 MG PO (00:11)
[2020-12-13] MEDS ORDERED: VENT7GM INH (00:11)
[2020-12-13] MEDS ORDERED: ENTRESTO 97 MG1 EACH PO (00:12)
[2020-12-13] MEDS ORDERED: TRELEGY ELLIPT1 EACH INH (00:13)
[2020-12-13 04:34] VITALS: BP 88/50
[2020-12-13 06:46] LABS: BASO % 0.1 % (0.0-1.0); HEMATOCRIT 43.8 % (42.0-52.0); LYMPH # 0.9 10*3/uL (1.3-4.4); LYMPH % 4.9 % (27.0-41.0); MEAN CELL VOLUME 94.6 fl (80.0-94.0); MEAN CORPUSCULAR HGB 28.5 pg (27.0-31.0); MEAN CORPUSCULAR HGB CONC 30.1 g/dl (33.0-37.0); MEAN PLATELET VOLUME 12.2 fl (9.6-12.3); MONO # 0.9 10*3/uL (0.1-1.0); NEUT # 15.7 10*3/uL (2.3-7.9); NEUT % 89.4 % (47.0-73.0); PLATELET COUNT AUTOMATED 157 10*3/uL (130-400); RED BLOOD COUNT 4.63 10*6/uL (4.50-5.90); RED CELL DISTRI WIDTH 14.6 % (0-14.5); WHITE BLOOD COUNT 17.6 10*3/uL (4.8-10.8)
[2020-12-13 07:01] LABS: ALBUMIN 3.3 gm/dl (3.1-4.5); CREATININE 1.71 mg/dL (0.70-1.30); POTASSIUM 5.1 mmol/L (3.5-5.1); TOTAL PROTEIN 6.8 gm/dL (6.4-8.2)
[2020-12-13 08:00] VITALS: BP 104/54
[2020-12-13 10:22] LABS: ABG BASE EXCESS 1.4 mmol/L (-2.0-2.0); ARTERIAL BLOOD GAS PH 7.384 (7.35-7.45); ARTERIAL BLOOD GAS PO2 60.9 (80-90)
[2020-12-13 12:00] VITALS: BP 100/50
[2020-12-13 16:00] VITALS: BP 88/47
[2020-12-13 20:00] VITALS: BP 114/57
[2020-12-14] VITALS: BP 103/50
[2020-12-14 06:12] LABS: HEMATOCRIT 42.9 % (42.0-52.0); MEAN CELL VOLUME 93.5 fl (80.0-94.0); MEAN PLATELET VOLUME 12.5 fl (9.6-12.3); PLATELET COUNT AUTOMATED 176 10*3/uL (130-400); RED BLOOD COUNT 4.59 10*6/uL (4.50-5.90); RED CELL DISTRI WIDTH 14.7 % (0-14.5); WHITE BLOOD COUNT 17.3 10*3/uL (4.8-10.8)
[2020-12-14 06:34] LABS: CHLORIDE 109 mmol/L (98-107); POTASSIUM 4.4 mmol/L (3.5-5.1); SODIUM 142 mmol/L (136-145)
[2020-12-14 06:37] LABS: BUN 57 mg/dl (7-24)
[2020-12-14 07:02] LABS: PLATELET SUFFICIENCY NORMAL (NORMAL); TOTAL CELLS COUNTED 100 #CELLS
[2020-12-14 08:00] VITALS: BP 108/58
[2020-12-14 12:00] VITALS: BP 118/57
[2020-12-14 16:00] VITALS: BP 109/51
[2020-12-14 20:00] VITALS: BP 114/47
[2020-12-15] VITALS: BP 95/49
[2020-12-15 05:35] LABS: CHLORIDE 110 mmol/L (98-107); POTASSIUM 4.6 mmol/L (3.5-5.1); SODIUM 141 mmol/L (136-145)
[2020-12-15 05:39] LABS: BUN 45 mg/dl (7-24)
[2020-12-15 06:09] LABS: BASO % 0.1 % (0.0-1.0); HEMATOCRIT 44.3 % (42.0-52.0); LYMPH # 0.6 10*3/uL (1.3-4.4); MEAN CELL VOLUME 95.9 fl (80.0-94.0); MEAN CORPUSCULAR HGB 28.8 pg (27.0-31.0); MONO # 0.9 10*3/uL (0.1-1.0); MONO % 6.3 % (3.0-9.0); NEUT # 12.5 10*3/uL (2.3-7.9); NEUT % 88.7 % (47.0-73.0); PLATELET COUNT AUTOMATED 168 10*3/uL (130-400); RED BLOOD COUNT 4.62 10*6/uL (4.50-5.90); RED CELL DISTRI WIDTH 14.6 % (0-14.5); WHITE BLOOD COUNT 14.1 10*3/uL (4.8-10.8)
[2020-12-15 08:00] VITALS: BP 120/68
[2020-12-15] MEDS ORDERED: METOPROLOL SUCC50 M1 PO (11:24)
[2020-12-15] MEDS ORDERED: PREDNISONE10 MG PO (11:24)
[2020-12-15] MEDS ORDERED: XARE20MG PO (11:24)
[2020-12-15] MEDS ORDERED: ZITHROMAX250 MG PO (11:25)
[2020-12-15 12:00] VITALS: BP 105/59
== END 2020-12-15 13:45 | disposition home or self-care (01) | DRG 871 ==
LOC: ED 09:46 → 4E 11:23 → EDHOLD 11:23 → 4E 13:03
PROVIDERS: Emergency Medicine; Internal Medicine; Internal Medicine Critical Care Medicine; Registered Nurse; ADMIT Family Medicine; ATTEND Family Medicine
PROC: 5A09357 Assistance with Respiratory Ventilation, Less than 24 Consecutive Hours, Continuous Positive Airway Pressure (ICD-10-PCS; principal; 2020-12-11)
PROC: 5A09357 Assistance with Respiratory Ventilation, Less than 24 Consecutive Hours, Continuous Positive Airway Pressure (ICD-10-PCS; 2020-12-12)
PROC: 5A09357 Assistance with Respiratory Ventilation, Less than 24 Consecutive Hours, Continuous Positive Airway Pressure (ICD-10-PCS; 2020-12-13)
PROC: 5A09357 Assistance with Respiratory Ventilation, Less than 24 Consecutive Hours, Continuous Positive Airway Pressure (ICD-10-PCS; 2020-12-14)
PROC: 5A09357 Assistance with Respiratory Ventilation, Less than 24 Consecutive Hours, Continuous Positive Airway Pressure (ICD-10-PCS; 2020-12-15)
DX: A41.9 Sepsis, unspecified organism (principal); J18.9 Pneumonia, unspecified organism; J96.22 Acute and chronic respiratory failure with hypercapnia; J96.21 Acute and chronic respiratory failure with hypoxia; J44.1 Chronic obstructive pulmonary disease with (acute) exacerbation; I48.11 Longstanding persistent atrial fibrillation; I42.8 Other cardiomyopathies; I38 Endocarditis, valve unspecified; N17.9 Acute kidney failure, unspecified; I50.20 Unspecified systolic (congestive) heart failure; J44.0 Chronic obstructive pulmonary disease with (acute) lower respiratory infection; N18.30 Chronic kidney disease, stage 3 unspecified; I25.10 Atherosclerotic heart disease of native coronary artery without angina pectoris; K21.9 Gastro-esophageal reflux disease without esophagitis; I27.20 Pulmonary hypertension, unspecified; E78.5 Hyperlipidemia, unspecified; E11.22 Type 2 diabetes mellitus with diabetic chronic kidney disease; R65.20 Severe sepsis without septic shock; E11.65 Type 2 diabetes mellitus with hyperglycemia; I95.9 Hypotension, unspecified; E55.9 Vitamin D deficiency, unspecified; I25.2 Old myocardial infarction; Z95.0 Presence of cardiac pacemaker; Z80.0 Family history of malignant neoplasm of digestive organs; Z80.3 Family history of malignant neoplasm of breast

== ENCOUNTER → 2021-02-07 | Outpatient (CLI) | payer MEDICARE ==
[~2021-02-07] MED LIST changes: +AMLODIPINE BESYL5 MG PO; +IMDUR SA30 MG PO; +LIPITOR40 MG PO; +METOPROLOL SUC200 M1 PO; +METOPROLOL SUCC50 M1 PO; +OXYGEN NAS; +QUINAPRIL40 MG PO; +SYMB160 INH; +VENT7GM INH; +XARELTO15 M1 PO; +ZETIA10 MG PO; +ZITHROMAX250 MG PO
[2021-02-07 08:45] LABS: BASO # 0.1 10*3/uL (0.0-0.1); BASO % 0.8 % (0.0-1.0); EOS # 0.7 10*3/uL (0.0-0.4); EOS % 7.5 % (1.0-4.0); HEMATOCRIT 44.8 % (42.0-52.0); LYMPH # 2.8 10*3/uL (1.3-4.4); LYMPH % 29.3 % (27.0-41.0); MEAN CELL VOLUME 94.7 fl (80.0-94.0); MEAN CORPUSCULAR HGB 28.8 pg (27.0-31.0); MEAN CORPUSCULAR HGB CONC 30.4 g/dl (33.0-37.0); MEAN PLATELET VOLUME 11.9 fl (9.6-12.3); MONO # 1.2 10*3/uL (0.1-1.0); MONO % 12.8 % (3.0-9.0); NEUT # 4.6 10*3/uL (2.3-7.9); NEUT % 49.2 % (47.0-73.0); PLATELET COUNT AUTOMATED 148 10*3/uL (130-400); RED BLOOD COUNT 4.73 10*6/uL (4.50-5.90); RED CELL DISTRI WIDTH 14.6 % (0-14.5); WHITE BLOOD COUNT 9.5 10*3/uL (4.8-10.8)
[2021-02-07 09:04] LABS: BUN 24 mg/dl (7-24); CHLORIDE 108 mmol/L (98-107); CREATININE 1.29 mg/dL (0.70-1.30); POTASSIUM 4.4 mmol/L (3.5-5.1); SODIUM 142 mmol/L (136-145)
[2021-02-07 09:08] LABS: CHOLESTEROL 160 mg/dL (<200); LDL CHOLESTEROL 100 mg/dL (9-159); TRIGLYCERIDES 80 mg/dl (<150)
[2021-02-07 09:22] LABS: ALBUMIN 3.4 gm/dl (3.1-4.5); TOTAL PROTEIN 7.5 gm/dL (6.4-8.2)
== END | disposition home or self-care (01) ==
LOC: LAB 08:26
PROVIDERS: Internal Medicine Cardiovascular Disease; ATTEND Family Medicine
DX: E11.9 Type 2 diabetes mellitus without complications (principal); E78.5 Hyperlipidemia, unspecified; I42.9 Cardiomyopathy, unspecified; I51.9 Heart disease, unspecified

== ENCOUNTER → 2021-02-28 | Outpatient (CLI) | payer MEDICARE | END | disposition home or self-care (01) | LOC: COVID19 15:59 | PROVIDERS: ATTEND Podiatrist Foot & Ankle Surgery | DX: Z11.52 Encounter for screening for COVID-19 (principal) ==

== ENCOUNTER → 2021-08-15 | Outpatient (CLI) | payer MEDICARE ==
[2021-08-15 12:26] LABS: BASO # 0.1 10*3/uL (0.0-0.1); BASO % 1.3 % (0.0-1.0); EOS # 0.6 10*3/uL (0.0-0.4); EOS % 7.4 % (1.0-4.0); HEMATOCRIT 45.7 % (42.0-52.0); LYMPH # 1.9 10*3/uL (1.3-4.4); LYMPH % 22.1 % (27.0-41.0); MEAN CELL VOLUME 92.7 fl (80.0-94.0); MEAN CORPUSCULAR HGB 29.2 pg (27.0-31.0); MEAN CORPUSCULAR HGB CONC 31.5 g/dl (33.0-37.0); MEAN PLATELET VOLUME 12.1 fl (9.6-12.3); MONO # 1.1 10*3/uL (0.1-1.0); MONO % 13.1 % (3.0-9.0); NEUT # 4.8 10*3/uL (2.3-7.9); NEUT % 55.8 % (47.0-73.0); PLATELET COUNT AUTOMATED 185 10*3/uL (130-400); RED BLOOD COUNT 4.93 10*6/uL (4.50-5.90); RED CELL DISTRI WIDTH 14.4 % (0-14.5); WHITE BLOOD COUNT 8.7 10*3/uL (4.8-10.8)
[2021-08-15 12:44] LABS: ALKALINE PHOSPHATASE 110 U/L (45-117); BUN 27 mg/dl (7-24); CHLORIDE 105 mmol/L (98-107); CREATININE 1.33 mg/dL (0.70-1.30); POTASSIUM 4.2 mmol/L (3.5-5.1); SGOT/AST 15 IU/L (3-35); SGPT/ALT 20 U/L (12-78); SODIUM 142 mmol/L (136-145)
== END | disposition home or self-care (01) ==
LOC: LAB 11:44
PROVIDERS: Family Medicine; ATTEND Internal Medicine Cardiovascular Disease
DX: E11.9 Type 2 diabetes mellitus without complications (principal); I42.9 Cardiomyopathy, unspecified

== ENCOUNTER → 2021-12-22 | Outpatient (CLI) | payer MEDICARE ==
[2021-12-22 11:55] LABS: BUN 24 mg/dl (7-24); CHLORIDE 105 mmol/L (98-107); POTASSIUM 4.7 mmol/L (3.5-5.1); SODIUM 142 mmol/L (136-145)
== END ==
LOC: LAB 10:22
PROVIDERS: ATTEND Internal Medicine Cardiovascular Disease
DX: I42.9 Cardiomyopathy, unspecified (principal)

== ENCOUNTER 2023-09-20 07:27 | Inpatient (IN) | payer MEDICARE ==
[~2023-09-20] VITALS: Ht 170.1 cm; Wt 66.7 kg
[~2023-09-20 07:27] MED LIST changes: +DOXYCYCLINE HY100 M3 PO; +ENTRESTO 49 MG1 EACH PO; +FUROSEMIDE20 M1 PO; +FUROSEMIDE40 MG PO; +JARDIANCE10 MG PO; +K-TAB20 MEQ PO; +Metoprolol Suc200 MG PO; +OMNICEF300 MG PO; +POTASSIUM CHLO20 ME3 PO; +VITAMIN D350 MCG PO
[2023-09-20 07:38] VITALS: BP 99/58
[2023-09-20 07:47] LABS: BASO # 0.1 10*3/uL (0.0-0.1); BASO % 0.9 % (0.0-1.0); EOS # 0.3 10*3/uL (0.0-0.4); EOS % 2.6 % (1.0-4.0); HEMATOCRIT 42.9 % (42.0-52.0); LYMPH # 2.3 10*3/uL (1.3-4.4); MEAN CELL VOLUME 98.2 fl (80.0-94.0); MEAN CORPUSCULAR HGB 28.1 pg (27.0-31.0); MEAN CORPUSCULAR HGB CONC 28.7 g/dl (33.0-37.0); MEAN PLATELET VOLUME 11.3 fl (9.6-12.3); MONO # 1.2 10*3/uL (0.1-1.0); MONO % 10.6 % (3.0-9.0); NEUT # 7.5 10*3/uL (2.3-7.9); PLATELET COUNT AUTOMATED 321 10*3/uL (130-400); RED BLOOD COUNT 4.37 10*6/uL (4.50-5.90); RED CELL DISTRI WIDTH 14.3 % (0-14.5); WHITE BLOOD COUNT 11.5 10*3/uL (4.8-10.8)
[2023-09-20 07:58] LABS: ACT PARTIAL THROMBO TIME 28.8 SECONDS (20.0-32.1)
[2023-09-20 08:15] LABS: ALKALINE PHOSPHATASE 112 U/L (46-116); BUN 21 mg/dl (9-23); CHLORIDE 102 mmol/L (98-107); LIPASE 27 U/L (12-53); POTASSIUM 4.5 mmol/L (3.4-5.1); TOTAL PROTEIN 7.8 gm/dL (6.0-8.0)
[2023-09-20 08:39] LABS: SGPT/ALT < 7 U/L (5-49)
[2023-09-20] MEDS ORDERED: FUROSEMIDE 40 MG/4 ML VIAL IV ONE (08:45)
[2023-09-20] MEDS ORDERED: methylPREDNISolone sod succ 125 MG VIAL IV ONE (08:50)
[2023-09-20 09:28] LABS: ABG BASE EXCESS 5.4 mmol/L (-2.0-2.0); ARTERIAL BLOOD GAS PH 7.385 (7.35-7.45)
[2023-09-20] MEDS ORDERED: Magnesium Hydroxide 30 ML UDC PO PRN (11:55)
[2023-09-20] MEDS ORDERED: ACETAMINOPHEN 325 MG TAB PO PRN (11:55)
[2023-09-20] MEDS ORDERED: ACETAMINOPHEN 650 MG SUPP R PRN (11:55)
[2023-09-20] MEDS ORDERED: BISACODYL 10 MG SUPP R PRN (11:55)
[2023-09-20] MEDS ORDERED: Acetaminophen/Hydrocodone 5 MG/325 MG TABLET PO PRN (11:55)
[2023-09-20] MEDS ORDERED: Ondansetron Hydrochloride 4 MG/2 ML VIAL IV PRN (11:55)
[2023-09-20] MEDS ORDERED: BISACODYL 5 MG TAB PO PRN (11:55)
[2023-09-20] MEDS ORDERED: DEXTROSE 10 % IN WATER 250 ML IV PRN (13:05)
[2023-09-20] MEDS ORDERED: INSULIN LISPRO 1 UNIT/0.01 ML SQ SCH (16:30)
[2023-09-20] MEDS ORDERED: AZITHROMYCIN 250 ML IV SCH (17:00)
[2023-09-20] MEDS ORDERED: methylPREDNISolone sod succ 40 MG VIAL IV SCH (18:00)
[2023-09-20] MEDS ORDERED: FUROSEMIDE 40 MG/4 ML VIAL IV SCH (18:00)
[2023-09-20 19:26] VITALS: BP 97/57
[2023-09-21] VITALS (8 sets, daily range): BP systolic 94–112; BP diastolic 55–68
[2023-09-21 07:43] LABS: ALKALINE PHOSPHATASE 101 U/L (46-116); BUN 24 mg/dl (9-23); CHLORIDE 99 mmol/L (98-107); POTASSIUM 4.1 mmol/L (3.4-5.1); TOTAL PROTEIN 7.4 gm/dL (6.0-8.0)
[2023-09-21 07:44] LABS: SGPT/ALT < 7 U/L (5-49)
[2023-09-21 07:46] LABS: BASO % 0.3 % (0.0-1.0); HEMATOCRIT 41.3 % (42.0-52.0); LYMPH # 1.5 10*3/uL (1.3-4.4); LYMPH % 10.5 % (27.0-41.0); MEAN CELL VOLUME 96.3 fl (80.0-94.0); MEAN CORPUSCULAR HGB CONC 29.1 g/dl (33.0-37.0); MEAN PLATELET VOLUME 11.7 fl (9.6-12.3); MONO # 0.7 10*3/uL (0.1-1.0); MONO % 4.9 % (3.0-9.0); NEUT # 12.2 10*3/uL (2.3-7.9); NEUT % 83.7 % (47.0-73.0); PLATELET COUNT AUTOMATED 308 10*3/uL (130-400); RED BLOOD COUNT 4.29 10*6/uL (4.50-5.90); RED CELL DISTRI WIDTH 14.2 % (0-14.5); WHITE BLOOD COUNT 14.6 10*3/uL (4.8-10.8)
[2023-09-21] MEDS ORDERED: SACUBITRIL/VALSARTAN 49 MG-51 MG TABLET PO SCH (10:00)
[2023-09-21] MEDS ORDERED: METOPROLOL SUCCINATE XR 100 MG TAB PO SCH (10:00)
[2023-09-21] MEDS ORDERED: RIVAROXABAN 15 MG TAB PO SCH (10:00)
[2023-09-21] MEDS ORDERED: METOPROLOL SUCCINATE XR 25 MG TAB PO SCH (10:25)
[2023-09-21] MEDS ORDERED: EMPAGLIFLOZIN 10 MG TABLET PO SCH (22:00)
[2023-09-21] MEDS ORDERED: ATORVASTATIN CALCIUM 10 MG TAB PO SCH (22:00)
[2023-09-22] VITALS: BP 94/50
[2023-09-22 06:26] LABS: BASO % 0.1 % (0.0-1.0); HEMATOCRIT 36.9 % (42.0-52.0); LYMPH # 1.2 10*3/uL (1.3-4.4); LYMPH % 5.9 % (27.0-41.0); MEAN CELL VOLUME 94.9 fl (80.0-94.0); MEAN CORPUSCULAR HGB 28.5 pg (27.0-31.0); MEAN CORPUSCULAR HGB CONC 30.1 g/dl (33.0-37.0); MEAN PLATELET VOLUME 11.9 fl (9.6-12.3); MONO # 1.1 10*3/uL (0.1-1.0); MONO % 5.5 % (3.0-9.0); NEUT # 17.6 10*3/uL (2.3-7.9); NEUT % 87.9 % (47.0-73.0); PLATELET COUNT AUTOMATED 279 10*3/uL (130-400); RED BLOOD COUNT 3.89 10*6/uL (4.50-5.90); RED CELL DISTRI WIDTH 14.3 % (0-14.5); WHITE BLOOD COUNT 20.1 10*3/uL (4.8-10.8)
[2023-09-22 06:40] LABS: CHLORIDE 98 mmol/L (98-107); POTASSIUM 4.6 mmol/L (3.4-5.1)
[2023-09-22 06:42] LABS: BUN 37 mg/dl (9-23)
[2023-09-22 08:00] VITALS: BP 116/57
[2023-09-22 12:00] VITALS: BP 105/54
[2023-09-22] MEDS ORDERED: LASIX40 MG PO (12:01)
[2023-09-22] MEDS ORDERED: ZITHROMAX250 MG PO (12:01)
[2023-09-22] MEDS ORDERED: METOPROLOL SUCC25 M2 PO (12:01)
[2023-09-22] MEDS ORDERED: PREDNISONE10 MG PO (12:01)
== END 2023-09-22 12:39 | disposition home or self-care (01) | DRG 291 ==
LOC: ED 07:27 → EDHOLD 10:15 → 4E 09-21 14:14
PROVIDERS: Internal Medicine; Student in an Organized Health Care Education/Training Program; ADMIT Internal Medicine; ATTEND Internal Medicine
PROC: 5A09357 Assistance with Respiratory Ventilation, Less than 24 Consecutive Hours, Continuous Positive Airway Pressure (ICD-10-PCS; principal; 2023-09-20)
PROC: 5A09357 Assistance with Respiratory Ventilation, Less than 24 Consecutive Hours, Continuous Positive Airway Pressure (ICD-10-PCS; 2023-09-21)
PROC: 5A09357 Assistance with Respiratory Ventilation, Less than 24 Consecutive Hours, Continuous Positive Airway Pressure (ICD-10-PCS; 2023-09-22)
DX: I13.0 Hypertensive heart and chronic kidney disease with heart failure and stage 1 through stage 4 chronic kidney disease, or unspecified chronic kidney disease (principal); I50.23 Acute on chronic systolic (congestive) heart failure; J96.02 Acute respiratory failure with hypercapnia; J96.01 Acute respiratory failure with hypoxia; J44.1 Chronic obstructive pulmonary disease with (acute) exacerbation; K21.9 Gastro-esophageal reflux disease without esophagitis; I25.10 Atherosclerotic heart disease of native coronary artery without angina pectoris; E11.22 Type 2 diabetes mellitus with diabetic chronic kidney disease; N18.30 Chronic kidney disease, stage 3 unspecified; E78.5 Hyperlipidemia, unspecified; D72.829 Elevated white blood cell count, unspecified; D53.9 Nutritional anemia, unspecified; E11.65 Type 2 diabetes mellitus with hyperglycemia; I27.20 Pulmonary hypertension, unspecified; I45.10 Unspecified right bundle-branch block; I07.1 Rheumatic tricuspid insufficiency; I48.0 Paroxysmal atrial fibrillation; I42.8 Other cardiomyopathies; J98.4 Other disorders of lung; Z95.0 Presence of cardiac pacemaker; Z79.899 Other long term (current) drug therapy; Z79.01 Long term (current) use of anticoagulants; Z79.2 Long term (current) use of antibiotics; Z87.891 Personal history of nicotine dependence; I25.2 Old myocardial infarction; Z80.8 Family history of malignant neoplasm of other organs or systems; Z80.3 Family history of malignant neoplasm of breast

== ENCOUNTER 2024-01-11 16:42 | Emergency (ER) | payer MEDICARE ==
[~2024-01-11] VITALS: Wt 60.3 kg
[~2024-01-11 16:42] MED LIST changes: +AEROECLIPSE II1 EACH MC; +ALDACTONE25 MG PO; +BUMETANIDE2 MG PO; +Ipratropium Brom3 ML NEB; +LASIX40 MG PO; +METOPROLOL SUCC25 M2 PO; +METOPROLOL TAR100 M1 PO; +MIDODRINE HCL5 M1 PO; +MUCINEX1200 M1 PO; +VALACYCLOVIR500 M1 PO; +VIBRAMYCIN HYC100 MG PO
[2024-01-11] MEDS ORDERED: TRAMADOL HCL50 MG PO (18:20)
== END 2024-01-11 18:28 | disposition home or self-care (01) ==
LOC: ED 16:42
DX: M25.551 Pain in right hip (principal); J44.9 Chronic obstructive pulmonary disease, unspecified; I25.10 Atherosclerotic heart disease of native coronary artery without angina pectoris; I25.2 Old myocardial infarction; I50.9 Heart failure, unspecified; I48.91 Unspecified atrial fibrillation; F17.200 Nicotine dependence, unspecified, uncomplicated; Z98.890 Other specified postprocedural states; W01.0XXA Fall on same level from slipping, tripping and stumbling without subsequent striking against object, initial encounter

== ENCOUNTER 2024-01-13 13:03 | Inpatient (IN) | payer MEDICARE ==
[2024-01-13] VITALS (12 sets, daily range): BP systolic 52–83; BP diastolic 32–50
[~2024-01-13] VITALS: Ht 170.2 cm; Wt 59.6 kg
[~2024-01-13 13:03] MED LIST changes: +TRAMADOL HCL50 MG PO
[2024-01-13 13:44] LABS: HEMATOCRIT 35.4 % (42.0-52.0); MEAN CELL VOLUME 90.1 fl (80.0-94.0); MEAN CORPUSCULAR HGB 28.5 pg (27.0-31.0); MEAN CORPUSCULAR HGB CONC 31.6 g/dl (33.0-37.0); MEAN PLATELET VOLUME 12.1 fl (9.6-12.3); PLATELET COUNT AUTOMATED 215 10*3/uL (130-400); RED BLOOD COUNT 3.93 10*6/uL (4.50-5.90); RED CELL DISTRI WIDTH 14.8 % (0-14.5); WHITE BLOOD COUNT 11.2 10*3/uL (4.8-10.8)
[2024-01-13 13:50] LABS: MANUAL DIFF REFLEX YES
[2024-01-13 14:07] LABS: BASOPHILS 1 % (0-1); TOTAL CELLS COUNTED 100 #CELLS
[2024-01-13 14:08] LABS: PLATELET SUFFICIENCY NORMAL (NORMAL)
[2024-01-13 14:19] LABS: ACT PARTIAL THROMBO TIME 35.3 SECONDS (20.0-32.1)
[2024-01-13 14:47] LABS: POTASSIUM 5.3 mmol/L (3.4-5.1); TOTAL PROTEIN 6.9 gm/dL (6.0-8.0)
[2024-01-13] MEDS ORDERED: SODIUM CHLORIDE 0.9% 250 ML IV ONE (15:05)
[2024-01-13] MEDS ORDERED: SODIUM POLYSTYRENE SULFONATE 15 GM/60 ML BOT PO ONE (15:45)
[2024-01-13] MEDS ORDERED: BISACODYL 5 MG TAB PO PRN (17:15)
[2024-01-13] MEDS ORDERED: Magnesium Hydroxide 30 ML UDC PO PRN (17:15)
[2024-01-13] MEDS ORDERED: ACETAMINOPHEN 325 MG TAB PO PRN (17:15)
[2024-01-13] MEDS ORDERED: Acetaminophen/Hydrocodone 5 MG/325 MG TABLET PO PRN (17:15)
[2024-01-13] MEDS ORDERED: BISACODYL 10 MG SUPP R PRN (17:15)
[2024-01-13] MEDS ORDERED: ACETAMINOPHEN 650 MG SUPP R PRN (17:15)
[2024-01-13] MEDS ORDERED: Ondansetron Hydrochloride 4 MG/2 ML VIAL IV PRN (17:15)
[2024-01-13] MEDS ORDERED: Albuterol Sulf/Ipratropium 3 ML VIAL NEB SCH (17:25)
[2024-01-13] MEDS ORDERED: SODIUM CHLORIDE 0.9% 1,000 ML IV ONE (17:40)
[2024-01-13] MEDS ORDERED: methylPREDNISolone sod succ 40 MG VIAL IV SCH (18:00)
[2024-01-13] MEDS ORDERED: Ceftriaxone Sodium 1 GM in SYRINGE INFUSION 10 ML IV SCH (18:00)
[2024-01-13] MEDS ORDERED: AZITHROMYCIN 250 ML IV SCH (18:00)
[2024-01-13] MEDS ORDERED: GUAIFENESIN 600 MG TAB ER PO SCH (22:00)
[2024-01-13] MEDS ORDERED: HEPARIN SODIUM 5,000 UNIT/ML VIAL SC SCH (22:00)
[2024-01-14] VITALS: BP 97/50
[2024-01-14] MEDS ORDERED: HEEL PROTECTOR DEVICE ONE (04:17)
[2024-01-14 05:58] LABS: BASO % 0.1 % (0.0-1.0); HEMATOCRIT 31.4 % (42.0-52.0); LYMPH # 1.1 10*3/uL (1.3-4.4); LYMPH % 13.1 % (27.0-41.0); MEAN CELL VOLUME 91.5 fl (80.0-94.0); MEAN CORPUSCULAR HGB 27.7 pg (27.0-31.0); MEAN CORPUSCULAR HGB CONC 30.3 g/dl (33.0-37.0); MEAN PLATELET VOLUME 12.5 fl (9.6-12.3); MONO # 0.2 10*3/uL (0.1-1.0); MONO % 2.8 % (3.0-9.0); NEUT # 6.9 10*3/uL (2.3-7.9); PLATELET COUNT AUTOMATED 207 10*3/uL (130-400); RED BLOOD COUNT 3.43 10*6/uL (4.50-5.90); RED CELL DISTRI WIDTH 14.6 % (0-14.5); WHITE BLOOD COUNT 8.3 10*3/uL (4.8-10.8)
[2024-01-14 06:56] LABS: POTASSIUM 5.2 mmol/L (3.4-5.1)
[2024-01-14 08:00] VITALS: BP 85/46
[2024-01-14] MEDS ORDERED: Midodrine Hydrochloride 5 MG TAB PO SCH ×2 (08:00→12:00)
[2024-01-14 08:16] LABS: BILIRUBIN Negative (Negative); BLOOD Negative (Negative); CLARITY Clear (Clear); COLOR Yellow (Yellow); GLUCOSE 2+ (Negative); KETONE Negative (Negative); LEUKO ESTERASE Negative (Negative); NITRITE Negative (Negative); SPECIFIC GRAVITY 1.015 (1.001-1.030)
[2024-01-14 08:31] LABS: RBC 0-2 rbc/hpf (0-2)
[2024-01-14] MEDS ORDERED: METOPROLOL SUCCINATE XR 100 MG TAB PO SCH (10:00)
[2024-01-14] MEDS ORDERED: AQUAPHOR OINTMENT Base 50 GM TUBE T SCH (10:00)
[2024-01-14] MEDS ORDERED: SPIRONOLACTONE 25 MG TAB PO SCH (10:00)
[2024-01-14] MEDS ORDERED: SACUBITRIL/VALSARTAN 49 MG-51 MG TABLET PO SCH (10:00)
[2024-01-14] MEDS ORDERED: SODIUM CHLORIDE 0.9% 1,000 ML IV SCH ×2 (11:35→13:00)
[2024-01-14] MEDS ORDERED: SODIUM POLYSTYRENE SULFONATE 15 GM/60 ML BOT PO ONE (11:35)
[2024-01-14] MEDS ORDERED: FOAM BANDAGE 1 EACH BANDAGE T ONE (11:40)
[2024-01-14 12:00] VITALS: BP 91/54
[2024-01-14 16:00] VITALS: BP 93/52
[2024-01-14 20:00] VITALS: BP 84/52
[2024-01-14] MEDS ORDERED: EMPAGLIFLOZIN 10 MG TABLET PO SCH (22:00)
[2024-01-14] MEDS ORDERED: ATORVASTATIN CALCIUM 10 MG TAB PO SCH (22:00)
[2024-01-14] MEDS ORDERED: PRAVASTATIN SODIUM 10 MG TAB PO SCH (22:00)
[2024-01-15] VITALS: BP 95/51
[2024-01-15 06:08] LABS: BASO % 0.1 % (0.0-1.0); HEMATOCRIT 29.9 % (42.0-52.0); LYMPH # 0.6 10*3/uL (1.3-4.4); LYMPH % 5.7 % (27.0-41.0); MEAN CORPUSCULAR HGB 27.7 pg (27.0-31.0); MEAN CORPUSCULAR HGB CONC 30.1 g/dl (33.0-37.0); MEAN PLATELET VOLUME 12.4 fl (9.6-12.3); MONO # 0.5 10*3/uL (0.1-1.0); MONO % 4.3 % (3.0-9.0); NEUT # 9.6 10*3/uL (2.3-7.9); NEUT % 89.4 % (47.0-73.0); PLATELET COUNT AUTOMATED 216 10*3/uL (130-400); RED BLOOD COUNT 3.25 10*6/uL (4.50-5.90); RED CELL DISTRI WIDTH 14.8 % (0-14.5); WHITE BLOOD COUNT 10.8 10*3/uL (4.8-10.8)
[2024-01-15 06:31] LABS: POTASSIUM 3.8 mmol/L (3.4-5.1)
[2024-01-15 08:00] VITALS: BP 113/64
[2024-01-15 12:00] VITALS: BP 117/56
[2024-01-15] MEDS ORDERED: SODIUM CHLORIDE 0.9% 1,000 ML IV ONE (14:05)
[2024-01-15 16:00] VITALS: BP 119/48
[2024-01-15 20:00] VITALS: BP 120/79
[2024-01-16] VITALS: BP 132/66
[2024-01-16 08:00] VITALS: BP 137/58
[2024-01-16 11:37] VITALS: BP 121/78
[2024-01-16 13:42] LABS: POTASSIUM 3.6 mmol/L (3.4-5.1)
[2024-01-16 16:00] VITALS: BP 144/71
[2024-01-16 20:00] VITALS: BP 147/20
[2024-01-16 20:30] VITALS: BP 144/68
[2024-01-17] VITALS: BP 142/76
[2024-01-17 06:55] LABS: BASO % 0.1 % (0.0-1.0); HEMATOCRIT 29.9 % (42.0-52.0); LYMPH # 0.5 10*3/uL (1.3-4.4); LYMPH % 4.6 % (27.0-41.0); MEAN CELL VOLUME 95.2 fl (80.0-94.0); MEAN CORPUSCULAR HGB CONC 29.4 g/dl (33.0-37.0); MEAN PLATELET VOLUME 12.1 fl (9.6-12.3); MONO # 0.6 10*3/uL (0.1-1.0); NEUT # 9.4 10*3/uL (2.3-7.9); NEUT % 88.8 % (47.0-73.0); PLATELET COUNT AUTOMATED 212 10*3/uL (130-400); RED BLOOD COUNT 3.14 10*6/uL (4.50-5.90); RED CELL DISTRI WIDTH 15.2 % (0-14.5); WHITE BLOOD COUNT 10.5 10*3/uL (4.8-10.8)
[2024-01-17 07:18] LABS: POTASSIUM 3.7 mmol/L (3.4-5.1)
[2024-01-17 08:00] VITALS: BP 142/76
[2024-01-17 12:00] VITALS: BP 133/66
[2024-01-17 16:00] VITALS: BP 103/81
[2024-01-17 20:00] VITALS: BP 124/69
[2024-01-18] VITALS: BP 142/67
[2024-01-18] MEDS ORDERED: LORazepam 0.5 MG TAB PO ONE ×2 (05:35→09:35)
[2024-01-18 06:24] LABS: BASO % 0.1 % (0.0-1.0); HEMATOCRIT 31.4 % (42.0-52.0); LYMPH # 0.4 10*3/uL (1.3-4.4); LYMPH % 3.6 % (27.0-41.0); MEAN CORPUSCULAR HGB 28.4 pg (27.0-31.0); MEAN CORPUSCULAR HGB CONC 30.3 g/dl (33.0-37.0); MONO # 0.7 10*3/uL (0.1-1.0); MONO % 6.3 % (3.0-9.0); NEUT # 9.4 10*3/uL (2.3-7.9); NEUT % 89.3 % (47.0-73.0); NUCLEATED RED BLOOD CELL 0.2 % (0.0-0.0); PLATELET COUNT AUTOMATED 230 10*3/uL (130-400); RED BLOOD COUNT 3.34 10*6/uL (4.50-5.90); RED CELL DISTRI WIDTH 15.3 % (0-14.5); WHITE BLOOD COUNT 10.5 10*3/uL (4.8-10.8)
[2024-01-18 06:33] LABS: POTASSIUM 4.2 mmol/L (3.4-5.1)
[2024-01-18 08:00] VITALS: BP 148/91
[2024-01-18] MEDS ORDERED: LORazepam 2 MG/ML VIAL IV ONE (09:40)
[2024-01-18] MEDS ORDERED: Water, Sterile 10 ML VIAL ONE (10:10)
[2024-01-18 12:00] VITALS: BP 154/83
[2024-01-18 16:00] VITALS: BP 126/77
[2024-01-18 20:00] VITALS: BP 125/82
[2024-01-19] VITALS: BP 121/75
[2024-01-19 08:00] VITALS: BP 143/84
[2024-01-19] MEDS ORDERED: Albuterol Sulf/Ipratropium 3 ML VIAL NEB PRN (10:10)
[2024-01-19] MEDS ORDERED: LORazepam 2 MG/ML VIAL IV SCH (10:10)
[2024-01-19] MEDS ORDERED: MORPHINE Sulfate 2 MG/ML SYR IV PRN (10:10)
[2024-01-19] MEDS ORDERED: MORPHINE Sulfate 2 MG/ML SYR IV SCH (12:00)
[2024-01-19] MEDS ORDERED: MORPHINE Sulfate 2 MG/ML SYR IV ONE (12:45)
== END 2024-01-19 13:12 | disposition hospice, inpatient (51) | DRG 682 ==
LOC: ED 13:03 → 4E 16:38
PROVIDERS: Emergency Medicine; Registered Nurse; Student in an Organized Health Care Education/Training Program; ADMIT Internal Medicine; ATTEND Internal Medicine
PROC: 5A09357 Assistance with Respiratory Ventilation, Less than 24 Consecutive Hours, Continuous Positive Airway Pressure (ICD-10-PCS; principal; 2024-01-13)
PROC: 5A09357 Assistance with Respiratory Ventilation, Less than 24 Consecutive Hours, Continuous Positive Airway Pressure (ICD-10-PCS; 2024-01-14)
PROC: 5A09357 Assistance with Respiratory Ventilation, Less than 24 Consecutive Hours, Continuous Positive Airway Pressure (ICD-10-PCS; 2024-01-15)
PROC: 5A09357 Assistance with Respiratory Ventilation, Less than 24 Consecutive Hours, Continuous Positive Airway Pressure (ICD-10-PCS; 2024-01-16)
PROC: 5A09357 Assistance with Respiratory Ventilation, Less than 24 Consecutive Hours, Continuous Positive Airway Pressure (ICD-10-PCS; 2024-01-17)
PROC: 5A09357 Assistance with Respiratory Ventilation, Less than 24 Consecutive Hours, Continuous Positive Airway Pressure (ICD-10-PCS; 2024-01-18)
PROC: 5A09357 Assistance with Respiratory Ventilation, Less than 24 Consecutive Hours, Continuous Positive Airway Pressure (ICD-10-PCS; 2024-01-19)
DX: N17.0 Acute kidney failure with tubular necrosis (principal); J96.01 Acute respiratory failure with hypoxia; J44.1 Chronic obstructive pulmonary disease with (acute) exacerbation; E87.1 Hypo-osmolality and hyponatremia; I13.0 Hypertensive heart and chronic kidney disease with heart failure and stage 1 through stage 4 chronic kidney disease, or unspecified chronic kidney disease; E87.5 Hyperkalemia; I95.9 Hypotension, unspecified; Z66 Do not resuscitate; D72.829 Elevated white blood cell count, unspecified; I25.10 Atherosclerotic heart disease of native coronary artery without angina pectoris; K21.9 Gastro-esophageal reflux disease without esophagitis; E11.65 Type 2 diabetes mellitus with hyperglycemia; E11.22 Type 2 diabetes mellitus with diabetic chronic kidney disease; N18.32 Chronic kidney disease, stage 3b; I50.9 Heart failure, unspecified; E78.5 Hyperlipidemia, unspecified; F17.210 Nicotine dependence, cigarettes, uncomplicated; Z95.0 Presence of cardiac pacemaker; Z80.3 Family history of malignant neoplasm of breast; Z80.0 Family history of malignant neoplasm of digestive organs; Z79.899 Other long term (current) drug therapy

== ENCOUNTER 2024-01-19 13:26 | Inpatient (IN) | payer OTHER, MEDICARE ==
[~2024-01-19] VITALS: Ht 172.7 cm; Wt 75.7 kg
[2024-01-19] MEDS ORDERED: MORPHINE Sulfate 2 MG/ML SYR IV PRN (13:55)
[2024-01-19] MEDS ORDERED: ATROPINE SULFATE 1% 2 ML BOTTLE SL PRN (14:00)
[2024-01-19] MEDS ORDERED: LORazepam 2 MG/ML VIAL IV PRN (14:00)
[2024-01-19 16:00] VITALS: BP 123/74
[2024-01-19] MEDS ORDERED: MORPHINE Sulfate 2 MG/ML SYR IV SCH (16:00)
[2024-01-19] MEDS ORDERED: LORazepam 2 MG/ML VIAL IV SCH (18:00)
[2024-01-20] VITALS: BP 115/59
[2024-01-20 08:00] VITALS: BP 116/62
[2024-01-21 08:00] VITALS: BP 118/53
[2024-01-21] MEDS ORDERED: Water, Sterile 10 ML VIAL ONE (11:33)
[2024-01-22] VITALS: BP 90/38
== END 2024-01-22 06:08 | DRG 189 ==
LOC: 4E 13:26
PROVIDERS: ADMIT Internal Medicine; ATTEND Internal Medicine
PROC: 5A09457 Assistance with Respiratory Ventilation, 24-96 Consecutive Hours, Continuous Positive Airway Pressure (ICD-10-PCS; principal; 2024-01-19)
DX: J96.01 Acute respiratory failure with hypoxia (principal); N17.0 Acute kidney failure with tubular necrosis; J44.1 Chronic obstructive pulmonary disease with (acute) exacerbation; E87.1 Hypo-osmolality and hyponatremia; D72.829 Elevated white blood cell count, unspecified; Z66 Do not resuscitate; E87.5 Hyperkalemia; I95.9 Hypotension, unspecified; N18.32 Chronic kidney disease, stage 3b; E11.22 Type 2 diabetes mellitus with diabetic chronic kidney disease; M25.551 Pain in right hip; I27.20 Pulmonary hypertension, unspecified; K21.9 Gastro-esophageal reflux disease without esophagitis; E78.5 Hyperlipidemia, unspecified; E11.65 Type 2 diabetes mellitus with hyperglycemia; Z51.5 Encounter for palliative care